=== PATIENT | female | born 1995 | race Caucasian/White ===

== ENCOUNTER 2019-10-18 07:13 | Emergency (ER) | payer MEDICAID, SELFPAY ==
--- NOTE | 2019-10-18 07:15 | ED_ITS ---
Documented by User: LUIS CARLOS eDjesus 10/18/19 10:06 HPI - General: Chief complaint: Vaginal Bleeding Stated complaint: 10 WEEKS AND BLEEDING AND CRAMPING Time Seen by Provider: 10/18/19 07:14 Source: patient Mode of arrival: ambulatory Limitations: no limitations History of Present Illness: HPI Narrative: Patient is a 24-year-old fema le here at approximately 10 weeks for complaints of pelvic cramping and bleeding that began around 2 AM this morning. She states she is passing blood clots. Patient also reports feeling lightheaded and has had 2 presyncopal episodes. Patient states she has been seen Dr. Fall for her OB care. She has not had an ultrasound performed yet due to her Medicaid delay. They have tried to visualize on bedside US as well as using doppler for heart tones but have been unsuccessful at establishing HR. MD Complaint: vaginal bleeding Onset (ago): hour(s) Quality: Cramping Radiation: pelvis Relieving factors: none Exacerbating factors: none Vaginal discharge: none Vaginal bleeding: heavy and clots Patient : Yes Associated symptoms: Deny abdominal pain, dysuria, headache(s), malaise, nausea, syncope, vaginal discharge or vomiting Review of Systems General: Reports: 10 or more systems reviewed and unremarkable except in HPI and below Const: Denies: fever, chills, body aches, fatigue or malaise Eyes: Denies: change in vision, blurry vision or photophobia Card: Reports: lightheadedness and pre-syncope; Denies: chest pain, palpitations, irregular heart rhythm, edema, syncope, shortness of breath on exertion or shortness of breath when lying down Resp: Denies: shortness of breath, productive cough, pain on inspiration, coughing up blood or chest congestion GI: Denies: abdominal pain, nausea, vomiting or diarrhea : Reports: vaginal bleeding and pelvic pain; Denies: flank pain, difficulty urinating, painful urination, urinary frequency, urinary urgency, urinary hesitancy, blood in urine, genital lesion, genital itching, vaginal odor or vaginal discharge Musc: Denies: neck pain or back pain Skin/Breast: Denies: rash Neuro: Denies: headache, numbness in extremities, weakness in extremities, changes in sensation, lack of coordination or difficulty walking PFSH ED PFSH: Social History Smoking and tobacco status: never smoked Physical Exam Const: COMMON NORMALS: no apparent distress, average body habitus, oriented x3, no limitations, healthy appearing, alert and well nourished Resp: COMMON NORMALS: normal respiratory effort and clear to auscultation bilaterally AUSCULTATION: clear to auscultation bilaterally Cardio: COMMON NORMALS: regular rhythm RATE: tachycardic (mild) RHYTHM: regular rhythm GI: COMMON NORMALS: normal to inspection, nondistended, normoactive bowel sounds, soft to palpation, no hepatosplenomegaly and no masses PALPATION: Yes soft, Yes tender (lower abdomen/pelvis; cramping per patient ) and Yes no hepatosplenomegaly : COMMON NORMALS: Yes no CVA tenderness BLADDER/KIDNEY EXAM: Yes no CVA tenderness SPECULUM EXAM - CERVIX: Yes cervical os open, Yes tissue present in the cervical os and Yes cervical bleeding OB/EXTERNAL & SPECULUM: cervical os open Back/Pelvis: COMMON NORMALS: no CVA tenderness Neuro: COMMON NORMALS: oriented x3 SENSORIUM/ORIENTATION: Yes alert Skin: COMMON NORMALS: no rashes or lesions noted GENERAL SKIN EXAM: no rashes or lesions noted Course Vital Signs: Vital signs: Vital Signs Temperature 97.8 F 10/18/19 07:21 Pulse Rate 86 10/18/19 10:08 Respiratory Rate 18 10/18/19 07:21 Blood Pressure 93/46 10/18/19 10:08 Pulse Oximetry 100 10/18/19 10:08 MDM - OB/Uterine Contractions MDM Narrative: Medical decision making narrative: pt on speculum exam had a dilated cervix with clots and products in canal and within cervix; these were removed and pt was monitored here for another hour to assess for bleeding; at this time she states bleeding has slowed significantly; her vitals and H/H are stable; she is stable for DC with follow up with OB; hcg today is roughly 1400-I have no comparisons; unknown whether this was ever a viable given we never had a confirmed heartbeat; strict return to ED precautions given; otherwise she needs to follow up with her OB Dr. Fall. Lab Data: Labs: Lab Results 10/18/19 10/18/19 10/18/19 Range/Units 07:35 07:35 07:35 WBC 12.4 H (4.0-10.0) 10^3/ uL RBC 3.59 L (4.1-5.3) 10^6/u L Hgb 10.7 L (11.5-15.3) g/dL Hct 33.0 L (37.0-47.0) % MCV 91.9 (81-99) fL MCH 29.8 (28.0-34.0) pg MCHC 32.4 (30.0-36.0) g/dL RDW 13.1 (12.1-15.1) % Plt Count 275 (130-400) 10^3/c mm MPV 9.6 (7.4-10.4) fL Neut % (Auto) 76.7 % Lymph % (Auto) 17.2 % [place] % (Auto) 4.7 % Eos % (Auto) 0.8 % Baso % (Auto) 0.3 % Neut # (Auto) 9.5 H (1.8-7.7) 10^3/u L Lymph # (Auto) 2.1 (0.8-4.8) 10^3/u L [place] # (Auto) 0.6 (0.2-0.9) 10^3/u L Eos # (Auto) 0.1 (0.0-0.8) 10^3/u L Baso # (Auto) 0.0 (0.0-0.1) 10^3/u L Nucleated RBC % (a uto) 0 % Nucleated RBCs # 0.0 /100WBC Sodium 137 (136-145) mmol/L Potassium 3.5 (3.5-5.1) mmol/L Chloride 102 (98-107) mmol/L Carbon Dioxide 21 L (22-29) mmol/L Anion Gap 17.5 (5-19) BUN 8 (6-20) mg/dL Creatinine 0.8 (0.5-0.9) mg/dL GFR Calculation 89.7 L (90-130) mL/min Glucose 153 H (65-115) mg/dL Calculated Osmolal ity 283 L (285-295) mOsm/k g Calcium 9.1 (8.5-10.5) mg/dL Total Bilirubin 0.2 (0.15-1.2) mg/dL AST 14 (0-32) U/L ALT 9 (0-33) U/L Alkaline Phosphata se 55 (35-105) IU/L Total Protein 6.3 L (6.6-8.7) g/dL Albumin 4.3 (3.5-5.2) g/dL Globulin 2.0 (1.3-4.6) g/dL Ser , Ricky i-Qnt 1409.00 mIU/mL Blood Type O Positive Rho(D) Type Positive Imaging Data^: US OB : Radiologist's impression: [address] [address] Ultrasound Report Signed Patient: Gaby Coyle Unit #: [id number] : 1995 Age/Sex: 24 / F ADM Date: 10/18/19 Loc: ER Room/Bed: Attending Dr: Ordering Provider/Ordering MD: Minoo Maher Date of Service: 10/18/19 Procedure(s): US OB limited 97368 Accession Number(s): [id number] Report Number: [id number] WS: [id number] Pelvic ultrasound, limited. HISTORY: Bleeding and cramping, approximately 10 weeks . Limited transabdominal imaging of the uterus and adnexa. Uterus is enlarged and anteverted. Thickened heterogeneous appearance of the endometrium. Endometrium measures 4.1 cm. There is a small amount of fluid along the endometrial canal. Normal size LEFT ovary. Small corpus luteum associated with the RIGHT ovary measuring 2.0 x 1.8 cm. No free fluid. US/US OB limited [id number] IMPRESSION: 1. No intrauterine gestation identified. 2. Thickened heterogeneous endometrium. Probably due to incomplete spontaneous . Please correlate with decreasing beta hCG levels to exclude ectopic . Dictated By: Roma Lopez DO Signed By: Roma Lopez DO Signed Date/Time: 10/18/19903 DD/ 0 Discharge Plan Discharge Patient Disposition: Home, Self-Care Clinical Impression: Incomplete Condition: Stable Prescriptions: No Action No Known Home Medications RF: 0 Discharge Orders: Discharge Order (Routine); Ordered 10/18/19 Ordered By: Minoo Maher Referrals: Du Fall MD [Family Provider] - Discharge Diet: Usual diet Discharge Activity: Increase activity as tolerated Patient Instructions: Spontaneous , Spontaneous Miscarriage (ED) Activity Restrictions/Additional Instructions: As discussed go ahead and contact your OB/Dr. Fall so he is aware and can continue to monitor you. You need to return to the emergency department for severe bleeding (soaking more than a pad an hour), lightheadedness/dizziness, severe pelvic pain/cramping, or any other concerns you may have. Discharge Date/Time: 10/18/19 10:08 Coding Level of Care Code ED Obstetrics Gyn for Chg Fwd Exam Detailed Documented by User: Juan Carlos Rooney DO 10/18/19 11:12 HPI - General: Chief complaint: Vaginal Bleeding Stated complaint: 10 WEEKS AND BLEEDING AND CRAMPING Time Seen by Provider: 10/18/19 07:14 [facility] ED PFSH: Social History Smoking and tobacco status: never smoked Course Vital Signs: Vital signs: Vital Signs Temperature 97.8 F 10/18/19 07:21 Pulse Rate 86 10/18/19 10:08 Respiratory Rate 18 10/18/19 07:21 Blood Pressure 93/46 10/18/19 10:08 Pulse Oximetry 100 10/18/19 10:08 MDM - OB/Uterine Contractions MDM Narrative: Medical decision making narrative: Discussed case with Minoo Maher. Agree with assessment and plan Lab Data: Labs: Lab Results 10/18/19 10/18/19 10/18/19 Range/Units 07:35 07:35 07:35 WBC 12.4 H (4.0-10.0) 10^3/ uL RBC 3.59 L (4.1-5.3) 10^6/u L Hgb 10.7 L (11.5-15.3) g/dL Hct 33.0 L (37.0-47.0) % MCV 91.9 (81-99) fL MCH 29.8 (28.0-34.0) pg MCHC 32.4 (30.0-36.0) g/dL RDW 13.1 (12.1-15.1) % Plt Count 275 (130-400) 10^3/c mm MPV 9.6 (7.4-10.4) fL Neut % (Auto) 76.7 % Lymph % (Auto) 17.2 % [place] % (Auto) 4.7 % Eos % (Auto) 0.8 % Baso % (Auto) 0.3 % Neut # (Auto) 9.5 H (1.8-7.7) 10^3/u L Lymph # (Auto) 2.1 (0.8-4.8) 10^3/u L [place] # (Auto) 0.6 (0.2-0.9) 10^3/u L Eos # (Auto) 0.1 (0.0-0.8) 10^3/u L Baso # (Auto) 0.0 (0.0-0.1) 10^3/u L Nucleated RBC % (a uto) 0 % Nucleated RBCs # 0.0 /100WBC Sodium 137 (136-145) mmol/L Potassium 3.5 (3.5-5.1) mmol/L Chloride 102 (98-107) mmol/L Carbon Dioxide 21 L (22-29) mmol/L Anion Gap 17.5 (5-19) BUN 8 (6-20) mg/dL Creatinine 0.8 (0.5-0.9) mg/dL GFR Calculation 89.7 L (90-130) mL/min Glucose 153 H (65-115) mg/dL Calculated Osmolal ity 283 L (285-295) mOsm/k g Calcium 9.1 (8.5-10.5) mg/dL Total Bilirubin 0.2 (0.15-1.2) mg/dL AST 14 (0-32) U/L ALT 9 (0-33) U/L Alkaline Phosphata se 55 (35-105) IU/L Total Protein 6.3 L (6.6-8.7) g/dL Albumin 4.3 (3.5-5.2) g/dL Globulin 2.0 (1.3-4.6) g/dL Ser , Ricky i-Qnt 1409.00 mIU/mL Blood Type O Positive Rho(D) Type Positive Discharge Plan Discharge Patient Disposition: Home, Self-Care Clinical Impression: Incomplete Condition: Stable Prescriptions: No Action No Known Home Medications RF: 0 Discharge Orders: Discharge Order (Routine); Ordered 10/18/19 Ordered By: Minoo Maher Referrals: Du Fall MD [Family Provider] - Discharge Diet: Usual diet Discharge Activity: Increase activity as tolerated Patient Instructions: Spontaneous , Spontaneous Miscarriage (ED) Activity Restrictions/Additional Instructions: As discussed go ahead and contact your OB/Dr. Fall so he is aware and can continue to monitor you. You need to return to the emergency department for severe bleeding (soaking more than a pad an hour), lightheadedness/dizziness, severe pelvic pain/cramping, or any other concerns you may have. Discharge Date/Time: 10/18/19 10:08 Coding Level of Care Code ED Obstetrics Gyn for Chg Fwd Exam Detailed
[2019-10-18 07:21] VITALS: BP 108/69; PULSE 110; RESP 18; TEMP 36.6; O2SAT 100; BMI 21.6
--- NOTE | 2019-10-18 07:22 | US_ITS ---
WS: [id number] Pelvic ultrasound, limited. HISTORY: Bleeding and cramping, approximately 10 weeks . Limited transabdominal imaging of the uterus and adnexa. Uterus is enlarged and anteverted. Thickened heterogeneous appearance of the endometrium. Endometrium measures 4.1 cm. There is a small amount of fluid along the endometrial canal. Normal size LEFT ovary. Small corpus luteum associated with the RIGHT ovary measuring 2.0 x 1.8 cm. N o free fluid. US/US OB limited [id number] IMPRESSION: 1. No intrauterine gestation identified. 2. Thickened heterogeneous endometrium. Probably due to incomplete spontaneous . Please correlate with decreasing beta hCG levels to exclude ectopic .
[2019-10-18] MEDS: sodium chloride 0.9% 1,000 ML 999 ML IV (07:43)
[2019-10-18 07:44] LABS: Basophils % 0.3 %; Eosinophils # 0.1 10^3/uL (0.0-0.8); Eosinophils % 0.8 %; Hemoglobin 10.7 g/dL (11.5-15.3); Lymphocytes # 2.1 10^3/uL (0.8-4.8); Lymphocytes % 17.2 %; Mean Corpuscular HGB Conc 32.4 g/dL (30.0-36.0); Mean Corpuscular Hemoglobin 29.8 pg (28.0-34.0); Mean Corpuscular Volume 91.9 fL (81-99); Mean Platelet Volume 9.6 fL (7.4-10.4); Monocytes # 0.6 10^3/uL (0.2-0.9); Monocytes % 4.7 %; Neutrophils # 9.5 10^3/uL (1.8-7.7); Neutrophils % 76.7 %; Nucleated Red Blood Cells % 0 %; Platelet Count 275 10^3/cmm (130-400); Red Blood Count 3.59 10^6/uL (4.1-5.3); Red Cell Distribution Width 13.1 % (12.1-15.1); White Blood Count 12.4 10^3/uL (4.0-10.0)
--- NOTE | 2019-10-18 07:45 | PC.NURSE ---
ultrasound at bedside
[2019-10-18] MEDS: ondansetron 2 mg/ML SDV 2 mL 4 MG IVP (08:03)
[2019-10-18] MEDS: morphine 4 mg/mL SDV 1 mL IVP (08:03)
[2019-10-18 08:33] LABS: Alanine Aminotransferase 9 U/L (0-33); Albumin Level 4.3 g/dL (3.5-5.2); Alkaline Phosphatase 55 IU/L (35-105); Anion Gap 17.5 (5-19); Aspartate Amino Transferase 14 U/L (0-32); Blood Urea Nitrogen 8 mg/dL (6-20); Calcium 9.1 mg/dL (8.5-10.5); Carbon Dioxide 21 mmol/L (22-29); Chloride 102 mmol/L (98-107); Glomerular Filtration Rate 89.7 mL/min (90-130); Glucose 153 mg/dL (65-115); Osmolality Calculated 283 mOsm/kg (285-295); Potassium 3.5 mmol/L (3.5-5.1); Sodium 137 mmol/L (136-145); Total Bilirubin 0.2 mg/dL (0.15-1.2); Total Protein 6.3 g/dL (6.6-8.7)
[2019-10-18 09:00] VITALS: BP 100/56; PULSE 76; O2SAT 100
[2019-10-18 10:08] VITALS: BP 93/46; PULSE 86; O2SAT 100
== END 2019-10-18 10:08 | disposition home or self-care (01) ==
PROVIDERS: Emergency Provider Physician Assistant; Family Provider Family Medicine; PCP Pediatrics Adolescent Medicine
DX: O03.4 Incomplete spontaneous abortion without complication (principal)
CPT/HCPCS: 12345; 36415; 76815; 80053; 84702; 85025; 86900; 96360; 96361; 96374; 96375; 99283; J2270; J2405; J7030

== ENCOUNTER 2019-10-21 15:28 | Emergency (ER) | payer MEDICAID, SELFPAY ==
[2019-10-21 15:37] VITALS: BP 97/70; PULSE 84; RESP 18; TEMP 36.6; O2SAT 100; BMI 22.8
--- NOTE | 2019-10-21 15:43 | USR_ITS ---
PROCEDURE INFORMATION: Exam: US Pelvis Complete, Transabdominal Exam date and time: 10/21/2019 4:46 PM Age: 24 years old Clinical indication: Pelvic pain; Patient HX: PT arrived in er 10-18-19 having miscarriage. N. P. Stated she had tissue removed from cerix area. Has not had any bleeding or passed any more clots since but is now have increased pain in RT side more than lt. Endo is thick and multitextured; Additional info: Miscarriage possible poc present TECHNIQUE: Imaging protocol: Real-time transabdominal pelvic ultrasound with image documentation. Complete exam. COMPARISON: US OB limited [id number] 10/18/2019 7:50 AM FINDINGS: Uterus/cervix: Uterus is normal. Endometrial stripe is there is a thickened endometrial tissues with focal areas of increased echogenicity scattered within it. Retained products of conception cannot be ruled out. Right adnexa: Ovary benign cyst 1.9 cm x 1.4 cm x 1.7 cm. No mass. Normal blood flow. Right ovary measures 4.2 cm x 3.7 cm x 2.1 cm Left adnexa: Ovary unremarkable No mass. Normal blood flow. Left ovary measures 2.4 cm x 1.2 cm x 2.7 cm Free fluid: None. Bladder: Normal. US/US pelvic with transvaginal IMPRESSION: 1. Thickened endometrial tissues possible retained products of conception. 2. Otherwise negative examination of the uterus and cervix. 3. Simple cyst right ovary. 4. Negative left ovary
--- NOTE | 2019-10-21 15:52 | W.ED.ABDPA2 ---
HPI - Abdominal Pain General: Chief Complaint: Abdominal Pain Stated Complaint: abd pain Time Seen by Provider: 10/21/19 15:37 History of Present Illness: HPI narrative: Patient complains about abdominal pain since this morning. Did have a miscarriage on Friday and was seen here in the ER. Products of conception were obtained patient started with some brownish-reddish discharge since the miscarriage. And that is continuing. Denies any fever chills nausea vomiting. Denies any stress or emotional outburst. MD elicited complaint: abdominal pain Pertinent past history: other (Recent miscarriage) Onset (ago): hour(s) Pain Consistency: constant Location: Suprapubic Severity: mild Quality: aching Radiation: none Exacerbating factors: nothing Relieving factors: nothing Associated Symptoms: Reports no associated symptoms; Denies chills, fever(s), nausea and vomiting Related Data: Date of Last Menstrual Period: 07/20/19 Review of Systems Const: Denies: fever, chills or body aches Eyes: Denies: change in vision or blurry vision ENMT: Denies: throat pain or nasal congestion Card: Denies: chest pain or shortness of breath on exertion Resp: Denies: shortness of breath, productive cough or non-productive cough GI: Reports: abdominal pain; Denies: nausea or vomiting : Reports: vaginal discharge (Brownish-red) Musc: Denies: extremity pain Skin/Breast: Denies: rash Neuro: Denies: headache Psych: Denies: anxiety or depression [place]/Lymph: Denies: easy bruising PFSH ED PFSH: Social History Smoking and tobacco status: never smoked Female Reproductive History: Date of last menstrual period: 07/20/19 Physical Exam Const: COMMON NORMALS: no apparent distress, average body habitus and oriented x3 HENMT: COMMON NORMALS: normocephalic HEAD & SCALP: normal to inspection and normocephalic FACE & SINUS: normal facial exam Eye: COMMON NORMALS: conjunctivae normal GENERAL EYE: normal appearance of both eyes CONJUNCTIVA: Yes conjunctivae normal Neck/C-Spine: COMMON NORMALS: no JVD Chest: COMMONS NORMALS: inspection of chest normal Resp: COMMON NORMALS: normal respiratory effort and clear to auscultation bilaterally AUSCULTATION: clear to auscultation bilaterally Cardio: COMMON NORMALS: no JVD, regular rate and regular rhythm RATE: regular rate RHYTHM: regular rhythm GI: COMMON NORMALS: normal to inspection, nondistended, normoactive bowel sounds and soft to palpation AUSCULTATION: Yes normoactive bowel sounds PALPATION: Yes soft and Yes tender Details: LLQ and RLQ : SPECULUM EXAM - VAGINA: No vaginal bleeding, No tissue present in vagina, No vaginal tenderness and Yes vaginal discharge (mucus looking) OB/EXTERNAL & SPECULUM: no tissue noted in vagina and vaginal bleeding Extremity: COMMON NORMALS: normal to inspection and full ROM Neuro: COMMON NORMALS: oriented x3 Course Vital Signs: Vital signs: Vital Signs Temperature 98 F 10/21/19 15:37 Pulse Rate 84 10/21/19 15:37 Respiratory Rate 18 10/21/19 15:37 Blood Pressure 107/74 10/21/19 16:52 Pulse Oximetry 100 10/21/19 15:37 MDM - Abdominal Pain MDM Narrative: Medical decision making narrative: discussed case with Dr. Hernandez and Dr. Rooney. orthos are documented Lab Data: Labs: Lab Results 10/21/19 10/21/19 10/21/19 Range/Units 15:59 15:59 16:28 WBC 6.7 (4.0-10.0) 10^3/ uL RBC 2.62 L (4.1-5.3) 10^6/u L Hgb 7.8 L (11.5-15.3) g/dL Hct 24.5 L (37.0-47.0) % MCV 93.5 (81-99) fL MCH 29.8 (28.0-34.0) pg MCHC 31.8 (30.0-36.0) g/dL RDW 13.4 (12.1-15.1) % Plt Count 272 (130-400) 10^3/c mm MPV 9.7 (7.4-10.4) fL Neut % (Auto) 50.4 % Lymph % (Auto) 41.4 % [place] % (Auto) 5.6 % Eos % (Auto) 1.9 % Baso % (Auto) 0.4 % Neut # (Auto) 3.4 (1.8-7.7) 10^3/u L Lymph # (Auto) 2.8 (0.8-4.8) 10^3/u L [place] # (Auto) 0.4 (0.2-0.9) 10^3/u L Eos # (Auto) 0.1 (0.0-0.8) 10^3/u L Baso # (Auto) 0.0 (0.0-0.1) 10^3/u L Nucleated RBC % (a uto) 0 % Nucleated RBCs # 0.0 /100WBC Sodium 141 (136-145) mmol/L Potassium 3.5 (3.5-5.1) mmol/L Chloride 108 H (98-107) mmol/L Carbon Dioxide 23 (22-29) mmol/L Anion Gap 13.5 (5-19) BUN 12 (6-20) mg/dL Creatinine 0.6 (0.5-0.9) mg/dL GFR Calculation 125.0 (90-130) mL/min Glucose 91 (65-115) mg/dL Calculated Osmolal ity 288 (285-295) mOsm/k g Calcium 9.1 (8.5-10.5) mg/dL Ser , Ricky i-Qnt 199.90 mIU/mL Urine Color Yellow (Yellow) Urine Appearance Cloudy (CLEAR) Urine pH 7 (5-7) Ur Specific Gravit y 1.020 (1.005-1.030) Urine Protein Neg (Negative) Urine Glucose (UA) Norm (Normal) Urine Ketones Negative (Negative) Urine Blood 3+ H (Negative) Urine Nitrate Negative (Negative) Urine Bilirubin Neg (NEGATIVE) Urine Urobilinogen Norm (Negative) mg/dL Ur Leukocyte Desi ase Negative (Negative) Discharge Plan Discharge Patient Disposition: Home, Self-Care Clinical Impression: Hemoglobin low Abdominal pain Qualifiers: Abdominal location: lower abdomen, unspecified Qualified Code(s): R10.30 - Lower abdominal pain, unspecified Condition: Stable Prescriptions: New FeroSul 325 mg (65 mg iron) tablet 325 mg PO BID 30 Days Qty: 60 RF: 0 No Action ibuprofen 800 mg tablet 800 mg PO PRN RF: 0 Discharge Orders: Discharge Order (Routine); Ordered 10/21/19 Ordered By: Nathan Escobar Referrals: Du Fall MD [Primary Care Provider] - Discharge Diet: As Directed Discharge Activity: Increase activity as tolerated Patient Instructions: Abdominal Pain (ED), Anemia (ED) Activity Restrictions/Additional Instructions: Follow-up with medical provider as directed. Take medications as prescribed. Return to the ER or your medical provider if condition worsens. Please read and understand discharge instructions. If any questions ask please. Follow-up Dr. Fall next 2 days. Rest drink plenty of fluids eat foods rich in iron. 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
[2019-10-21] MEDS: HYDROcodone-acetaminophen 7.5-325 mg Tablet 1 TAB PO (16:01)
[2019-10-21 16:08] LABS: Basophils % 0.4 %; Eosinophils # 0.1 10^3/uL (0.0-0.8); Eosinophils % 1.9 %; Hematocrit 24.5 % (37.0-47.0); Hemoglobin 7.8 g/dL (11.5-15.3); Lymphocytes # 2.8 10^3/uL (0.8-4.8); Lymphocytes % 41.4 %; Mean Corpuscular HGB Conc 31.8 g/dL (30.0-36.0); Mean Corpuscular Hemoglobin 29.8 pg (28.0-34.0); Mean Corpuscular Volume 93.5 fL (81-99); Mean Platelet Volume 9.7 fL (7.4-10.4); Monocytes # 0.4 10^3/uL (0.2-0.9); Monocytes % 5.6 %; Neutrophils # 3.4 10^3/uL (1.8-7.7); Neutrophils % 50.4 %; Nucleated Red Blood Cells % 0 %; Platelet Count 272 10^3/cmm (130-400); Red Blood Count 2.62 10^6/uL (4.1-5.3); Red Cell Distribution Width 13.4 % (12.1-15.1); White Blood Count 6.7 10^3/uL (4.0-10.0)
[2019-10-21 16:33] LABS: Anion Gap 13.5 (5-19); Blood Urea Nitrogen 12 mg/dL (6-20); Calcium 9.1 mg/dL (8.5-10.5); Carbon Dioxide 23 mmol/L (22-29); Chloride 108 mmol/L (98-107); Glucose 91 mg/dL (65-115); Osmolality Calculated 288 mOsm/kg (285-295); Potassium 3.5 mmol/L (3.5-5.1); Sodium 141 mmol/L (136-145)
[2019-10-21 16:52] VITALS: BP 107/74
[2019-10-21 16:52] LABS: Bilirubin Urine Neg (NEGATIVE); Glucose Urine UA Norm (Normal); Ketones Urine Negative (Negative); Leukocyte Esterase Urine Negative (Negative); Nitrate Urine Negative (Negative); Protein Urine Neg (Negative); Urine Appearance Cloudy (CLEAR); Urine Color Yellow (Yellow); Urobilinogen Urine Norm (Negative); pH Urine 7 (5-7)
[2019-10-21 16:53] LABS: Add Urine Microscopic? YES; Blood Urine 3+ (Negative)
--- NOTE | 2019-10-21 16:53 | PC.NURSE ---
lay 107/74 HR 81 SIT 111/73 HR 98 STAND 119/81 100
--- NOTE | 2019-10-21 16:57 | PC.NURSE ---
PELVIC COMPLETED, PATEINT TOLERATED WELL
--- NOTE | 2019-10-21 16:59 | PC.NURSE ---
US COMPLETED, PATIENT TOLERATED WELL
[2019-10-21 17:02] LABS: Add Urine Culture? No; Amorphous Sediment Urine 1+; Bacteria Urine TRACE; Mucus Urine 1+; Squamous Epithelial Cell Urine 0-4 (0-5); WBC Urine 0-4 /hpf (0-5)
[2019-10-21 17:07] VITALS: BP 107/74; PULSE 98; RESP 18; O2SAT 100
== END 2019-10-21 17:12 | disposition home or self-care (01) ==
PROVIDERS: Emergency Provider Nurse Practitioner Family; Family Provider Family Medicine; PCP Family Medicine
DX: D64.9 Anemia, unspecified (principal); R10.30 Lower abdominal pain, unspecified
CPT/HCPCS: 12345; 36415; 76830; 76856; 80048; 81001; 84702; 85025; 99283

== ENCOUNTER 2019-12-22 07:04 | Emergency (ER) | payer MEDICAID, SELFPAY ==
[2019-12-22 07:08] VITALS: BMI 22.3
[2019-12-22 07:11] VITALS: BP 111/75; PULSE 120; RESP 16; TEMP 36.8; O2SAT 97
--- NOTE | 2019-12-22 07:16 | XR_ITS ---
WS: [id number] XR chest 1V portable [id number] REASON FOR EXAM: dyspnea/cough FINDINGS: One view evaluation of the chest shows normal appearance the heart and mediastinal interfac es. [place] the lung weathers are well aerated. No pneumonia, pleural effusion, pulmonary edema, no mass effect. The hilum and apices normal. No osseous abnormalities. XR/XR chest 1V portable [id number] IMPRESSION: Negative chest for acute pathology.
[2019-12-22 08:30] LABS: Protein Urine 3+ (Negative); Specific Gravity, Urine 1.015 (1.005-1.030); Urine Appearance Cloudy (CLEAR); Urine Color Yellow (Yellow)
--- NOTE | 2019-12-22 08:30 | ED_ITS ---
HPI - Fever General: Chief Complaint: Fever Stated Complaint: FEVER, COUGH, SOB Time Seen by Provider: 12/22/19 07:16 History of Present Illness: HPI Narrative: 24-year-old female presents emergency room with fever for the last 3 days intermittent she has a slight nonproductive cough. She is concerned she may have COVID-19. She is not been exposed to anyone that she knows of she has 2 small children at the age of 3 living with her as well as a boyfriend none of them have any symptoms at this point. She has had nausea and vomiting and 1 or 2 episodes of diarrhea. With the vomiting she is had a few episodes of streaked blood in the vomitus but very minimal. MD elicited complaint: fever Associated symptoms: Deny abdominal pain, flank pain, chills, chest pain, di arrhea, dysuria, nasal congestion, nausea or vomiting Review of Systems Const: Denies: fever(s), chills, body aches, change in appetite, fatigue or malaise ENMT: Denies: throat pain, ear or mastoid pain, nasal discharge or nasal congestion Card: Denies: chest pain, edema, dyspnea on exertion or orthopnea Resp: Denies: dyspnea, productive cough or non-productive cough GI: Denies: abdominal pain, nausea, vomiting, hematemesis, coffee ground emesis, diarrhea, constipation, bloating, hematochezia or melena : Denies: flank pain, difficulty voiding, dysuria, urinary frequency or urinary urgency Skin/Breast: Denies: rash or pruritus PFS ED PFSH: Social History Smoking and tobacco status: never smoked Female Reproductive History: Date of last menstrual period: 12/22/19 Physical Exam Const: COMMON NORMALS: no acute distress GENERAL APPEARANCE: cooperative and comfortable ORIENTATION/CONSCIOUSNESS: Yes awake, Yes oriented to person, Yes oriented to place and Yes oriented to time HENMT: COMMON NORMALS: normocephalic, atraumatic, hearing grossly normal bilaterally, external ears normal, EAC's normal, TM's normal bilaterally, Normal nasal mucous membranes and turbinates present, moist oral mucous membranes and oropharynx normal HEAD & SCALP: normocephalic and atraumatic NOSE: Normal nasal mucous membranes and turbinates present EXTERNAL EAR: Yes external ears normal EXTERNAL AUDITORY CANAL: EAC's normal TYMPANIC MEMBRANE: TM's normal bilaterally Eye: COMMON NORMALS: Equal, round and reactive pupils present, EOMs intact bilaterally, conjunctivae normal and no scleral icterus CONJUNCTIVA: Yes conjunctivae normal PUPIL: Yes Equal, round and reactive pupils present Neck/C-Spine: COMMON NORMALS: full ROM, no lymphadenopathy, supple and no JVD Lymph: LYMPHATIC: no lymphadenopathy noted and no lymphedema noted Resp: COMMON NORMALS: normal respiratory effort, No retractions, No use of accessory muscles and clear to auscultation bilaterally AUSCULTATION: clear to auscultation bilaterally Cardio: COMMON NORMALS: no JVD, regular rate, regular rhythm and No murmurs present (Cardio) RATE: regular rate RHYTHM: regular rhythm GI: COMMON NORMALS: Soft to palpation and No hepatosplenomegaly present AUSCULTATION: Yes normoactive bowel sounds PALPATION: Yes Soft to palpation, No Tenderness to palpation present (GI), No Guarding due to palpation present (GI) and Yes No hepatosplenomegaly present : BLADDER/KIDNEY EXAM: Yes CVA tenderness Back/Pelvis: GENERAL BACK: Yes CVA tenderness CVA tenderness: left Extremity: COMMON NORMALS: normal to inspection, capillary refill normal, no clubbing, cyanosis or edema, no calf tenderness and no pedal edema Neuro: SENSORIUM/ORIENTATION: Yes oriented to person, Yes oriented to place and Yes oriented to time Skin: COMMON NORMALS: no rashes or lesions noted GENERAL SKIN EXAM: no rashes or lesions noted Course Vital Signs: Vital signs: Vital Signs Temperature 98.3 F 12/22/19 07:11 Pulse Rate 105 H 12/22/19 11:29 Respiratory Rate 16 12/22/19 11:29 Blood Pressure 106/75 12/22/19 11:29 Pulse Oximetry 100 12/22/19 11:29 MDM - Fever MDM Narrative: Medical decision making narrative: UA shows cystitis, based on her physical exam I think she does have a mild left-sided pyelonephritis. Based on her presenting complaint she was swabbed for COVID. She is given IV fluids Zofran she is feeling much better first dose of Zofran started on Cipro tomorrow return if has worsening problems. Encouraged to push fluids. If she were to have significant worsening would like her to return to the emergency room. Lab Data: Labs: Lab Results 12/22/19 12/22/19 12/22/19 Range/Units 07:40 07:40 08:20 WBC (4.0-10.0) 10^3/ uL RBC (4.1-5.3) 10^6/u L Hgb (11.5-15.3) g/dL Hct (37.0-47.0) % MCV (81-99) fL MCH (28.0-34.0) pg MCHC (30.0-36.0) g/dL RDW (12.1-15.1) % Plt Count (130-400) 10^3/c mm MPV (7.4-10.4) fL Neut % (Auto) % Lymph % (Auto) % [place] % (Auto) % Eos % (Auto) % Baso % (Auto) % Neut # (Auto) (1.8-7.7) 10^3/u L Lymph # (Auto) (0.8-4.8) 10^3/u L [place] # (Auto) (0.2-0.9) 10^3/u L Eos # (Auto) (0.0-0.8) 10^3/u L Baso # (Auto) (0.0-0.1) 10^3/u L Nucleated RBC % (a uto) % Nucleated RBCs # /100WBC Sodium 134 L (136-145) mmol/L Potassium 4.0 (3.5-5.1) mmol/L Chloride 94 L (98-107) mmol/L Carbon Dioxide 25 (22-29) mmol/L Anion Gap 19.0 (5-19) BUN 19 (6-20) mg/dL Creatinine 1.0 H (0.5-0.9) mg/dL GFR Calculation 69.3 L (90-130) mL/min Glucose 120 H (65-115) mg/dL Calculated Osmolal ity 276 L (285-295) mOsm/k g Lactate (0.5-2.2) mmol/L Calcium 9.5 (8.5-10.5) mg/dL Total Bilirubin 0.3 (0.15-1.2) mg/dL AST 17 (0-32) U/L ALT 10 (0-33) U/L Alkaline Phosphata se 62 (35-105) IU/L Total Protein 8.1 (6.6-8.7) g/dL Albumin 4.4 (3.5-5.2) g/dL Globulin 3.7 (1.3-4.6) g/dL HCG, Qual Negative (Negative) Urine Color Yellow (Yellow) Urine Appearance Cloudy (CLEAR) Urine pH 5.0 (5-7) Ur Specific Gravit y 1.015 (1.005-1.030) Urine Protein 3+ H (Negative) Urine Glucose (UA) Norm (Normal) Urine Ketones 1+ H (Negative) Urine Blood 3+ H (Negative) Urine Nitrate Negative (Negative) Urine Bilirubin Neg (NEGATIVE) Urine Urobilinogen Norm (Negative) mg/dL Ur Leukocyte Desi ase Trace H (Negative) Urine RBC 5-10 H (0-2) /hpf Urine WBC 25-40 H (0-5) /hpf Ur Squamous Epith Cells 5-10 H (0-5) Urine Bacteria 2+ H (NONE) Urine Mucus Trace Serum Ketones (Negative) 12/22/19 12/22/19 12/22/19 Range/Units 08:25 08:25 08:25 WBC 9.8 (4.0-10.0) 10^3/ uL RBC 4.28 (4.1-5.3) 10^6/u L Hgb 12.9 (11.5-15.3) g/dL Hct 38.6 (37.0-47.0) % MCV 90.2 (81-99) fL MCH 30.1 (28.0-34.0) pg MCHC 33.4 (30.0-36.0) g/dL RDW 11.9 L (12.1-15.1) % Plt Count 289 (130-400) 10^3/c mm MPV 9.8 (7.4-10.4) fL Neut % (Auto) 82.3 % Lymph % (Auto) 6.6 % [place] % (Auto) 10.6 % Eos % (Auto) 0.0 % Baso % (Auto) 0.2 % Neut # (Auto) 8.0 H (1.8-7.7) 10^3/u L Lymph # (Auto) 0.6 L (0.8-4.8) 10^3/u L [place] # (Auto) 1.0 H (0.2-0.9) 10^3/u L Eos # (Auto) 0.0 (0.0-0.8) 10^3/u L Baso # (Auto) 0.0 (0.0-0.1) 10^3/u L Nucleated RBC % (a uto) 0 % Nucleated RBCs # 0.0 /100WBC Sodium (136-145) mmol/L Potassium (3.5-5.1) mmol/L Chloride (98-107) mmol/L Carbon Dioxide (22-29) mmol/L Anion Gap (5-19) BUN (6-20) mg/dL Creatinine (0.5-0.9) mg/dL GFR Calculation (90-130) mL/min Glucose (65-115) mg/dL Calculated Osmolal ity (285-295) mOsm/k g Lactate 0.7 (0.5-2.2) mmol/L Calcium (8.5-10.5) mg/dL Total Bilirubin (0.15-1.2) mg/dL AST (0-32) U/L ALT (0-33) U/L Alkaline Phosphata se (35-105) IU/L Total Protein (6.6-8.7) g/dL Albumin (3.5-5.2) g/dL Globulin (1.3-4.6) g/dL HCG, Qual (Negative) Urine Color (Yellow) Urine Appearance (CLEAR) Urine pH (5-7) Ur Specific Gravit y (1.005-1.030) Urine Protein (Negative) Urine Glucose (UA) (Normal) Urine Ketones (Negative) Urine Blood (Negative) Urine Nitrate (Negative) Urine Bilirubin (NEGATIVE) Urine Urobilinogen (Negative) mg/dL Ur Leukocyte Desi ase (Negative) Urine RBC (0-2) /hpf Urine WBC (0-5) /hpf Ur Squamous Epith Cells (0-5) Urine Bacteria (NONE) Urine Mucus Serum Ketones Negative (Negative) Discharge Plan Discharge Patient Disposition: Home, Self-Care Clinical Impression: Pyelonephritis Condition: Stable Prescriptions: New ciprofloxacin HCl 500 mg tablet 500 mg PO BID Qty: 14 RF: 0 Zofran 4 mg tablet 4 mg PO Q6H PRN (Reason: nausea and vomiting) Qty: 20 RF: 0 Discharge Orders: Discharge Order (Routine); Ordered 12/22/19 Ordered By: Juan Carlos Rooney Referrals: Du Fall MD [Primary Care Provider] - Discharge Diet: Usual diet Discharge Activity: Increase activity as tolerated Activity Restrictions/Additional Instructions: Push fluids. Return to the emergency room for further problems. We did test you for COVID-19 today. I do recommend that you maintain full quarantine until the results are returned they should be back within the next 48 hours. Return to the emergency room if you have further problems breathing. Discharge Date/Time: 12/22/19 11:31 Coding Level of Care Code ED Events Manager for Becky Ca
[2019-12-22 08:31] LABS: Add Urine Culture? Yes; Add Urine Microscopic? YES; Bacteria Urine 2+; Bilirubin Urine Neg (NEGATIVE); Blood Urine 3+ (Negative); Glucose Urine UA Norm (Normal); HCG Qualitative Urine. Negative (Negative); Ketones Urine 1+ (Negative); Leukocyte Esterase Urine Trace (Negative); Mucus Urine TRACE; Nitrate Urine Negative (Negative); Urobilinogen Urine Norm (Negative); WBC Urine 25-40 /hpf (0-5)
[2019-12-22 08:36] LABS: Basophils % 0.2 %; Hematocrit 38.6 % (37.0-47.0); Hemoglobin 12.9 g/dL (11.5-15.3); Lymphocytes # 0.6 10^3/uL (0.8-4.8); Lymphocytes % 6.6 %; Mean Corpuscular HGB Conc 33.4 g/dL (30.0-36.0); Mean Corpuscular Hemoglobin 30.1 pg (28.0-34.0); Mean Corpuscular Volume 90.2 fL (81-99); Mean Platelet Volume 9.8 fL (7.4-10.4); Monocytes % 10.6 %; Neutrophils % 82.3 %; Nucleated Red Blood Cells % 0 %; Platelet Count 289 10^3/cmm (130-400); Red Blood Count 4.28 10^6/uL (4.1-5.3); Red Cell Distribution Width 11.9 % (12.1-15.1); White Blood Count 9.8 10^3/uL (4.0-10.0)
[2019-12-22 08:44] LABS: Ketone (Acetest) Serum Negative (Negative)
[2019-12-22 08:52] LABS: Alanine Aminotransferase 10 U/L (0-33); Albumin Level 4.4 g/dL (3.5-5.2); Alkaline Phosphatase 62 IU/L (35-105); Aspartate Amino Transferase 17 U/L (0-32); Blood Urea Nitrogen 19 mg/dL (6-20); Calcium 9.5 mg/dL (8.5-10.5); Carbon Dioxide 25 mmol/L (22-29); Chloride 94 mmol/L (98-107); Globulin 3.7 g/dL (1.3-4.6); Glomerular Filtration Rate 69.3 mL/min (90-130); Glucose 120 mg/dL (65-115); Osmolality Calculated 276 mOsm/kg (285-295); Sodium 134 mmol/L (136-145); Total Bilirubin 0.3 mg/dL (0.15-1.2); Total Protein 8.1 g/dL (6.6-8.7)
[2019-12-22 08:52] LABS: Lactate (Lactic Acid level) 0.7 mmol/L (0.5-2.2)
--- NOTE | 2019-12-22 08:54 | PC.NURSE ---
COVID TESTING COVID swab performed at this time. Test taken to lab.
[2019-12-22] MEDS: ondansetron 2 mg/ML SDV 2 mL 4 MG IVP (10:11)
[2019-12-22] MEDS: sodium chloride 0.9% 1,000 ML 999 ML IV (10:11)
[2019-12-22] MEDS: cefTRIAXone 1,000 MG in sodium chloride 0.9% (plus) 50 ML 100 MG IV (10:13)
[2019-12-22 11:29] VITALS: BP 106/75; PULSE 105; RESP 16; O2SAT 100
[2019-12-23 16:02] LABS: Quest SARS-CoV-2 RNA NOT DETECTED (NOT DETECTED)
--- NOTE | 2019-12-24 09:57 | PC.NURSE ---
Called pt to let them know that Covid 19 test was negative. Pt's name and verified before given result of covid.
== END 2019-12-22 11:31 | disposition home or self-care (01) ==
PROVIDERS: Emergency Provider Family Medicine; PCP Family Medicine
DX: N12 Tubulo-interstitial nephritis, not specified as acute or chronic (principal)
CPT/HCPCS: 12345; 36415; 71045; 80053; 81001; 81025; 82009; 83605; 85025; 87040; 87077; 87086; 87186; 87635; 96365; 96375; 99282; 99283; J0696; J2405; J7030

== ENCOUNTER 2019-12-25 15:08 | Emergency (ER) | payer MEDICAID, SELFPAY ==
[2019-12-25 15:50] VITALS: BP 119/71; PULSE 94; RESP 18; TEMP 36.8; O2SAT 98; BMI 23.0
[2019-12-25 17:06] LABS: Basophils % 0.6 %; Eosinophils # 0.1 10^3/uL (0.0-0.8); Eosinophils % 1.6 %; Hematocrit 34.4 % (37.0-47.0); Lymphocytes # 2.3 10^3/uL (0.8-4.8); Lymphocytes % 46.7 %; Mean Corpuscular Hemoglobin 29.3 pg (28.0-34.0); Mean Corpuscular Volume 91.5 fL (81-99); Mean Platelet Volume 9.6 fL (7.4-10.4); Monocytes # 0.4 10^3/uL (0.2-0.9); Monocytes % 8.4 %; Neutrophils # 2.1 10^3/uL (1.8-7.7); Neutrophils % 42.5 %; Nucleated Red Blood Cells % 0 %; Platelet Count 380 10^3/cmm (130-400); Red Blood Count 3.76 10^6/uL (4.1-5.3); Red Cell Distribution Width 12.4 % (12.1-15.1); White Blood Count 4.9 10^3/uL (4.0-10.0)
--- NOTE | 2019-12-25 17:11 | W.ED.DIZZY ---
HPI - Dizziness General: Chief Complaint: Dizziness Stated Complaint: abd pain,dizzy Time Seen by Provider: 12/25/19 17:04 History of Present Illness: HPI Narrative: Patient is a 24-year-old female comes to the ED with abdominal pain and some lightheaded and dizziness. Patient was recently seen here in the ED on December 21 and diagnosed with pyelonephritis. She has been taking ciprofloxacin twice a day since she was discharged. Patient says her abdominal pain has not improved and getting a little worse. She describes the abdominal pain on both right and left lower quadrants. Pain is rated an 8 out of 10. Patient says she has felt a little dizzy and lightheaded when up and working throughout the day. She denies any syncope or loss of consciousness. she has been drinking plenty of fluids for the past couple days. Associated symptoms: Denies chest pain, chills, headache(s), nausea, nasal congestion, palpitations or vomiting Associated neuro symptoms: Deny numbness in extremities Review of Systems Const: Reports: other (lightheaded); Denies: fever(s), chills or fatigue Eyes: Denies: change in vision or eye discomfort ENMT: Denies: throat pain, odynophagia, nasal discharge or nasal congestion Card: Denies: chest pain, palpitations, edema, swelling of feet/ankles, dyspnea on exertion or orthopnea Resp: Denies: dyspnea, productive cough or non-productive cough GI: Reports: abdominal pain (Abdominal pain similar to previous presentations. Pain in the lower quadrants of the abdomen.); Denies: nausea, vomiting, diarrhea, constipation or hematochezia : Denies: flank pain, dysuria or hematuria Musc: Denies: neck pain, back pain or extremity swelling Skin/Breast: Denies: rash or new lesions Neuro: Denies: headache(s), numbness in extremities or weakness in extremities PFS ED PFSH: Social History Smoking and tobacco status: never smoked Female Reproductive History: Date of last menstrual period: 12/25/19 Physical Exam Const: COMMON NORMALS: no acute distress, patient oriented x3, healthy appearing and alert GENERAL APPEARANCE: cooperative and comfortable HENMT: COMMON NORMALS: normocephalic HEAD & SCALP: normocephalic MOUTH: Normal oral and palatal mucosa present THROAT: posterior oropharynx normal and uvula midline Eye: COMMON NORMALS: Equal, round and reactive pupils present PUPIL: Yes Equal, round and reactive pupils present Neck/C-Spine: COMMON NORMALS: supple GENERAL: Yes normal visual inspection Resp: COMMON NORMALS: normal respiratory effort, No retractions, No use of accessory muscles and clear to auscultation bilaterally AUSCULTATION: clear to auscultation bilaterally Cardio: COMMON NORMALS: regular rate, regular rhythm, S1 normal heart sound present, S2 normal heart sound present, No gallops present (Cardio), No clicks present (Cardio), No murmurs present (Cardio) and Peripheral pulses 2+ throughout RATE: regular rate RHYTHM: regular rhythm HEART SOUNDS: S1 normal heart sound present and S2 normal heart sound present PERIPHERAL PULSES: Peripheral pulses 2+ throughout GI: COMMON NORMALS: Normal to inspection, nondistended, normoactive bowel sounds present, Soft to palpation and no masses PALPATION: Yes Soft to palpation and Yes Tenderness to palpation present (GI) Details: LLQ and RLQ : COMMON NORMALS: Yes no CVA tenderness BLADDER/KIDNEY EXAM: Yes no CVA tenderness Back/Pelvis: COMMON NORMALS: no CVA tenderness Extremity: COMMON NORMALS: normal to inspection and no pedal edema Neuro: COMMON NORMALS: patient oriented x3 and moves all extremities SENSORIUM/ORIENTATION: Yes alert Skin: COMMON NORMALS: no rashes or lesions noted GENERAL SKIN EXAM: no rashes or lesions noted and dry skin Course Reevaluation(s): Reevaluation #1: After IV fluids, morphine patient is feeling a lot better. I discussed with patient the discharge plan she agrees and understands plan. Vital Signs: Vital signs: Vital Signs Temperature 98.3 F 12/25/19 15:50 Pulse Rate 51 L 12/25/19 19:31 Respiratory Rate 18 12/25/19 19:31 Blood Pressure 105/70 12/25/19 19:31 Pulse Oximetry 100 12/25/19 19:31 MDM - Dizziness MDM Narrative: Medical decision making narrative: Patient is a 24-year-old female comes to the ED as a subsequent encounter for pyelonephritis. Patient was seen in the ED on December 21 and diagnosed with pyelonephritis. She has been taking Ciprofloxacillin as prescribed and is still having abdominal pain symptoms. Patient CBC CMP and UA were all unremarkable. Her potassium was 3.3 and she was given an oral potassium tablet while here in the ED. Patient was given IV fluids and IV Rocephin. She was also given morphine for pain control. Her labs have all improved compared to her previous visit 3 days ago. Patient was discharged and was given a prescription for cefdinir. She was told to continue taking her ciprofloxacin for another 2 to 3 days and if she does not see an improvement she can stop taking the Cipro and switch over to the cefdinir. Patient told to schedule an appointment with her PCP in the next 7 days for reevaluation. Patient understood and agreed with plan. Lab Data: Attestation: I reviewed the patient's lab results. Labs: Lab Results 12/25/19 12/25/19 12/25/19 Range/Units 16:59 16:59 16:59 WBC 4.9 (4.0-10.0) 10^3/ uL RBC 3.76 L (4.1-5.3) 10^6/u L Hgb 11.0 L (11.5-15.3) g/dL Hct 34.4 L (37.0-47.0) % MCV 91.5 (81-99) fL MCH 29.3 (28.0-34.0) pg MCHC 32.0 (30.0-36.0) g/dL RDW 12.4 (12.1-15.1) % Plt Count 380 (130-400) 10^3/c mm MPV 9.6 (7.4-10.4) fL Neut % (Auto) 42.5 % Lymph % (Auto) 46.7 % [place] % (Auto) 8.4 % Eos % (Auto) 1.6 % Baso % (Auto) 0.6 % Neut # (Auto) 2.1 (1.8-7.7) 10^3/u L Lymph # (Auto) 2.3 (0.8-4.8) 10^3/u L [place] # (Auto) 0.4 (0.2-0.9) 10^3/u L Eos # (Auto) 0.1 (0.0-0.8) 10^3/u L Baso # (Auto) 0.0 (0.0-0.1) 10^3/u L Nucleated RBC % (a uto) 0 % Nucleated RBCs # 0.0 /100WBC Sodium 139 (136-145) mmol/L Potassium 3.3 L (3.5-5.1) mmol/L Chloride 99 (98-107) mmol/L Carbon Dioxide 27 (22-29) mmol/L Anion Gap 16.3 (5-19) BUN 13 (6-20) mg/dL Creatinine 0.7 (0.5-0.9) mg/dL GFR Calculation 104.6 (90-130) mL/min Glucose 89 (65-115) mg/dL Calculated Osmolal ity 284 L (285-295) mOsm/k g Lactic Acid 0.7 (0.5-2.2) mmol/L Calcium 8.9 (8.5-10.5) mg/dL Total Bilirubin 0.3 (0.15-1.2) mg/dL AST 15 (0-32) U/L ALT 11 (0-33) U/L Alkaline Phosphata se 57 (35-105) IU/L Total Protein 7.5 (6.6-8.7) g/dL Albumin 4.3 (3.5-5.2) g/dL Globulin 3.2 (1.3-4.6) g/dL HCG, Qual (Negative) Urine Color (Yellow) Urine Appearance (CLEAR) Urine pH (5-7) Ur Specific Gravit y (1.005-1.030) Urine Protein (Negative) Urine Glucose (UA) (Normal) Urine Ketones (Negative) Urine Blood (Negative) Urine Nitrate (Negative) Urine Bilirubin (NEGATIVE) Urine Urobilinogen (Negative) mg/dL Ur Leukocyte Desi ase (Negative) 12/25/19 12/25/19 Range/Units 16:59 17:24 WBC (4.0-10.0) 10^3/ uL RBC (4.1-5.3) 10^6/u L Hgb (11.5-15.3) g/dL Hct (37.0-47.0) % MCV (81-99) fL MCH (28.0-34.0) pg MCHC (30.0-36.0) g/dL RDW (12.1-15.1) % Plt Count (130-400) 10^3/c mm MPV (7.4-10.4) fL Neut % (Auto) % Lymph % (Auto) % [place] % (Auto) % Eos % (Auto) % Baso % (Auto) % Neut # (Auto) (1.8-7.7) 10^3/u L Lymph # (Auto) (0.8-4.8) 10^3/u L [place] # (Auto) (0.2-0.9) 10^3/u L Eos # (Auto) (0.0-0.8) 10^3/u L Baso # (Auto) (0.0-0.1) 10^3/u L Nucleated RBC % (a uto) % Nucleated RBCs # /100WBC Sodium (136-145) mmol/L Potassium (3.5-5.1) mmol/L Chloride (98-107) mmol/L Carbon Dioxide (22-29) mmol/L Anion Gap (5-19) BUN (6-20) mg/dL Creatinine (0.5-0.9) mg/dL GFR Calculation (90-130) mL/min Glucose (65-115) mg/dL Calculated Osmolal ity (285-295) mOsm/k g Lactic Acid (0.5-2.2) mmol/L Calcium (8.5-10.5) mg/dL Total Bilirubin (0.15-1.2) mg/dL AST (0-32) U/L ALT (0-33) U/L Alkaline Phosphata se (35-105) IU/L Total Protein (6.6-8.7) g/dL Albumin (3.5-5.2) g/dL Globulin (1.3-4.6) g/dL HCG, Qual Negative (Negative) Urine Color Yellow (Yellow) Urine Appearance Clear (CLEAR) Urine pH 5 (5-7) Ur Specific Gravit y 1.020 (1.005-1.030) Urine Protein Neg (Negative) Urine Glucose (UA) Norm (Normal) Urine Ketones Negative (Negative) Urine Blood Neg (Negative) Urine Nitrate Negative (Negative) Urine Bilirubin Neg (NEGATIVE) Urine Urobilinogen Norm (Negative) mg/dL Ur Leukocyte Desi ase Negative (Negative) Discharge Plan Discharge Patient Disposition: Home, Self-Care Clinical Impression: Pyelonephritis, Light-headedness Condition: Stable Prescriptions: New cefdinir 300 mg capsule 300 mg PO BID 10 Days Qty: 20 RF: 0 No Action ciprofloxacin HCl 500 mg tablet 500 mg PO BID Qty: 14 RF: 0 ondansetron HCl [Zofran] 4 mg tablet 4 mg PO Q6H PRN (Reason: nausea and vomiting) Qty: 20 RF: 0 Discharge Orders: Discharge Order (Routine); Ordered 12/25/19 Ordered By: Mark Birmingham Referrals: Du Fall MD [Primary Care Provider] - Discharge Diet: Regular Discharge Activity: Resume usual activity Patient Instructions: Pyelonephritis Activity Restrictions/Additional Instructions: Call your PCP and set up an appointment for reevaluation in about 7 days. Continue taking your Ciprofloxacin prescription for 2-3 more days and if symptoms do not improve switch over and fill the cefdinir prescription and start taking that. Drink plenty of fluids and stay hydrated. Take Tylenol or ibuprofen for pain or fevers. Coding Level of Care Code ED Cash Processor for Becky Fwd Exam Comprehensive
[2019-12-25 17:23] LABS: Alanine Aminotransferase 11 U/L (0-33); Albumin Level 4.3 g/dL (3.5-5.2); Alkaline Phosphatase 57 IU/L (35-105); Anion Gap 16.3 (5-19); Aspartate Amino Transferase 15 U/L (0-32); Blood Urea Nitrogen 13 mg/dL (6-20); Calcium 8.9 mg/dL (8.5-10.5); Carbon Dioxide 27 mmol/L (22-29); Chloride 99 mmol/L (98-107); Globulin 3.2 g/dL (1.3-4.6); Glomerular Filtration Rate 104.6 mL/min (90-130); Glucose 89 mg/dL (65-115); Lactic Sepsis W/Reflex 0.7 mmol/L (0.5-2.2); Osmolality Calculated 284 mOsm/kg (285-295); Potassium 3.3 mmol/L (3.5-5.1); Sodium 139 mmol/L (136-145); Total Bilirubin 0.3 mg/dL (0.15-1.2); Total Protein 7.5 g/dL (6.6-8.7)
[2019-12-25 17:26] LABS: HCG, Serum Qual Negative (Negative)
[2019-12-25] MEDS: sodium chloride 0.9% 1,000 ML 999 ML IV (17:26)
[2019-12-25 17:44] LABS: Add Urine Microscopic? NO
[2019-12-25 17:47] VITALS: BP 105/69; BP 118/85; BP 99/75; PULSE 54; PULSE 69; PULSE 87
[2019-12-25 17:48] LABS: Urine Appearance Clear (CLEAR); Urine Color Yellow (Yellow); pH Urine 5 (5-7)
[2019-12-25 17:49] LABS: Bilirubin Urine Neg (NEGATIVE); Blood Urine Neg (Negative); Glucose Urine UA Norm (Normal); Ketones Urine Negative (Negative); Leukocyte Esterase Urine Negative (Negative); Nitrate Urine Negative (Negative); Protein Urine Neg (Negative); Urobilinogen Urine Norm (Negative)
[2019-12-25 18:05] LABS: Slide Review Slide Review Perform
[2019-12-25 19:16] VITALS: RESP 12
[2019-12-25] MEDS: morphine 4 mg/mL SDV 1 mL IVP (19:16)
[2019-12-25] MEDS: ondansetron 2 mg/ML SDV 2 mL 4 MG IVP (19:17)
[2019-12-25 19:31] VITALS: BP 105/70; PULSE 51; RESP 18; O2SAT 100
[2019-12-25] MEDS: cefTRIAXone 1,000 MG in sodium chloride 0.9% (plus) 50 ML 100 MG IV (19:43)
[2019-12-25] MEDS: sodium chloride 0.9% 500 ML 999 ML IV (19:47)
--- NOTE | 2019-12-25 20:36 | PC.NURSE ---
IV D/C'd intact. Pressure dressing in place.
[2019-12-25 20:39] VITALS: BP 106/45; PULSE 67; RESP 16; O2SAT 100
== END 2019-12-25 20:42 | disposition home or self-care (01) ==
PROVIDERS: Nurse Practitioner Family; Emergency Provider Physician Assistant; PCP Family Medicine
DX: R42 Dizziness and giddiness (principal); N12 Tubulo-interstitial nephritis, not specified as acute or chronic
CPT/HCPCS: 12345; 36415; 80053; 81003; 83605; 84703; 85025; 87040; 96365; 96375; 99283; J0696; J2270; J2405; J7030; J7040

== ENCOUNTER 2020-03-24 23:04 | Emergency (ER) | payer MEDICAID, SELFPAY ==
[2020-03-24 23:10] VITALS: PULSE 103; RESP 18; O2SAT 100
--- NOTE | 2020-03-24 23:23 | W.ED.ABDPA2 ---
HPI - Abdominal Pain General: Chief Complaint: Abdominal Pain Stated Complaint: abd pain Time Seen by Provider: 03/24/20 23:22 Source: patient Mode of arrival: ambulatory Limitations: no limitations History of Present Illness: HPI narrative: Patient comes in today for complaints of right upper quadrant abdominal pain. Patient seen her provider today for complaints of pain. Patient reports pain for the last 2 days. Patient at first thought the pain was due to a bladder infection. Patient has had 2 bladder infections over the last 6 months. Patient also noticed that she had a positive test at home. Patient appears well. Patient appears no acute distress. Patient reports eating made her pain better but movement makes it worse. MD elicited complaint: abdominal pain Related Data: Date of Last Menstrual Period: 02/13/20 Review of Systems General: Reports: 10 or more systems reviewed and unremarkable except in HPI and below GI: Reports: abdominal pain PFSH ED PFSH: Social History Smoking and tobacco status: never smoked Female Reproductive History: Date of last menstrual period: 02/13/20 Physical Exam Const: COMMON NORMALS: no acute distress and patient oriented x3 GENERAL APPEARANCE: cooperative HENMT: COMMON NORMALS: normocephalic and Normal external nose present HEAD & SCALP: normal to inspection and normocephalic NOSE: Normal external nose present MOUTH: Normal oral and palatal mucosa present THROAT: posterior oropharynx normal Eye: GENERAL EYE: appearance normal, both eyes and all related structures Neck/C-Spine: COMMON NORMALS: full ROM Lymph: LYMPHATIC: no lymphadenopathy noted Chest: COMMONS NORMALS: normal inspection of the chest Resp: COMMON NORMALS: normal respiratory effort EFFORT & INSPECTION: Yes able to speak in complete sentences Cardio: COMMON NORMALS: regular rate and regular rhythm RATE: regular rate RHYTHM: regular rhythm GI: COMMON NORMALS: Soft to palpation AUSCULTATION: Yes normoactive bowel sounds PALPATION: Yes Soft to palpation and Yes Tenderness to palpation present (GI) (generalized) : COMMON NORMALS: Yes no CVA tenderness BLADDER/KIDNEY EXAM: Yes no CVA tenderness Back/Pelvis: COMMON NORMALS: no CVA tenderness and thoracic and lumbar spine normal to inspection Extremity: COMMON NORMALS: normal to inspection Neuro: COMMON NORMALS: patient oriented x3 and moves all extremities Psych: COMMON NORMALS: mental status grossly normal and cooperative Skin: COMMON NORMALS: no rashes or lesions noted GENERAL SKIN EXAM: no rashes or lesions noted Course Vital Signs: Vital signs: Vital Signs Pulse Rate 103 H 03/24/20 23:10 Respiratory Rate 18 03/24/20 23:10 Pulse Oximetry 100 03/24/20 23:10 MDM - Abdominal Pain MDM Narrative: Medical decision making narrative: 24-year-old female comes in today with right upper quadrant abdominal pain. Patient appears well. Patient appears in mild pain. Exam notes abdominal tenderness on palpation. Respirations are even lungs are clear to auscultation. Skin is warm and dry color is pink. Differential diagnosis includes but not limited to cholecystitis, gastritis, urinary tract infection, ectopic . CBC noted a white count of 10,000 but otherwise normal. CMP noted no elevation in liver enzymes or lipase. Urinalysis showed a contaminated specimen. Ultrasound the gallbladder was normal. Reviewed exam with patient discussed the hCG being at 1300 and was not at a high enough level to rule out ectopic . Patient was recommended to drink plenty of fluids and recheck in 2 days for repeat labs and repeat ultrasound as deemed. Discussed red flags such as high fever, blood in vomit or stool, or uncontrolled pain. Patient reported understanding of care plan and need for follow-up or return to the ER. Lab Data: Labs: Lab Results 03/25/20 03/25/20 03/25/20 Range/Units 00:08 00:08 00:10 WBC 10.7 H (4.0-10.0) 10^3/ uL RBC 4.57 (4.1-5.3) 10^6/u L Hgb 13.5 (11.5-15.3) g/dL Hct 40.5 (37.0-47.0) % MCV 88.6 (81-99) fL MCH 29.5 (28.0-34.0) pg MCHC 33.3 (30.0-36.0) g/dL RDW 12.3 (12.1-15.1) % Plt Count 377 (130-400) 10^3/c mm MPV 9.9 (7.4-10.4) fL Neut % (Auto) 64.2 % Lymph % (Auto) 29.1 % [place] % (Auto) 4.8 % Eos % (Auto) 1.3 % Baso % (Auto) 0.3 % Neut # (Auto) 6.88 (1.8-7.7) 10^3/u L Lymph # (Auto) 3.1 (0.8-4.8) 10^3/u L [place] # (Auto) 0.5 (0.2-0.9) 10^3/u L Eos # (Auto) 0.1 (0.0-0.8) 10^3/u L Baso # (Auto) 0.0 (0.0-0.1) 10^3/u L Nucleated RBC % (a uto) 0 % Nucleated RBCs # 0.0 /100WBC Sodium 137 (136-145) mmol/L Potassium 3.8 (3.5-5.1) mmol/L Chloride 102 (98-107) mmol/L Carbon Dioxide 23 (22-29) mmol/L Anion Gap 15.8 (5-19) BUN 9 (6-20) mg/dL Creatinine 0.8 (0.5-0.9) mg/dL GFR Calculation 89.7 L (90-130) mL/min Glucose 88 (65-115) mg/dL Calculated Osmolal ity 279 L (285-295) mOsm/k g Calcium 9.4 (8.5-10.5) mg/dL Total Bilirubin 0.2 (0.15-1.2) mg/dL AST 14 (0-32) U/L ALT 10 (0-33) U/L Alkaline Phosphata se 73 (35-105) IU/L Total Protein 8.1 (6.6-8.7) g/dL Albumin 5.0 (3.5-5.2) g/dL Globulin 3.1 (1.3-4.6) g/dL Lipase 19 (13-60) U/L Ser , Ricky i-Qnt 1343.00 mIU/mL Urine Color Yellow (Yellow) Urine Appearance Sl cloudy A (CLEAR) Urine pH 6.5 (5-7) Ur Specific Gravit y 1.015 (1.005-1.030) Urine Protein Neg (Negative) Urine Glucose (UA) Norm (Normal) Urine Ketones Negative (Negative) Urine Blood Neg (Negative) Urine Nitrate Negative (Negative) Urine Bilirubin Neg (NEGATIVE) Urine Urobilinogen Norm (Negative) mg/dL Ur Leukocyte Desi ase 1+ H (Negative) Urine RBC 0-4 H (0-2) /hpf Urine WBC 5-10 H (0-5) /hpf Ur Squamous Epith Cells 55-80 H (0-5) Amorphous Sediment Not Reportable Urine Bacteria 1+ H (NONE) Discharge Plan Discharge Patient Disposition: Home Clinical Impression: Abdominal pain Qualifiers: Abdominal location: generalized Qualified Code(s): R10.84 - Generalized abdominal pain Qualifiers: Weeks of gestation: less than 8 weeks Qualified Code(s): Z3A.01 - Less than 8 weeks gestation of Condition: Stable Prescriptions: No Action ciprofloxacin HCl 500 mg tablet 500 mg PO BID Qty: 14 RF: 0 ondansetron HCl [Zofran] 4 mg tablet 4 mg PO Q6H PRN (Reason: nausea and vomiting) Qty: 20 RF: 0 Discharge Orders: Discharge Order (Routine); Ordered 03/25/20 Ordered By: Americo Barton Referrals: Du Fall MD [Primary Care Provider] - Discharge Diet: Usual diet Discharge Activity: Increase activity as tolerated Patient Instructions: Abdominal Pain (ED) Activity Restrictions/Additional Instructions: Healthy diet and activity. Drink plenty of fluids. Use acetaminophen for pain. Follow-up with primary care in 2 to 3 days for recheck on blood work and repeat ultrasound as recommended. If you cannot follow-up with primary care return to the emergency department for reevaluation. At this time we cannot rule out an ectopic due to how early the is. This is not a risk for you at this time but needs to be followed and reevaluated. Other reasons to return to the emergency department would be increased abdominal pain, vomit or bowel movements with blood in them, or high fevers. Return to the emergency department as needed or for new concerns. Coding Level of Care Code ED Obstetrics Scrub Nurse for Becky Ca Exam Comprehensive
[2020-03-25] MEDS: sodium chloride 0.9% 1,000 ML 999 ML IV (00:08)
[2020-03-25] MEDS: famotidine 20 mg/2 mL INJ 40 MG IVP (00:10)
[2020-03-25 00:21] LABS: Basophils % 0.3 %; Eosinophils # 0.1 10^3/uL (0.0-0.8); Eosinophils % 1.3 %; Hematocrit 40.5 % (37.0-47.0); Hemoglobin 13.5 g/dL (11.5-15.3); Lymphocytes # 3.1 10^3/uL (0.8-4.8); Lymphocytes % 29.1 %; Mean Corpuscular HGB Conc 33.3 g/dL (30.0-36.0); Mean Corpuscular Hemoglobin 29.5 pg (28.0-34.0); Mean Corpuscular Volume 88.6 fL (81-99); Mean Platelet Volume 9.9 fL (7.4-10.4); Monocytes # 0.5 10^3/uL (0.2-0.9); Monocytes % 4.8 %; Neutrophils # 6.88 10^3/uL (1.8-7.7); Neutrophils % 64.2 %; Nucleated Red Blood Cells % 0 %; Platelet Count 377 10^3/cmm (130-400); Red Blood Count 4.57 10^6/uL (4.1-5.3); Red Cell Distribution Width 12.3 % (12.1-15.1); White Blood Count 10.7 10^3/uL (4.0-10.0)
[2020-03-25 00:29] LABS: Specific Gravity, Urine 1.015 (1.005-1.030); Urine Color Yellow (Yellow); pH Urine 6.5 (5-7)
[2020-03-25 00:30] LABS: Add Urine Microscopic? YES; Bilirubin Urine Neg (NEGATIVE); Blood Urine Neg (Negative); Glucose Urine UA Norm (Normal); Ketones Urine Negative (Negative); Leukocyte Esterase Urine 1+ (Negative); Nitrate Urine Negative (Negative); Protein Urine Neg (Negative); Urobilinogen Urine Norm (Negative)
[2020-03-25 00:32] LABS: Add Urine Culture? No; Bacteria Urine 1+; RBC Urine 0-4 /hpf (0-2); Squamous Epithelial Cell Urine 55-80 (0-5)
[2020-03-25 00:44] LABS: Alanine Aminotransferase 10 U/L (0-33); Alkaline Phosphatase 73 IU/L (35-105); Anion Gap 15.8 (5-19); Aspartate Amino Transferase 14 U/L (0-32); Blood Urea Nitrogen 9 mg/dL (6-20); Calcium 9.4 mg/dL (8.5-10.5); Carbon Dioxide 23 mmol/L (22-29); Chloride 102 mmol/L (98-107); Globulin 3.1 g/dL (1.3-4.6); Glomerular Filtration Rate 89.7 mL/min (90-130); Glucose 88 mg/dL (65-115); Lipase 19 U/L (13-60); Osmolality Calculated 279 mOsm/kg (285-295); Potassium 3.8 mmol/L (3.5-5.1); Sodium 137 mmol/L (136-145); Total Bilirubin 0.2 mg/dL (0.15-1.2); Total Protein 8.1 g/dL (6.6-8.7)
[2020-03-25 01:15] VITALS: RESP 18; O2SAT 98
[2020-03-25] MEDS: fentaNYL 50 mcg/mL INJ 2mL 25 MCG IVP (01:15)
[2020-03-25] MEDS: ondansetron 2 mg/ML SDV 2 mL 4 MG IVP (01:30)
[2020-03-25 01:35] VITALS: RESP 18; O2SAT 98
[2020-03-25] MEDS: morphine 4 mg/mL SDV 1 mL 2 MG IVP (01:35)
--- NOTE | 2020-03-25 01:43 | PC.NURSE ---
during pt rounding, pt states pain meds is not aleviating her pain. still rating 8/10. [employer] notified
[2020-03-25 01:44] VITALS: BP 108/67; PULSE 100; RESP 18; O2SAT 100
--- NOTE | 2020-03-25 02:21 | PC.NURSE ---
I agree with this assessment
--- NOTE | 2020-03-25 23:39 | USR_ITS ---
PROCEDURE INFORMATION: Exam: US Abdomen, Limited; Right Upper Quadrant Exam date and time: 03/25/2020 12:18 AM Age: 24 years old Clinical indication: Abdominal pain; ; Additional info: Ruq abd pain TECHNIQUE: Imaging protocol: US abdomen. Real time ultrasound with image documentation. Limited exam focused on the right upper quadrant. COMPARISON: No relevant prior studies available. FINDINGS: Liver: Unremarkable liver, no focal abnormality. Gallbladder: No cholelithiasis. No gallbladder wall thickening or pericholecystic fluid. The gallbladder does not appear abnormally distended at this time. Common bile duct: No biliary dilation, common duct measures 2.6 mm. Pancreas: Visible pancreas unremarkable. Right kidney: Images of the right kidney show no hydronephrosis. US/US abdomen limited [id number] IMPRESSION: 1. No cholelithiasis or biliary tree dilation. 2. Other findings discussed above.
== END 2020-03-25 02:22 | disposition home or self-care (01) ==
PROVIDERS: Emergency Provider Nurse Practitioner Family; PCP Family Medicine
DX: O26.891 Other specified pregnancy related conditions, first trimester (principal); R10.84 Generalized abdominal pain; Z3A.01 Less than 8 weeks gestation of pregnancy
CPT/HCPCS: 12345; 76705; 80053; 81001; 83690; 84702; 85025; 96361; 96374; 96375; 99282; 99283; J2270; J2405; J3010; J3490; J7030

== ENCOUNTER 2020-03-26 18:22 | Emergency (ER) | payer MEDICAID, SELFPAY ==
[2020-03-26 18:26] VITALS: BP 106/62; PULSE 101; RESP 18; TEMP 36.5; O2SAT 99; BMI 23.0
--- NOTE | 2020-03-26 18:39 | W.ED.ABDPA2 ---
HPI - Abdominal Pain General: Chief Complaint: Abdominal Pain Stated Complaint: abd pain/ 4 weeks preg Time Seen by Provider: 03/26/20 18:28 History of Present Illness: HPI narrative: Patient complains about ongoing upper abdominal pain. Was seen here in the ER couple days ago test performed everything found negative but which was found to be probably about 4 weeks . She denies any vaginal discharge vaginal bleeding or other problems. She said she had similar pain with her past urinary tract infections because he always hurt in her upper abdomen she was told was possibly her kidneys were infected and that is why. Patient denies any urinary frequency. MD elicited complaint: abdominal pain Pertinent past history: past UTI and other Onset (ago): day(s) Pain Consistency: intermittent Location: Epigastric, LUQ and RUQ Severity: mild Quality: aching Radiation: none Migration to: no migration Exacerbating factors: movement Relieving factors: rest Associated Symptoms: Reports no associated symptoms; Denies chills, fever(s), nausea and vomiting Related Data: Date of Last Menstrual Period: 02/13/20 Review of Systems Const: Denies: fever(s), chills or body aches Eyes: Denies: change in vision or blurry vision ENMT: Denies: throat pain or nasal congestion Card: Denies: chest pain or dyspnea on exertion Resp: Denies: dyspnea, productive cough or non-productive cough GI: Reports: abdominal pain; Denies: nausea or vomiting Musc: Denies: extremity pain Skin/Breast: Denies: rash Neuro: Denies: headache(s) Psych: Denies: anxiety or depression Keon/Lymph: Denies: easy bruising PFSH ED PFSH: Social History Smoking and tobacco status: never smoked Female Reproductive History: Date of last menstrual period: 02/13/20 Physical Exam Const: COMMON NORMALS: no acute distress, average body habitus and patient oriented x3 HENMT: COMMON NORMALS: normocephalic HEAD & SCALP: normal to inspection and normocephalic FACE & SINUS: normal facial exam Eye: COMMON NORMALS: conjunctivae normal GENERAL EYE: appearance normal, both eyes and all related structures CONJUNCTIVA: Yes conjunctivae normal Neck/C-Spine: COMMON NORMALS: no JVD Chest: COMMONS NORMALS: normal inspection of the chest Resp: COMMON NORMALS: normal respiratory effort and clear to auscultation bilaterally AUSCULTATION: clear to auscultation bilaterally Cardio: COMMON NORMALS: no JVD, regular rate and regular rhythm RATE: regular rate RHYTHM: regular rhythm GI: COMMON NORMALS: Normal to inspection, nondistended, normoactive bowel sounds present PALPATION: Yes Tenderness to palpation present (GI) Details: LUQ Extremity: COMMON NORMALS: normal to inspection and full ROM Neuro: COMMON NORMALS: patient oriented x3 Course Vital Signs: Vital signs: Vital Signs Temperature 97.7 F 03/26/20 18:26 Pulse Rate 101 H 03/26/20 18:26 Respiratory Rate 18 03/26/20 18:26 Blood Pressure 106/62 03/26/20 18:26 Pulse Oximetry 99 03/26/20 18:26 Discharge Plan Discharge Prescriptions: No Action ciprofloxacin HCl 500 mg tablet 500 mg PO BID Qty: 14 RF: 0 ondansetron HCl [Zofran] 4 mg tablet 4 mg PO Q6H PRN (Reason: nausea and vomiting) Qty: 20 RF: 0 Coding Level of Care Code ED T[employer]or [employer] for Chg Roby
[2020-03-26 18:51] VITALS: BP 106/62; PULSE 100; RESP 18; O2SAT 100
[2020-03-26 19:01] LABS: Basophils % 0.4 %; Eosinophils # 0.2 10^3/uL (0.0-0.8); Eosinophils % 2.9 %; Hematocrit 38.5 % (37.0-47.0); Hemoglobin 12.8 g/dL (11.5-15.3); Lymphocytes # 2.4 10^3/uL (0.8-4.8); Lymphocytes % 30.3 %; Mean Corpuscular HGB Conc 33.2 g/dL (30.0-36.0); Mean Corpuscular Hemoglobin 30.2 pg (28.0-34.0); Mean Corpuscular Volume 90.8 fL (81-99); Mean Platelet Volume 9.6 fL (7.4-10.4); Monocytes # 0.4 10^3/uL (0.2-0.9); Monocytes % 5.3 %; Neutrophils % 60.9 %; Nucleated Red Blood Cells % 0 %; Platelet Count 369 10^3/cmm (130-400); Red Blood Count 4.24 10^6/uL (4.1-5.3); White Blood Count 8.1 10^3/uL (4.0-10.0)
[2020-03-26 19:15] LABS: Add Urine Microscopic? YES; Bilirubin Urine Neg (NEGATIVE); Blood Urine Neg (Negative); Glucose Urine UA Norm (Normal); Ketones Urine 1+ (Negative); Leukocyte Esterase Urine Negative (Negative); Nitrate Urine Negative (Negative); Protein Urine Neg (Negative); Urine Appearance SL Hazy (CLEAR); Urine Color Yellow (Yellow); Urobilinogen Urine 1 mg/dL (Negative); pH Urine 5 (5-7)
[2020-03-26 19:18] LABS: Bacteria Urine 2+; Mucus Urine 2+; Squamous Epithelial Cell Urine 15-25 (0-5); WBC Urine RARE /hpf (0-5)
[2020-03-26 19:19] LABS: Add Urine Culture? No
[2020-03-26 19:30] LABS: Alanine Aminotransferase 8 U/L (0-33); Albumin Level 4.6 g/dL (3.5-5.2); Alkaline Phosphatase 68 IU/L (35-105); Anion Gap 16.4 (5-19); Aspartate Amino Transferase 15 U/L (0-32); Blood Urea Nitrogen 11 mg/dL (6-20); Calcium 9.5 mg/dL (8.5-10.5); Carbon Dioxide 23 mmol/L (22-29); Chloride 103 mmol/L (98-107); Globulin 3.4 g/dL (1.3-4.6); Glomerular Filtration Rate 89.7 mL/min (90-130); Glucose 99 mg/dL (65-115); Osmolality Calculated 284 mOsm/kg (285-295); Potassium 3.4 mmol/L (3.5-5.1); Sodium 139 mmol/L (136-145); Total Bilirubin 0.2 mg/dL (0.15-1.2)
[2020-03-26] MEDS: nitrofurantoin SR (BID) 100 mg Capsule PO (19:31)
== END 2020-03-26 19:45 | disposition home or self-care (01) ==
PROVIDERS: Emergency Provider Nurse Practitioner Family; PCP Family Medicine
DX: R10.9 Unspecified abdominal pain (principal)
CPT/HCPCS: 12345; 80053; 81001; 84702; 85025; 99283

== ENCOUNTER 2020-04-01 14:40 | Emergency (ER) | payer MEDICAID, SELFPAY ==
[2020-04-01 14:46] VITALS: BP 122/88; PULSE 102; RESP 18; TEMP 36.7; O2SAT 98; BMI 22.1
--- NOTE | 2020-04-01 15:01 | W.ED.ABDPA2 ---
HPI - Abdominal Pain General: Chief Complaint: Abdominal Pain Stated Complaint: ABDOMEN PAIN Time Seen by Provider: 04/01/20 14:46 History of Present Illness: HPI narrative: 24-year-old G for P2 SAB 1 presents the emergency room at approximately 5 weeks gestation. She had some right flank and abdominal pain that started about 6 days ago she was started on some antibiotics the pain seemed to improve initially then over the last 2 days she has had right flank right side pain not in the area of the kidney however. She denies any vaginal discharge or bleeding. No nausea vomiting diarrhea or fever denies any dysuria urgency or frequency pain is worse with movement and reproducible with light palpation on the abdomen. She is mostly comfortable when she is laying flat but any kind of activity flexion or rotation worsens the pain MD elicited complaint: abdominal pain Pertinent past history: none Onset (ago): hour(s) Pain Consistency: constant Location: RUQ Severity: mild Quality: aching Radiation: none Migration to: no migration Exacerbating factors: movement Relieving factors: rest Associated Symptoms: Denies belching, bloating, change in bowel habits, change in stool character, chills, coffee ground emesis, constipation, GI cramping, diarrhea, dyspepsia, dysuria, excessive flatus, fever(s), heartburn, hematochezia, hematuria, hematemesis, fecal incontinence, loose stools, melena, nausea, poor appetite, syncope and vomiting Related Data: Date of Last Menstrual Period: 02/13/20 Review of Systems Const: Denies: fever(s) or chills ENMT: Denies: throat pain, ear or mastoid pain, nasal discharge or nasal congestion Card: Denies: syncope Resp: Denies: dyspnea, productive cough or non-productive cough GI: Denies: nausea, vomiting, hematemesis, coffee ground emesis, heartburn, diarrhea, constipation, bloating, GI cramping, belching, excessive flatus, fecal incontinence, change in bowel habits, change in stool character, hematochezia or melena : Denies: dysuria or hematuria Skin/Breast: Denies: rash or pruritus [facility] ED PFSH: Medical History (Updated 04/03/20 @ 17:32 by Irene Hernandez MD) Social History Smoking and tobacco status: never smoked Female Reproductive History: Date of last menstrual period: 02/13/20 Physical Exam Const: COMMON NORMALS: no acute distress GENERAL APPEARANCE: cooperative and comfortable ORIENTATION/CONSCIOUSNESS: Yes awake, Yes oriented to person, Yes oriented to place and Yes oriented to time HENMT: COMMON NORMALS: normocephalic, atraumatic and hearing grossly normal bilaterally HEAD & SCALP: normocephalic and atraumatic Eye: COMMON NORMALS: Equal, round and reactive pupils present, EOMs intact bilaterally, conjunctivae normal and no scleral icterus CONJUNCTIVA: Yes conjunctivae normal PUPIL: Yes Equal, round and reactive pupils present Neck/C-Spine: COMMON NORMALS: full ROM, no lymphadenopathy, supple and no JVD Lymph: LYMPHATIC: no lymphadenopathy noted and no lymphedema noted Resp: COMMON NORMALS: normal respiratory effort, No retractions, No use of accessory muscles and clear to auscultation bilaterally AUSCULTATION: clear to auscultation bilaterally Cardio: COMMON NORMALS: no JVD, regular rate, regular rhythm and No murmurs present (Cardio) RATE: regular rate RHYTHM: regular rhythm GI: COMMON NORMALS: Soft to palpation and No hepatosplenomegaly present AUSCULTATION: Yes normoactive bowel sounds PALPATION: Yes Soft to palpation, No Tenderness to palpation present (GI), No Guarding due to palpation present (GI) and Yes No hepatosplenomegaly present Extremity: COMMON NORMALS: normal to inspection, capillary refill normal, no clubbing, cyanosis or edema, no calf tenderness and no pedal edema Neuro: SENSORIUM/ORIENTATION: Yes oriented to person, Yes oriented to place and Yes oriented to time Skin: COMMON NORMALS: no rashes or lesions noted GENERAL SKIN EXAM: no rashes or lesions noted Course Vital Signs: Vital signs: Vital Signs Temperature 98.1 F 04/01/20 16:42 Pulse Rate 78 04/01/20 18:04 Respiratory Rate 18 04/01/20 16:42 Blood Pressure 118/80 04/01/20 18:04 Pulse Oximetry 97 04/01/20 18:04 MDM - Abdominal Pain MDM Narrative: Medical decision making narrative: Discomfort is reproducible with palpation across the right mid abdomen light palpation induces pain there is negative Jose's punch. Confirmed intrauterine small subchorionic hemorrhage. She does have exquisitely tender abdominal wall pain with mild palpation not enough to transmit any force into the abdominal cavity patient has pain. For now will observe the patient discussed with her white count is normal she has any worsening or change symptoms return to the emergency room we did discuss possibility of appendicitis given the normal white count and the exam findings if she does have appendicitis it is extremely early I do not think that is likely at this point but if her pain were to get worse she should return. Lab Data: Labs: Lab Results 04/01/20 04/01/20 04/01/20 Range/Units 15:39 15:53 15:53 WBC 7.8 (4.0-10.0) 10^3/ uL RBC 4.27 (4.1-5.3) 10^6/u L Hgb 12.5 (11.5-15.3) g/dL Hct 38.9 (37.0-47.0) % MCV 91.1 (81-99) fL MCH 29.3 (28.0-34.0) pg MCHC 32.1 (30.0-36.0) g/dL RDW 11.9 L (12.1-15.1) % Plt Count 432 H (130-400) 10^3/c mm MPV 9.2 (7.4-10.4) fL Neut % (Auto) 55.5 % Lymph % (Auto) 34.6 % [place] % (Auto) 7.4 % Eos % (Auto) 1.7 % Baso % (Auto) 0.5 % Neut # (Auto) 4.31 (1.8-7.7) 10^3/u L Lymph # (Auto) 2.7 (0.8-4.8) 10^3/u L [place] # (Auto) 0.6 (0.2-0.9) 10^3/u L Eos # (Auto) 0.1 (0.0-0.8) 10^3/u L Baso # (Auto) 0.0 (0.0-0.1) 10^3/u L Nucleated RBC % (a uto) 0 % Nucleated RBCs # 0.0 /100WBC Sodium 135 L (136-145) mmol/L Potassium 3.9 (3.5-5.1) mmol/L Chloride 100 (98-107) mmol/L Carbon Dioxide 22 (22-29) mmol/L Anion Gap 16.9 (5-19) BUN 13 (6-20) mg/dL Creatinine 0.8 (0.5-0.9) mg/dL GFR Calculation 89.7 L (90-130) mL/min Glucose 91 (65-115) mg/dL Calculated Osmolal ity 276 L (285-295) mOsm/k g Calcium 9.5 (8.5-10.5) mg/dL Total Bilirubin 0.2 (0.15-1.2) mg/dL AST 15 (0-32) U/L ALT 8 (0-33) U/L Alkaline Phosphata se 60 (35-105) IU/L Total Protein 8.0 (6.6-8.7) g/dL Albumin 4.9 (3.5-5.2) g/dL Globulin 3.1 (1.3-4.6) g/dL Lipase 11 L (13-60) U/L HCG, Qual (Negative) Ser , Ricky i-Qnt mIU/mL Urine Color Yellow (Yellow) Urine Appearance Clear (CLEAR) Urine pH 6 (5-7) Ur Specific Gravit y 1.020 (1.005-1.030) Urine Protein Neg (Negative) Urine Glucose (UA) Norm (Normal) Urine Ketones 1+ H (Negative) Urine Blood Neg (Negative) Urine Nitrate Negative (Negative) Urine Bilirubin Neg (Negative) Urine Urobilinogen Norm (Negative) mg/dL Ur Leukocyte Desi ase Negative (Negative) 04/01/20 04/01/20 Range/Units 15:53 15:53 WBC (4.0-10.0) 10^3/ uL RBC (4.1-5.3) 10^6/u L Hgb (11.5-15.3) g/dL Hct (37.0-47.0) % MCV (81-99) fL MCH (28.0-34.0) pg MCHC (30.0-36.0) g/dL RDW (12.1-15.1) % Plt Count (130-400) 10^3/c mm MPV (7.4-10.4) fL Neut % (Auto) % Lymph % (Auto) % [place] % (Auto) % Eos % (Auto) % Baso % (Auto) % Neut # (Auto) (1.8-7.7) 10^3/u L Lymph # (Auto) (0.8-4.8) 10^3/u L [place] # (Auto) (0.2-0.9) 10^3/u L Eos # (Auto) (0.0-0.8) 10^3/u L Baso # (Auto) (0.0-0.1) 10^3/u L Nucleated RBC % (a uto) % Nucleated RBCs # /100WBC Sodium (136-145) mmol/L Potassium (3.5-5.1) mmol/L Chloride (98-107) mmol/L Carbon Dioxide (22-29) mmol/L Anion Gap (5-19) BUN (6-20) mg/dL Creatinine (0.5-0.9) mg/dL GFR Calculation (90-130) mL/min Glucose (65-115) mg/dL Calculated Osmolal ity (285-295) mOsm/k g Calcium (8.5-10.5) mg/dL Total Bilirubin (0.15-1.2) mg/dL AST (0-32) U/L ALT (0-33) U/L Alkaline Phosphata se (35-105) IU/L Total Protein (6.6-8.7) g/dL Albumin (3.5-5.2) g/dL Globulin (1.3-4.6) g/dL Lipase (13-60) U/L HCG, Qual Positive H (Negative) Ser , Ricky i-Qnt 89132.00 mIU/mL Urine Color (Yellow) Urine Appearance (CLEAR) Urine pH (5-7) Ur Specific Gravit y (1.005-1.030) Urine Protein (Negative) Urine Glucose (UA) (Normal) Urine Ketones (Negative) Urine Blood (Negative) Urine Nitrate (Negative) Urine Bilirubin (Negative) Urine Urobilinogen (Negative) mg/dL Ur Leukocyte Desi ase (Negative) Discharge Plan Discharge Patient Disposition: Home Clinical Impression: Abdominal wall pain Condition: Stable Prescriptions: No Action 28-800 mg-mcg Tablet 1 tab PO DAILY RF: 0 Tylenol Extra Strength 500 mg Tablet 500 mg PO PRN RF: 0 nitrofurantoin monohyd/m-cryst 100 mg capsule 100 mg PO BID RF: 0 Discharge Orders: Discharge Order (Routine); Ordered 04/01/20 Ordered By: Juan Carlos Rooney Referrals: Du Fall MD [Primary Care Provider] - Discharge Diet: Usual diet Discharge Activity: Resume usual activity Discharge Date/Time: 04/01/20 18:04 Coding Level of Care Code ED Oyster Sorter for Chg Fwd Exam Comprehensive
[2020-04-01 15:53] LABS: Add Urine Microscopic? NO
[2020-04-01 15:55] LABS: Bilirubin Urine Neg (Negative); Blood Urine Neg (Negative); Glucose Urine UA Norm (Normal); Ketones Urine 1+ (Negative); Leukocyte Esterase Urine Negative (Negative); Nitrate Urine Negative (Negative); Protein Urine Neg (Negative); Urine Appearance Clear (CLEAR); Urine Color Yellow (Yellow); Urobilinogen Urine Norm (Negative); pH Urine 6 (5-7)
[2020-04-01 16:02] LABS: Basophils % 0.5 %; Eosinophils # 0.1 10^3/uL (0.0-0.8); Eosinophils % 1.7 %; Hematocrit 38.9 % (37.0-47.0); Hemoglobin 12.5 g/dL (11.5-15.3); Lymphocytes # 2.7 10^3/uL (0.8-4.8); Lymphocytes % 34.6 %; Mean Corpuscular HGB Conc 32.1 g/dL (30.0-36.0); Mean Corpuscular Hemoglobin 29.3 pg (28.0-34.0); Mean Corpuscular Volume 91.1 fL (81-99); Mean Platelet Volume 9.2 fL (7.4-10.4); Monocytes # 0.6 10^3/uL (0.2-0.9); Monocytes % 7.4 %; Neutrophils # 4.31 10^3/uL (1.8-7.7); Neutrophils % 55.5 %; Nucleated Red Blood Cells % 0 %; Platelet Count 432 10^3/cmm (130-400); Red Blood Count 4.27 10^6/uL (4.1-5.3); Red Cell Distribution Width 11.9 % (12.1-15.1); White Blood Count 7.8 10^3/uL (4.0-10.0)
[2020-04-01 16:17] LABS: Alanine Aminotransferase 8 U/L (0-33); Albumin Level 4.9 g/dL (3.5-5.2); Alkaline Phosphatase 60 IU/L (35-105); Anion Gap 16.9 (5-19); Aspartate Amino Transferase 15 U/L (0-32); Blood Urea Nitrogen 13 mg/dL (6-20); Calcium 9.5 mg/dL (8.5-10.5); Carbon Dioxide 22 mmol/L (22-29); Chloride 100 mmol/L (98-107); Creatinine Clr Calc Pharmacy 94.2395; Globulin 3.1 g/dL (1.3-4.6); Glomerular Filtration Rate 89.7 mL/min (90-130); Glucose 91 mg/dL (65-115); Lipase 11 U/L (13-60); Osmolality Calculated 276 mOsm/kg (285-295); Potassium 3.9 mmol/L (3.5-5.1); Sodium 135 mmol/L (136-145); Total Bilirubin 0.2 mg/dL (0.15-1.2)
[2020-04-01 16:24] LABS: HCG, Serum Qual Positive (Negative)
[2020-04-01 16:42] VITALS: BP 122/88; PULSE 100; RESP 18; TEMP 36.7; O2SAT 98
--- NOTE | 2020-04-01 16:45 | USR_ITS ---
PROCEDURE INFORMATION: Exam: US First Trimester, Transabdominal Exam date and time: 04/01/2020 5:59 PM Age: 24 years old Clinical indication: Other: Pelvic pain; Gestational age or lmp: 6 wks 6 days; ; Additional info: Confirm intrauterine preg TECHNIQUE: Imaging protocol: Real-time transabdominal obstetrical ultrasound of the maternal pelvis and a first trimester , less than 14 weeks 0 days, with image documentation. COMPARISON: US OB limited [id number] 10/18/2019 7:50 AM FINDINGS: Gestation: Single intrauterine gestation. Small yolk sac. Embryonic/ heart rate: 118 bpm. Placenta: Small anechoic subchorionic hemorrhage measuring 0.4 x 1.8 x 0.5 cm. Amniotic fluid: Amniotic fluid is normal for gestational age. BIOMETRY: [place]-Rump length: 3.0 mm. MATERNAL: Uterus: Unremarkable. Cervix: Unremarkable. Right adnexa: The right ovary measures 2.1 x 2.5 x 2.7 cm with normal blood flow. Left adnexa: The left ovary measures 3.1 x 2.8 x 2.7 cm with a 2.0 cm corpus luteal cyst and normal blood flow. Intraperitoneal space: Small amount of free peritoneal fluid in the cul-de-sac. US/US OB <=14 wk fetus w transvag IMPRESSION: 1. Single living intrauterine gestation estimated at 5 weeks 6 days. Estimated due date 11/26/2020. 2. Small anechoic subchorionic hemorrhage.
[2020-04-01 17:29] VITALS: BP 98/63; PULSE 83; O2SAT 96
--- NOTE | 2020-04-01 17:30 | PC.NURSE ---
portable ultrasound at bedside
[2020-04-01 18:04] VITALS: BP 118/80; PULSE 78; O2SAT 97
== END 2020-04-01 18:04 | disposition home or self-care (01) ==
PROVIDERS: Physician Assistant; Emergency Provider Family Medicine; PCP Family Medicine
DX: O26.891 Other specified pregnancy related conditions, first trimester (principal); R10.9 Unspecified abdominal pain; Z3A.01 Less than 8 weeks gestation of pregnancy
CPT/HCPCS: 12345; 36415; 76801; 76815; 76817; 80053; 81003; 83690; 84702; 84703; 85025; 99282; 99283

== ENCOUNTER 2020-04-03 14:19 | Emergency (ER) | payer MEDICAID, SELFPAY ==
[2020-04-03 14:43] VITALS: BP 113/75; PULSE 102; RESP 14; TEMP 36.8; O2SAT 98; BMI 22.3
--- NOTE | 2020-04-03 15:53 | MR_ITS ---
WS: [id number] EXAM: MR abdomen wo con [id number] DATE OF EXAMINATION: 04/03/2020, 1649 hours COMPARISON: None. HISTORY: 24 years old with right lower quadrant pain for the last day. 6 weeks . Assess for appendicit is. TECHNIQUE: Multiplanar multisequence imaging obtained through the lower abdomen and pelvis. FINDINGS: The bowel appears normal in caliber. Liver, spleen, kidneys, pancreas and adrenals are unremarkable. Small intrauterine gestational sac is identified. There is a small amount of free fluid in the right side of the cul-de-sac. Corpus luteum cyst left ovary. Portions of a normal appendix are seen in the right false/deep pelvis juncture. MR/MR abdomen wo con [id number] IMPRESSION: Portions of a normal appendix are identified. Intrauterine gestational sac identified. Corpus luteum cyst left ovary. Small a mount of free fluid in the right side of the cul-de-sac.
--- NOTE | 2020-04-03 16:09 | ED_ITS ---
HPI - Abdominal Pain General: Chief Complaint: Abdominal Pain Stated Complaint: 6 WEEKS PREG/ABD PAIN Time Seen by Provider: 04/03/20 15:48 Source: patient Mode of arrival: ambulatory Limitations: no limitations History of Present Illness: HPI narrative: 24-year-old female who is currently 7 weeks . Patient states she had right lower quadrant abdominal pain over the last 5 to 6 days. She had a transvaginal ultrasound last week that showed a 6-week IUP with no signs of ectopic. Patient states her pain is worse and is much worse with movement. [facility] appear concerned with appendicitis. She denies any fever. Denies any vomiting or diarrhea. MD elicited complaint: abdominal pain Onset (ago): day(s) Pain Consistency: constant Location: RLQ Severity: moderate Quality: stabbing Radiation: none Migration to: no migration Exacerbating factors: movement Relieving factors: rest Associated Symptoms: Denies chills, dysuria and fever(s) Related Data: Date of Last Menstrual Period: 02/13/20 Review of Systems Const: Denies: fever(s), chills, body aches or change in appetite Eyes: Denies: blurry vision or eye discomfort ENMT: Denies: throat pain or dental pain Card: Denies: chest pain Resp: Denies: dyspnea GI: Reports: abdominal pain : Denies: dysuria Musc: Denies: neck pain or back pain Skin/Breast: Denies: rash Neuro: Denies: headache(s) Psych: Denies: depression [place]/Lymph: Denies: easy bruising All/Imm: Denies: urticaria PFSH ED PFSH: Medical History (Updated 04/03/20 @ 17:32 by Irene Hernandez MD) Social History Smoking and tobacco status: never smoked Female Reproductive History: Date of last menstrual period: 02/13/20 Physical Exam Const: COMMON NORMALS: no acute distress, patient oriented x3 and healthy appearing HENMT: COMMON NORMALS: normocephalic and atraumatic HEAD & SCALP: normocephalic and atraumatic Eye: COMMON NORMALS: Equal, round and reactive pupils present and EOMs intact bilaterally PUPIL: Yes Equal, round and reactive pupils present Neck/C-Spine: COMMON NORMALS: full ROM and supple Chest: COMMONS NORMALS: normal inspection of the chest and normal palpation of entire chest wall Resp: COMMON NORMALS: normal respiratory effort, No retractions, No use of accessory muscles and clear to auscultation bilaterally AUSCULTATION: clear to auscultation bilaterally Cardio: COMMON NORMALS: regular rate, regular rhythm and No murmurs present (Cardio) RATE: regular rate RHYTHM: regular rhythm GI: COMMON NORMALS: Normal to inspection, nondistended, normoactive bowel sounds present, Soft to palpation and no masses PALPATION: Yes Soft to palpation and Yes Tenderness to palpation present (GI) Details: RLQ Extremity: COMMON NORMALS: normal to inspection and full ROM Neuro: COMMON NORMALS: patient oriented x3, moves all extremities and no focal motor deficits Psych: COMMON NORMALS: mental status grossly normal, Normal thought process present and cooperative THOUGHT PROCESS: Normal thought process present Skin: COMMON NORMALS: no rashes or lesions noted and no wounds GENERAL SKIN EXAM: no rashes or lesions noted Course Vital Signs: Vital signs: Vital Signs Temperature 98.2 F 04/03/20 14:43 Pulse Rate 102 H 04/03/20 14:43 Respiratory Rate 14 04/03/20 14:43 Blood Pressure 113/75 04/03/20 14:43 Pulse Oximetry 98 04/03/20 14:43 MDM - Abdominal Pain MDM Narrative: Medical decision making narrative: Patient presents here with abdominal pain. Patient's MRI here is negative for appendicitis. Could be p regnancy pains. Patient is stable for discharge and is to follow-up with her PCP in 1 to 2 days. She is return if worsening. Lab Data: Labs: Lab Results 04/03/20 04/03/20 Range/Units 16:13 16:13 WBC 8.4 (4.0-10.0) 10^3/ uL RBC 4.75 (4.1-5.3) 10^6/u L Hgb 14.1 (11.5-15.3) g/dL Hct 42.2 (37.0-47.0) % MCV 88.8 (81-99) fL MCH 29.7 (28.0-34.0) pg MCHC 33.4 (30.0-36.0) g/dL RDW 11.6 L (12.1-15.1) % Plt Count 437 H (130-400) 10^3/c mm MPV 9.2 (7.4-10.4) fL Neut % (Auto) 64.5 % Lymph % (Auto) 28.0 % [place] % (Auto) 6.0 % Eos % (Auto) 0.8 % Baso % (Auto) 0.5 % Neut # (Auto) 5.41 (1.8-7.7) 10^3/u L Lymph # (Auto) 2.4 (0.8-4.8) 10^3/u L [place] # (Auto) 0.5 (0.2-0.9) 10^3/u L Eos # (Auto) 0.1 (0.0-0.8) 10^3/u L Baso # (Auto) 0.0 (0.0-0.1) 10^3/u L Nucleated RBC % (a uto) 0 % Nucleated RBCs # 0.0 /100WBC Sodium 135 L (136-145) mmol/L Potassium 4.0 (3.5-5.1) mmol/L Chloride 98 (98-107) mmol/L Carbon Dioxide 22 (22-29) mmol/L Anion Gap 19.0 (5-19) BUN 10 (6-20) mg/dL Creatinine 0.6 (0.5-0.9) mg/dL GFR Calculation 125.0 (90-130) mL/min Glucose 84 (65-115) mg/dL Calculated Osmolal ity 275 L (285-295) mOsm/k g Calcium 10.3 (8.5-10.5) mg/dL Total Bilirubin 0.5 (0.15-1.2) mg/dL AST 16 (0-32) U/L ALT 9 (0-33) U/L Alkaline Phosphata se 68 (35-105) IU/L Total Protein 9.1 H (6.6-8.7) g/dL Albumin 5.5 H (3.5-5.2) g/dL Globulin 3.6 (1.3-4.6) g/dL Discharge Plan Discharge Patient Disposition: Home Clinical Impression: Abdominal pain Qualifiers: Abdominal location: right lower quadrant Qualified Code(s): R10.31 - Right lower quadrant pain Condition: Stable Prescriptions: No Action 28-800 mg-mcg Tablet 1 tab PO DAILY RF: 0 Tylenol Extra Strength 500 mg Tablet 500 mg PO PRN RF: 0 nitrofurantoin monohyd/m-cryst 100 mg capsule 100 mg PO BID RF: 0 Discharge Orders: Discharge Order (Routine); Ordered 04/03/20 Ordered By: Irene Hernandez Referrals: Du Fall MD [Primary Care Provider] - 1-3 days Discharge Diet: Advance as tolerated Discharge Activity: Resume usual activity Patient Instructions: Abdominal Pain (ED) Coding Level of Care Code ED Hob Grinder for Chg Fwd Exam Comprehensive
[2020-04-03] MEDS: ondansetron 2 mg/ML SDV 2 mL 4 MG IVP (16:22)
[2020-04-03 16:23] LABS: Basophils % 0.5 %; Eosinophils # 0.1 10^3/uL (0.0-0.8); Eosinophils % 0.8 %; Hematocrit 42.2 % (37.0-47.0); Hemoglobin 14.1 g/dL (11.5-15.3); Lymphocytes # 2.4 10^3/uL (0.8-4.8); Mean Corpuscular HGB Conc 33.4 g/dL (30.0-36.0); Mean Corpuscular Hemoglobin 29.7 pg (28.0-34.0); Mean Corpuscular Volume 88.8 fL (81-99); Mean Platelet Volume 9.2 fL (7.4-10.4); Monocytes # 0.5 10^3/uL (0.2-0.9); Neutrophils # 5.41 10^3/uL (1.8-7.7); Neutrophils % 64.5 %; Nucleated Red Blood Cells % 0 %; Platelet Count 437 10^3/cmm (130-400); Red Blood Count 4.75 10^6/uL (4.1-5.3); Red Cell Distribution Width 11.6 % (12.1-15.1); White Blood Count 8.4 10^3/uL (4.0-10.0)
[2020-04-03 17:10] LABS: Alanine Aminotransferase 9 U/L (0-33); Albumin Level 5.5 g/dL (3.5-5.2); Alkaline Phosphatase 68 IU/L (35-105); Aspartate Amino Transferase 16 U/L (0-32); Blood Urea Nitrogen 10 mg/dL (6-20); Calcium 10.3 mg/dL (8.5-10.5); Carbon Dioxide 22 mmol/L (22-29); Chloride 98 mmol/L (98-107); Globulin 3.6 g/dL (1.3-4.6); Glucose 84 mg/dL (65-115); Osmolality Calculated 275 mOsm/kg (285-295); Sodium 135 mmol/L (136-145); Total Bilirubin 0.5 mg/dL (0.15-1.2); Total Protein 9.1 g/dL (6.6-8.7)
[2020-04-03 17:48] VITALS: BP 103/62; PULSE 98; RESP 16; O2SAT 100
[2020-04-03 18:09] LABS: Add Urine Microscopic? YES; Bilirubin Urine Neg (Negative); Blood Urine Neg (Negative); Glucose Urine UA Norm (Normal); Ketones Urine 2+ (Negative); Leukocyte Esterase Urine Negative (Negative); Nitrate Urine Negative (Negative); Protein Urine Neg (Negative); Urine Appearance Hazy (CLEAR); Urine Color Yellow (Yellow); Urobilinogen Urine Norm (Negative); pH Urine 6 (5-7)
[2020-04-03 18:22] LABS: Add Urine Culture? No; Bacteria Urine 2+ /hpf; Mucus Urine 3+ /hpf
== END 2020-04-03 17:49 | disposition home or self-care (01) ==
PROVIDERS: Emergency Provider Emergency Medicine; PCP Family Medicine
DX: O26.891 Other specified pregnancy related conditions, first trimester (principal); R10.31 Right lower quadrant pain; Z3A.01 Less than 8 weeks gestation of pregnancy
CPT/HCPCS: 12345; 74181; 80053; 81001; 85025; 96374; 96375; 99282; 99283; J2405

== ENCOUNTER 2020-11-29 05:50 | Inpatient (IN) | payer BC, MEDICAID, SELFPAY ==
[2020-11-29] VITALS (104 sets, daily range): BP systolic 81–128; BP diastolic 46–85; PULSE 55–179; RESP 18; O2SAT 95–100; BMI 30.5
[2020-11-29 06:14] LABS: Basophils % 0.2 %; Eosinophils # 0.1 10^3/uL (0.0-0.8); Eosinophils % 0.5 %; Hematocrit 37.7 % (37.0-47.0); Hemoglobin 12.8 g/dL (11.5-15.3); Lymphocytes # 2.4 10^3/uL (0.8-4.8); Lymphocytes % 21.7 %; Mean Corpuscular Hemoglobin 31.2 pg (28.0-34.0); Mean Platelet Volume 10.3 fL (7.4-10.4); Monocytes # 0.8 10^3/uL (0.2-0.9); Monocytes % 7.4 %; Neutrophils # 7.63 10^3/uL (1.8-7.7); Neutrophils % 69.7 %; Nucleated Red Blood Cells % 0 %; Platelet Count 262 10^3/cmm (130-400); Red Cell Distribution Width 12.2 % (12.1-15.1); White Blood Count 10.9 10^3/uL (4.0-10.0)
[2020-11-29] MEDS: dextrose 5%-lactated ringers 1,000 ML 125 ML IV ×3 (07:48→16:09)
--- NOTE | 2020-11-29 08:10 | ANES.PREANE2 ---
Pre-Anesthetic Assessment Pre-Anesthetic Assessment: Height/Weight: Height 1.57 m Weight 75.75 kg Pulse Resp BP Pulse Ox 100 18 113/65 100 11/29/20 08:07 11/29/20 06:01 11/29/20 08:05 11/29/20 08:07 Preop Diagnosis: IUP Proposed Procedure: Epidural Familial anesthetic complications: None Was Beta Brannon taken within 24 hours: N/A Was Clonidine taken within 24 hours: N/A Social: Social History: No alcohol and No tobacco Exam: Pre-Anes Outpt Exam: alert, oriented x 3, clear to auscultation bilaterally and regular rate & rhythm Airway: Cervical ROM: WNL MP: 2 Dentition: Full Anesthetic Plan: ASA status: 2 Anesthesia: Regional (specify below) (epidural) Risk of > 500 ml blood loss (7ml/kg in children): Yes, adequate IV access and fluids planned Meds/Allergies Current Medications: Current Medications Generic Name Dose Route Start Last Admin Trade Name Freq PRN Reason Stop Dose Admin Dextrose/Lactated Ringer's 1,000 mls @ 125 m ls/hr 11/29/20 06:15 11/29/20 07:48 Dextrose 5%-Lact ated Ringers IV 125 mls/hr .Q8H IVANA Administration Ropivacaine 200 mg in 100 mls @ 13 mls/hr 11/29/20 06:15 11/29/20 08:10 Naropin Premix EPIDURAL 13 mls/hr .Q7H42M IVANA Administration PFSH Anesthesia PFSH: Medical History (Updated 04/11/20 @ 00:00 by ) Social History Smoking and tobacco status: never smoked Female Reproductive History: Date of last menstrual period: 02/13/20 : 3 Data Anesthesia CBC & Chem 7: 11/29/20 05:55 Other Labs: Laboratory Results - last 48 hr 11/29/20 05:55 WBC 10.9 H RBC 4.10 Hgb 12.8 Hct 37.7 MCV 92.0 MCH 31.2 MCHC 34.0 RDW 12.2 Plt Count 262 MPV 10.3 Neut % (Auto) 69.7 Lymph % (Auto) 21.7 [place] % (Auto) 7.4 Eos % (Auto) 0.5 Baso % (Auto) 0.2 Neut # (Auto) 7.63 Lymph # (Auto) 2.4 [place] # (Auto) 0.8 Eos # (Auto) 0.1 Baso # (Auto) 0.0 Nucleated RBC % (auto) 0 Nucleated RBCs # 0.0 Cardiac Studies: No Data to Display
--- NOTE | 2020-11-29 08:11 | ANES.PROC ---
Anesthesia Procedures Procedure/Date: 11/29/20 Epidural: Time Out Performed: Yes Consents Signed: Procedure Consent, NPO Consent and No Consent Needed Consent: requested by attending/covering physician, from patient, risks and benefits reviewed and patient agrees to proceed Lumbar Level: L3-L4 Epidural position: laying on side Epidural procedure: sterile prep of area, 1% lidocaine to numb the area, 18 g needle, negative for paresthesia passed, neg for paresthesia, test dose given, 1.5% xylocaine 1:200k epi (5 ml (divided dose)), 0.2% Ropivacaine bolus ml (5), placed PCEA, no systemic response, sterile dressing applied, L.U.D. no apparent complications and 0.2% Ropiavacaine @ mls/hr (13) Additional Comments: Corby at 4.5 cm, threaded to 11 cm.
[2020-11-29] MEDS: lactated ringers 1,000 ML 999 ML IV (08:44)
[2020-11-29 08:55] LABS: Amphetamines Screen Urine Negative (Negative); Barbiturates Screen Urine Negative (Negative); Benzodiazepines Screen Urine Negative (Negative); Cocaine Screen Urine Negative (Negative); Opiate Screen Urine Negative (Negative); PCP Screen Urine Negative (Negative); THC Screen Urine Negative (Negative)
--- NOTE | 2020-11-29 16:39 | PM.DELIVERY ---
Delivery Note: Date of delivery: November 29, 2020 this 25-year-old 3 now para 3 female at 40 weeks and 3 days gestation had spontaneous onset of labor early the morning of admission. She arrived at [facility] OB department and around 530 the morning of delivery. At that time she was approximately 4 cm dilated. She was allowed to progress in labor without intervention initially. She was having increased pain therefore she received epidural anesthesia. She dilated to approximately 8 cm dilatation but was not making much change and therefore artificial rupture membranes was accomplished. She then went back to 6 cm dilated. She then progressed over the next few hours to complete cervical dilatation and delivered by spontaneous vaginal delivery healthy, viable female infant at 1622. Upon delivery of the head it right occiput anterior position the mouth and nose were suctioned at the perineum. There was lots of fluid and baby continued to spit up fluid. Remainder the infant was delivered without difficulty beginning with the right shoulder anteriorly in the left shoulder posteriorly. The was then laid on mother's abdomen where more suctioning was performed with a bulb syringe. After approximately 1 minute, the umbilical cord was cut by the 's father. The cord had 3 blood vessels. There was no nuchal cord. The infant was then handed off to the warmer where DeLee suction was obtained with approximately 10 mL of clear fluid gathered. Apgars were 8 and 9 at 1 and 5 minutes respectively. The infant weighed 8 pounds 4 ounces and estimated blood loss approximate 124 mL. There was no episiotomy and a very small right periurethral laceration was present which did not require surgical closure. Fundal massage and sweep of the vaginal vault found just a very few clots and a firm fundus. There were no complications of the labor and delivery process. Pre-Delivery Course: This patient was followed by this physician throughout her . There were no major problems or concerns. Maternal blood type was O+ with antibody screen negative. Hepatitis B, hepatitis C, RPR and HIV were negative. Rubella was immune and group B strep was negative. Covid testing was also negative. This patient went into active labor on the day of delivery. Delivery: Spontaneous vaginal delivery. Post-Delivery Status: Patient appears to be doing well at this time and will be followed for routine postdelivery care. A&P Assessment and plan (1) Normal spontaneous vaginal delivery: Patient is doing well at this time and will be followed for routine postdelivery care. Status: Acute Coding Level of Care Code Acute Import Export Coordinator for Chg Fwd Diagnoses Normal spontaneous vaginal delivery O80
[2020-11-29] MEDS: acetaminophen 325 mg Tablet 650 MG PO (16:59)
[2020-11-29] MEDS: ibuprofen 800 mg tablet PO (20:57)
[2020-11-29] MEDS: lanolin oint 7 gm 1 APPLIC TOPICAL (20:57)
[2020-11-29] MEDS: docusate sodium 100 mg Capsule PO (20:57)
[2020-11-30] VITALS (9 sets, daily range): BP systolic 88–115; BP diastolic 47–66; PULSE 73–89; RESP 16; TEMP 36.4–36.7; O2SAT 100
[2020-11-30 04:48] LABS: Hematocrit 32.1 % (37.0-47.0); Mean Corpuscular HGB Conc 34.3 g/dL (30.0-36.0); Mean Corpuscular Hemoglobin 31.6 pg (28.0-34.0); Mean Corpuscular Volume 92.2 fL (81-99); Mean Platelet Volume 10.3 fL (7.4-10.4); Platelet Count 217 10^3/cmm (130-400); Red Blood Count 3.48 10^6/uL (4.1-5.3); Red Cell Distribution Width 12.1 % (12.1-15.1)
[2020-11-30] MEDS: HYDROcodone-acetaminophen 5-325 mg Tablet PO (07:04)
--- NOTE | 2020-11-30 09:22 | PM.OBGYDC ---
Discharge Providers INSURANCE SPECIALIST Date of Admission: 11/29/20 05:50 Date of Discharge: 11/30/20 Attending Provider at Admission: Du Fall MD Attending Provider at Discharge: Du Fall MD Primary Care Provider: Du Fall MD Diagnoses at Discharge Discharge Diagnosis (1) Normal spontaneous vaginal delivery: Status: Acute Reason for Visit Reason for Visit: CONTRACTIONS Hospital Course Hospital Course Patient delivered by spontaneous vaginal delivery yesterday evening after spontaneous onset of labor early in the morning yesterday. There was no problems with the labor and delivery process. Mom has done very well with just mild lochia. The infant is breast-feeding well with no concerns or problems. She is felt to be stable for discharge home this evening. Information Peripartum Data: Infant Delivery Method: Vaginal Physical Exam Const: COMMON NORMALS: no acute distress, no limitations, healthy appearing, alert and well nourished GENERAL APPEARANCE: cooperative and comfortable HENMT: COMMON NORMALS: moist oral mucous membranes Resp: COMMON NORMALS: normal respiratory effort, No retractions, No use of accessory muscles and clear to auscultation bilaterally AUSCULTATION: clear to auscultation bilaterally Cardio: COMMON NORMALS: regular rate, regular rhythm and No murmurs present (Cardio) RATE: regular rate RHYTHM: regular rhythm GI: COMMON NORMALS: Normal to inspection, nondistended, normoactive bowel sounds present, Soft to palpation and non-tender (Fundus is firm and well below the umbilicus.) PALPATION: Yes Soft to palpation Extremity: COMMON NORMALS: normal to inspection, full ROM, no calf tenderness and no pedal edema Neuro: COMMON NORMALS: no focal motor deficits and no sensory deficits noted SENSORIUM/ORIENTATION: Yes alert Psych: COMMON NORMALS: mental status grossly normal, Normal thought process present, normal affect and activity/motor behavior normal THOUGHT PROCESS: Normal thought process present Urinary Catheter Management^: Pete: Cath Placed During This Visit: yes, but has since been removed by the nurse Reason for Continuing Indwelling Catheter: Decision to DC Catheter Urinary Catheter Date of Insertion: 11/29/20 Urinary Catheter Time of Insertion: 08:10 Date Urinary Catheter Removed: 11/29/20 Time Urinary Catheter Discontinued: 15:48 Discharge Data Data Completed and Pending: Labs from last 24 hours 11/30/20 04:40 WBC 11.0 H RBC 3.48 L Hgb 11.0 L Hct 32.1 L MCV 92.2 MCH 31.6 MCHC 34.3 RDW 12.1 Plt Count 217 MPV 10.3 Vitals: Last Vital Signs Pulse 89 11/30/20 04:38 Resp 18 11/29/20 06:01 BP 114/61 11/30/20 04:38 Pulse Ox 100 11/29/20 08:32 Discharge Plan Discharge Patient Disposition: Home Condition: Stable Prescriptions: New docusate sodium [DOK] 100 mg Capsule 100 mg PO BID Qty: 60 RF: 2 ibuprofen 800 mg Tablet 800 mg PO TID Qty: 90 RF: 2 Continued 28-800 mg-mcg Tablet 1 tab PO DAILY RF: 0 No Action acetaminophen [Tylenol Extra Strength] 500 mg Tablet 500 mg PO PRN RF: 0 Discharge Orders: Discharge Order (Routine); Ordered 11/30/20 Ordered By: Du Fall Referrals: Du Fall MD [Primary Care Provider] - 6 Weeks Discharge Diet: Usual diet Discharge Activity: Resume usual activity Patient Instructions: Opioid Safety Discharge Attestations INSURANCE SPECIALIST Time Spent in Discharge Care*: less than 30 min Specific Discharge Activities: Specific discharge activities: educating patient, documenting/other paperwork and evaluating patient/reviewing data Status at Discharge: Cognitive status at discharge: cognitively intact, Functional status at discharge: independent ambulation Overall status at discharge: patient is back to baseline Coding Level of Care Code Acute Administration Physician for Chg Fwd Diagnoses Normal spontaneous vaginal delivery O80
[2020-11-30] MEDS: docusate sodium 100 mg Capsule PO (09:52)
[2020-11-30] MEDS: prenatal vitamin Capsule 1 CAP PO (09:52)
[2020-11-30] MEDS: ibuprofen 800 mg tablet PO (09:52)
--- NOTE | 2020-11-30 19:56 | PC.NURSE ---
Patient was offered MMR vaccine by RAS Monson and patient refused. RAS Monson had patient sign refusal for patient record.
== END 2020-11-30 20:25 | disposition home or self-care (01) | DRG 807 ==
LOC: OPOB 05:51 → OBGYN 05:51
PROVIDERS: Admitting Provider Family Medicine; PCP Family Medicine; Visit Provider Family Medicine
DX: O80 Encounter for full-term uncomplicated delivery (principal); Z37.0 Single live birth; Z3A.40 40 weeks gestation of pregnancy
CPT/HCPCS: 36415; 51702; 59025; 59409; 80306; 85025; 85027; 99211; J2795

== ENCOUNTER 2021-01-02 17:48 | Emergency (ER) | payer BC, MEDICAID, SELFPAY ==
--- NOTE | 2021-01-02 17:49 | XRR_ITS ---
PROCEDURE INFORMATION: Exam: XR Left Shoulder Exam date and time: 01/02/2021 5:49 PM Age: 25 years old Clinical indication: Pain; Shoulder; Left TECHNIQUE: Imaging protocol: XR Left shoulder. Views: 2 or more views. COMPARISON: No relevant prior studies available. FINDINGS: Bones/joints: The glenohumeral joint is intact. The acromioclavicular joint is intact. No fracture or other acute osseous abnormality. Soft tissues: The soft tissues appear unremarkable. XR/XR shoulder LT min 2V* [id number] IMPRESSION: Unremarkable left shoulder radiographic series.
[2021-01-02 18:58] VITALS: BP 116/78; PULSE 69; RESP 18; TEMP 36.3; O2SAT 96; BMI 24.7
[2021-01-02 19:04] VITALS: PULSE 74
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
[2021-01-02 19:45] VITALS: RESP 16
== END 2021-01-02 19:46 | disposition home or self-care (01) ==
PROVIDERS: Emergency Provider Physician Assistant; PCP Family Medicine
DX: M25.512 Pain in left shoulder (principal)
CPT/HCPCS: 73030; 99282

== ENCOUNTER → 2021-03-07 10:19 | Outpatient (BNVA) | payer BC, MEDICAID, SELFPAY | PROVIDERS: PCP Family Medicine; Visit Provider Obstetrics & Gynecology | DX: Z12.4 Encounter for screening for malignant neoplasm of cervix (principal) | CPT/HCPCS: 88175 ==

== ENCOUNTER → 2021-03-16 15:09 | Outpatient (BNVA) | payer BC, MEDICAID, SELFPAY | PROVIDERS: PCP Family Medicine; Visit Provider Obstetrics & Gynecology | DX: Z30.2 Encounter for sterilization (principal); Z20.822 Contact with and (suspected) exposure to COVID-19 | CPT/HCPCS: 87635 ==

== ENCOUNTER 2021-03-22 06:49 | Day surgery (SDC) | payer BC, MEDICAID, SELFPAY ==
[2021-03-21 13:38] VITALS: BMI 28.3
[2021-03-22] VITALS (13 sets, daily range): BP systolic 104–137; BP diastolic 47–79; PULSE 54–84; RESP 13–22; TEMP 36.1–36.9; O2SAT 99–100
[2021-03-22 07:27] LABS: OR HCG Qualitative Urine Negative (Negative)
[2021-03-22 07:36] LABS: Basophils % 0.6 %; Eosinophils # 0.1 10^3/uL (0.0-0.8); Hematocrit 40.5 % (37.0-47.0); Hemoglobin 13.5 g/dL (11.5-15.3); Lymphocytes # 2.7 10^3/uL (0.8-4.8); Lymphocytes % 39.5 %; Mean Corpuscular HGB Conc 33.3 g/dL (30.0-36.0); Mean Corpuscular Hemoglobin 30.1 pg (28.0-34.0); Mean Corpuscular Volume 90.4 fl (81-99); Mean Platelet Volume 9.7 fL (7.4-10.4); Monocytes # 0.5 10^3/uL (0.2-0.9); Monocytes % 7.3 %; Neutrophils # 3.46 10^3/uL (1.8-7.7); Neutrophils % 50.5 %; Nucleated Red Blood Cells % 0 %; Platelet Count 435 10^3/cmm (130-400); Red Blood Count 4.48 10^6/uL (4.1-5.3); Red Cell Distribution Width 11.8 % (12.1-15.1); White Blood Count 6.9 10^3/uL (4.0-10.0)
[2021-03-22] MEDS: sodium chloride 0.9% 1,000 ML 30 ML IV (07:46)
--- NOTE | 2021-03-22 08:08 | P.ANESASSM_ITS ---
Pre-Anesthetic Assessment Pre-Anesthetic Assessment: Height/Weight: Height 1.6 m Weight 72.575 kg Temp Pulse Resp BP Pulse Ox 98.4 F 84 18 137/79 99 03/22/21 07:07 03/22/21 07:07 03/22/21 07:07 03/22/21 07:07 03/22/21 07:07 Preop Diagnosis: Undesired fertility Proposed Procedure: Operation Date: 03/22/21 08:15 Proposed Procedures p Laparscopic total bilateral salpingectomy 80948 Z30.2(Bilateral) - Sharon Maxwell MD Familial anesthetic complications: None Was Beta Brannon taken within 24 ho urs: N/A Was Clonidine taken within 24 hours: N/A Last intake: Intake Last Liquid Date 03/21/21 Last Liquid Time 23:00 Last Solid Date 03/21/21 Last Solid Time 23:00 Social: Social History: No alcohol and No tobacco Exam: Pre-Anes Outpt Exam: alert, oriented x 3, clear to auscultation bilater ally and regular rate & rhythm Airway: Cervical ROM: WNL MP: 1 Dentition: Full Anesthetic Plan: ASA status: 1 Anesthesia: General Risk of > 500 ml blood loss (7ml/kg in children): No Meds/Allergies Current Medications: Current Medications Generic Name Dose Route Start Last Admin Trade Name Freq PRN Reason Stop Dose Admin Sodium Chloride 1,000 mls @ 30 ml s/hr 03/22/21 07:45 03/22/21 07:46 Sodium Chloride 0.9% IV 03/23/21 07:44 30 mls/hr .Q24H IVANA Administration PFSH Anesthesia PFSH: Medical History No pertinent past medical history Denies diabetes, asthma, hypertension, seizures, DVT/PE PCP: Dr. Fall Surgical History S/P wisdom tooth extraction Family History Denies family history of Colon cancer Ovarian cancer Diabetes Heart disease Hyperlipidemia Breast cancer Hypertension Uterine cancer Thyroid condition Stroke Social History Smoking and tobacco status: never smoked Female Reproductive History: Date of last menstrual period: 03/21/21 Data Anesthesia CBC & Chem 7: 03/22/21 07:23 Other Labs: Laboratory Results - last 48 hr 03/22/21 03/22/21 03/22/21 07:10 07:23 07:25 WBC 6.9 RBC 4.48 Hgb 13.5 Hct 40.5 MCV 90.4 MCH 30.1 MCHC 33.3 RDW 11.8 L Plt Count 435 H MPV 9.7 Neut % (Auto) 50.5 Lymph % (Auto) 39.5 [place] % (Auto) 7.3 Eos % (Auto) 2.0 Baso % (Auto) 0.6 Neut # (Auto) 3.46 Lymph # (Auto) 2.7 [place] # (Auto) 0.5 Eos # (Auto) 0.1 Baso # (Auto) 0.0 Nucleated RBC % (auto) 0 Nucleated RBCs # 0.0 Urine HCG, Qual Negative Blood Type O Positive Rho(D) Type Positive Cardiac Studies: No Data to Display
--- NOTE | 2021-03-22 08:50 | W.PM.OPSUD ---
Surgery/Procedure H&P Update DATE OF PROCEDURE: March 22, 2021 DATE H&P PERFORMED: 03/07/21 H&P UPDATE INFORMATION: I have reviewed H&P completed within last 30 days, I have examined patient prior to procedure, No changes to prior documentation and H&P is in [facility] [place] on date indicated PREOP DIAGNOSIS: Undesired fertility PLANNED PROCEDURE: Operation Date: 03/22/21 08:15 Proposed Procedures p Laparscopic total bilateral salpingectomy 08576 Z30.2(Bilateral) - Sharon Maxwell MD
[2021-03-22] MEDS: fentaNYL 50 mcg/mL INJ 2mL IVP (10:48)
--- NOTE | 2021-03-22 10:48 | PM.OP ---
Operative Report Date of procedure: March 22, 2021 OPERATIVE REPORT Date of surgery: 03/22/2021 Date of dictation: 03/22/2021 Preoperative diagnosis: Multiparity desiring permanent sterilization Postoperative diagnosis/findings: 8-week size anteverted uterus, no adnexal masses, on laparoscopy no injury at site of entry, no adhesions noted intra-abdominally, normal tubes and ovaries bilaterally. Appendix appeared inflamed and was likely adherent to the anterior surface of the uterus and this was taken down easily. Decision was made to intraoperative appendectomy and consult was called to Dr. Garzon coconut boiler. Procedure done: Laparoscopic bilateral total salpingectomy--laparoscopic appendectomy by Dr. Garzon-see his operative report for details Specimens removed/disposition of specimens: Bilateral tubes and appendix sent to pathology Surgeon: Dr. Sharon Lane assistant professor of anthropology: Corinne Cruz Anesthesia: General endotracheal tube anesthesia Estimated blood loss: 25 ml Intravenous fluids: 700 Urine output: 200ml of clear urine at the end of procedure Medications: As per anesthesia records and Zosyn because appendectomy was done. Complications: None, patient was extubated and taken to the recovery room in a stable condition. PROCEDURE: After consents were signed patient was taken to the operating room where she was placed under general anesthesia without any difficulty. She was placed supine on the table in the lithotomy position. Exam under anesthesia revealed findings noted above. She was then prepped and draped in usual sterile fashion. Weighted speculum and anterior wall retractors were placed in the vagina, cervix visualized and grasped with a tenaculum. ZUMI uterine manipulator was placed into the uterus without any difficulty. Catheter was placed, instruments were removed from the vagina and the legs were lowered. Attention was turned towards the abdomen where local anesthetic was injected in to her umbilicus. A 10 mm skin incision was made and a 10 mm port was placed through the umbilicus using an open technique--- fascia was identified and tented up with [place] clamps and directly incised using curved Mayos. Peritoneum was then bluntly entered digitally and palpation revealed no adhesions around site of entry. Turk trocar was then attached to the fascia and inflated. Once intra-abdominal entry was confirmed gas was turned on and intra-abdominal opening pressure was 2. The abdomen is insufflated to the pressure was 14. Survey of the abdomen revealed findings noted above. Two 5 mm trocar was placed into the left and right lower quadrant under direct visualization after injecting local anesthetic. The Voyant device was used to clamp, cauterize and then cut the mesosalpinx under the fallopian tube starting at the fimbriated end and moving towards the uterus. This was done in a sequential fashion in such a way that the entire fallopian tube was from the sidewall and the uterus. The small cornual stump was cauterized as well. This was done first on the right side and then the left side without any difficulty. The right and left fallopian tubes were taken out of the umbilical port without any difficulty. No bleeding was noted at sites of surgery. During this procedure laparoscopic appendectomy was performed by Dr. Garzon---see procedure note for details. Trochars were removed under direct visualization. All instruments removed from the abdomen and the abdomen was desufflated. The fascia on the umbilical port was closed with 0 Vicryl in a continuous fashion and good reapproximation was obtained-care was taken to tent up the fascia throughout the closure. The skin incisions was closed with 4-0 Monocryl in a subcuticular fashion good reapproximation and hemostasis was noted. The incisions were dressed with Steri-Strips Telfa and Tegaderm. The ZUMI and Pete catheter were removed and good hemostasis was noted. The patient was extubated without any difficulty and taken to the recovery room in a stable condition. FOLLOW UP: Follow-up in 2 weeks and 6 weeks with surgeon MEDICATION ON DISCHARGE: Colace 100 mg by mouth every 12 hours when necessary constipation, 30 tablets, no refills Ibuprofen 800 mg by mouth every 8 hours when necessary pain, 60 tablets, no refills. [place] 5/325 mg 1 tablet by mouth every 6 hours when necessary pain,25 tablets, no refills Continue other home medication DISPOSITION: Home in a stable condition This documentation was created by [employer] white goods appliance tech software (known for inherent white goods appliance tech error). Every effort was made to assure accuracy of white goods appliance tech. Any obvious errors or omissions should be clarified with the author of the document. Pre-op Diagnosis: Undesired fertility
[2021-03-22] MEDS: acetaminophen 1,000 MG/100 ML PIGGYBACK 400 MG IV (11:04)
[2021-03-22] MEDS: piperacillin-tazobactam 3.375 GM in sodium chloride 0.9% (plus) 50 ML IV (11:10)
[2021-03-22] MEDS: HYDROcodone-acetaminophen 5-325 mg Tablet 1 TAB PO (11:50)
--- NOTE | 2021-03-22 14:12 | PM.OP ---
Operative Report Date of procedure: March 22, 2021 Pre-op Diagnosis: Chronic appendicitis, Intra-Op consult Post-op diagnosis: same Procedure Done: Laparoscopic appendectomy Laparoscopic bilateral total salpingectomy - refer to Dr. Lane's note Specimens removed/disposition: Appendix Surgeon: Jonny Garzon Anesthesia: General Condition: stable Disposition: PACU Brief History: This is a 25-year-old female who was undergoing laparoscopic bilateral salpingectomy for sterilization by and was noted to have an inflamed appendix. I was therefore consulted intraoperatively for evaluation and appendectomy Procedure: The patient had 10 mm umbilical port and a 5 mm port in the right lower quadrant and left lower quadrant, which has been placed by . The appendix was noted in the right lower quadrant and appeared chronically inflamed. Using Voyent energy device the mesoappendix was divided up to the base of the appendix. An [place] MOISES stapler 45mm long 3.5mm blue load x 2 was introduced to divide the appendix at it's base. There was no bleeding noted and the staple line appeared intact. EndoCatch bag was introduced to remove the appendix. At this point Dr. Lane continued with her part of the case. Please refer to Dr. Lane's note for rest of the details.
--- NOTE | 2021-03-22 19:04 | ANE.PACU2 ---
Inpatient post-anesthesia follow up: Airway intact: Yes Vital signs: Temperature 97.3 F Pulse Rate 61 Respiratory Rate 18 Blood Pressure 106/47 Pulse Oximetry 100 Oxygen Delivery Me thod Room Air Oxygen Flow Rate 8 Fraction of Inspir ed Oxygen Hydration adequate: Yes Nausea and vomiting: No Pain level: 2 Mental status: Baseline
== END 2021-03-22 12:05 | disposition home or self-care (01) ==
PROVIDERS: Surgery; PCP Family Medicine; Visit Provider Obstetrics & Gynecology
PROC: (CPT 58700; principal; 2021-03-22 08:15)
PROC: 0DTJ4ZZ Resection of Appendix, Percutaneous Endoscopic Approach (ICD-10-PCS; CPT 44970; 2021-03-22 08:15)
DX: Z30.2 Encounter for sterilization (principal); K36 Other appendicitis
CPT/HCPCS: 44970; 58661; 84703; 85025; 86850; 86900; 88302; 88304; 96365; J2543; J3010; J3490; J7030

== ENCOUNTER 2021-08-31 14:00 | Emergency (ER) | payer BC, MEDICAID, SELFPAY ==
[2021-08-31 14:22] VITALS: BP 117/84; PULSE 76; RESP 18; TEMP 36.6; O2SAT 98; BMI 25.6
--- NOTE | 2021-08-31 15:36 | XR_ITS ---
WS: [id number] PORTABLE CHEST HISTORY: covid COMPARISON: 12/22/2019 Lungs are clear and well expanded. No pleural effusion or pneumothorax. Cardiac size: Normal. Mediastinum/Aorta: Normal mediastinum. No osseous abnormality seen. XR/XR chest 1V portable [id number] IMPRESSION: Unremarkable portable chest.
[2021-08-31 16:25] VITALS: PULSE 85; RESP 16; O2SAT 95
== END 2021-08-31 17:03 ==
LOC: ER 14:05
PROVIDERS: Emergency Provider Family Medicine; PCP Family Medicine
DX: Z53.21 Procedure and treatment not carried out due to patient leaving prior to being seen by health care provider (principal)
CPT/HCPCS: 71045

== ENCOUNTER → 2022-04-24 10:24 | Outpatient (BNVA) | payer BC, MEDICAID, SELFPAY | PROVIDERS: PCP Family Medicine; Visit Provider Orthopaedic Surgery | DX: M25.512 Pain in left shoulder (principal) | CPT/HCPCS: 73030 ==

== ENCOUNTER 2022-06-13 11:21 | Emergency (ER) | payer BC, MEDICAID, SELFPAY ==
[2022-06-13 11:39] VITALS: BP 112/72; PULSE 117; RESP 16; TEMP 37.7; O2SAT 97
--- NOTE | 2022-06-13 12:19 | W.ED.NAVMDI ---
HPI - Nausea/Vomiting/Diarrhea General: Chief complaint: Nausea/Vomiting/Diarrhea Stated complaint: N/V Fever Time Seen by Provider: 06/13/22 11:43 Source: patient Mode of arrival: ambulatory History of Present Illness: 26-year-old female presents emergency room fever nausea vomiting with a temp up to 103 began yesterday nonproductive cough generalized aches and headaches. No diarrhea. No hematemesis or coffee-ground emesis low-grade temp on arrival here at 99 8. No dysuria urgency or frequency. MD elicited complaint: nausea and vomiting Onset (ago): day(s) (1) Description of vomiting: food contents and watery Associated nausea: Yes Associated abdominal pain: No Exacerbating factors: none Relieving factors: none Context: sick contacts Associated symtoms: Reports cough, fatigue, fevers/chills, headache(s), anorexia, malaise, myalgias, nausea, short of breath and weakness; Denies anxiety, bloating, change in vision, chest pain, diaphoresis, decreased urine output, dizziness, dysuria, epistaxis, fecal incontinence, numbness, palpitations, rash, syncope, tenesmus or tinnitus Review of Systems Const: Reports: fever(s), chills, fatigue and malaise; Denies: diaphoresis Eyes: Denies: change in vision ENMT: Denies: tinnitus or epistaxis Card: Denies: chest pain, palpitations or syncope Resp: Denies: dyspnea, productive cough or non-productive cough GI: Reports: nausea; Denies: bloating or fecal incontinence : Denies: difficulty voiding, dysuria, urinary frequency or urinary urgency Musc: Denies: neck pain or back pain Skin/Breast: Denies: rash or pruritus Neuro: Reports: headache(s); Denies: dizziness Psych: Denies: anxiety PFSH ED PFSH: Medical History No pertinent past medical history Denies diabetes, asthma, hypertension, seizures, DVT/PE PCP: Dr. Fall Psych[facility] care Surgical History S/P appendectomy 03/22/2021--laparoscopic appendectomy performed by Dr. Garzon at time of sterilization as appendix was chronically inflamed and thickened. Pathology showed acute severe appendicitis with serositis. No malignancy S/P wisdom tooth extraction Status post tubal ligation 03/22/2021---laparoscopic bilateral total salpingectomy for sterilization performed by Dr. Lane at [facility] [place], [place]. Pathology showed bilateral normal fallopian tubes without malignancy Family History Denies family history of Colon cancer Ovarian cancer Diabetes Heart disease Hyperlipidemia Breast cancer Hypertension Uterine cancer Thyroid condition Stroke Social History Smoking and tobacco status: never smoked Female Reproductive History: Date of last menstrual period: 06/13/22 Physical Exam Const: GENERAL APPEARANCE: cooperative and comfortable ORIENTATION/CONSCIOUSNESS: Yes awake, Yes oriented to person, Yes oriented to place and Yes oriented to time HENMT: COMMON NORMALS: normocephalic, atraumatic and hearing grossly normal bilaterally HEAD & SCALP: normocephalic and atraumatic Resp: COMMON NORMALS: normal respiratory effort, No retractions, No use of accessory muscles and clear to auscultation bilaterally AUSCULTATION: clear to auscultation bilaterally Cardio: COMMON NORMALS: regular rhythm and No murmurs present (Cardio) RATE: tachycardic RHYTHM: regular rhythm GI: COMMON NORMALS: Soft to palpation and No hepatosplenomegaly present AUSCULTATION: Yes normoactive bowel sounds PALPATION: Yes Soft to palpation, No Tenderness to palpation present (GI), No Guarding due to palpation present (GI) and Yes No hepatosplenomegaly present Extremity: COMMON NORMALS: normal to inspection, capillary refill normal, no clubbing, cyanosis or edema, no calf tenderness and no pedal edema Neuro: SENSORIUM/ORIENTATION: Yes oriented to person, Yes oriented to place and Yes oriented to time Skin: COMMON NORMALS: no rashes or lesions noted GENERAL SKIN EXAM: no rashes or lesions noted Course Vital Signs: Vital signs: Vital Signs Temperature 99.8 F H 06/13/22 11:39 Pulse Rate 95 06/13/22 14:49 Respiratory Rate 16 06/13/22 14:49 Blood Pressure 112/68 06/13/22 14:49 Pulse Oximetry 97 06/13/22 14:49 Oxygen Delivery Me thod 06/13/22 11:39 MDM - Nausea/Vomiting/Diarrhea Medical Decision Making Patient within the window for antivirals discussed risk-benefit she wishes to proceed. Discharged home on Tamiflu Tylenol and ibuprofen supportive cares given promethazine for nausea and vomiting push oral fluids. Medical Records I reviewed the patient's medical records. Lab Data I reviewed the patient's lab results. 06/13/22 12:25 06/13/22 12:25 Laboratory Results WBC 7.5 10^3/uL (4.0-10.0) 06/13/22 12:25 RBC 4.48 10^6/uL (4.1-5.3) 06/13/22 12:25 Hgb 14.0 g/dL (11.5-15.3) 06/13/22 12:25 Hct 41.2 % (37.0-47.0) 06/13/22 12: MCV 92.0 fl (81-99) 06/13/22 12:25 MCH 31.3 pg (28.0-34.0) 06/13/22 12:25 MCHC 34.0 g/dL (30.0-36.0) 06/13/22 12:25 RDW 11.6 % (12.1-15.1) L 06/13/22 12:25 Plt Count 324 10^3/cmm (130-400) 06/13/22 12:25 MPV 10.0 fL (7.4-10.4) 06/13/22 12:25 Neut % (Auto) 69.7 % 06/13/22 12:25 Lymph % (Auto) 19.8 % 06/13/22 12:25 [place] % (Auto) 9.9 % 06/13/22 12:25 Eos % (Auto) 0.0 % 06/13/22 12:25 Baso % (Auto) 0.3 % 06/13/22 12:25 Neut # (Auto) 5.23 10^3/uL (1.8-7.7) 06/13/22 12:25 Lymph # (Auto) 1.5 10^3/uL (0.8-4.8) 06/13/22 12:25 [place] # (Auto) 0.7 10^3/uL (0.2-0.9) 06/13/22 12:25 Eos # (Auto) 0.0 10^3/uL (0.0-0.8) 06/13/22 12:25 Baso # (Auto) 0.0 10^3/uL (0.0-0.1) 06/13/22 12:25 Nucleated RBC % (auto) 0 % 06/13/22 12:25 Nucleated RBCs # 0.0 /100WBC 06/13/22 12:25 Sodium 134 mmol/L (136-145) L 06/13/22 12:25 Potassium 3.7 mmol/L (3.5-5.1) 06/13/22 12:25 Chloride 98 mmol/L (98-107) 06/13/22 12:25 Carbon Dioxide 23 mmol/L (22-29) 06/13/22 12:25 Anion Gap 16.7 (5-19) 06/13/22 12:25 BUN 7 mg/dL (6-20) 06/13/22 12:25 Creatinine 0.7 mg/dL (0.5-0.9) 06/13/22 12:25 GFR Calculation 102.8 mL/min (90-130) 06/13/22 12:25 Glucose 92 mg/dL (65-115) 06/13/22 12:25 Calculated Osmolality 276 mOsm/kg (285-295) L 06/13/22 12:25 Calcium 9.5 mg/dL (8.5-10.5) 06/13/22 12:25 Total Bilirubin 0.4 mg/dL (0.15-1.2) 06/13/22 12:25 AST 16 U/L (0-32) 06/13/22 12:25 ALT 7 U/L (0-33) 06/13/22 12:25 Alkaline Phosphatase 82 U/L (35-105) 06/13/22 12:25 Total Protein 7.7 g/dL (6.6-8.7) 06/13/22 12:25 Albumin 4.6 g/dL (3.5-5.2) 06/13/22 12:25 Globulin 3.1 g/dL (1.3-4.6) 06/13/22 12:25 HCG, Qual Negative (Negative) 06/13/22 12:25 Urine Color Yellow (Yellow) 06/13/22 Unknown Urine Appearance Hazy (CLEAR) A 06/13/22 Unknown Urine pH 7 (5-7) 06/13/22 Unknown Ur Specific [place] 1.005 (1.005-1.030) 06/13/22 Unknown Urine Protein Neg (Negative) 06/13/22 Unknown Urine Glucose (UA) Norm (Normal) 06/13/22 Unknown Urine Ketones 1+ (Negative) H 06/13/22 Unknown Urine Blood 2+ (Negative) H 06/13/22 Unknown Urine Nitrate Negative (Negative) 06/13/22 Unknown Urine Bilirubin Neg (Negative) 06/13/22 Unknown Urine Urobilinogen Neg mg/dL (Negative) 06/13/22 Unknown Ur Leukocyte Esterase Negative (Negative) 06/13/22 Unknown Urine RBC 0-4 /hpf (0-2) H 06/13/22 Unknown Urine WBC None /hpf (0-5) 06/13/22 Unknown Ur Squamous Epith Cells 0-4 /hpf (0-5) H 06/13/22 Unknown Amorphous Sediment Not Reportable 06/13/22 Unknown Urine Bacteria None /hpf (NONE) 06/13/22 Unknown Influenza Type A Ag positive (Negative) 06/13/22 12:26 Influenza Type B Ag negative (Negative) 06/13/22 12:26 Discharge Plan Discharge Patient Disposition: Home Clinical Impression: Influenza A Condition: Stable Prescriptions: New Tamiflu 75 mg capsule 75 mg PO BID 5 Days Qty: 10 0RF promethazine 25 mg tablet 25 mg PO Q6H PRN (Reason: nausea and vomiting) Qty: 20 0RF Discharge Orders: Discharge ED (Routine); Ordered 06/13/22 Ordered By: Juan Carlos Rooney Referrals: Du Fall MD [Primary Care Provider] - Discharge Diet: Usual diet Discharge Activity: Increase activity as tolerated Patient Instructions: Opioid Safety, Pain Management Coding Level of Care Code 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
[2022-06-13 12:30] VITALS: PULSE 101; RESP 20; O2SAT 97
[2022-06-13] MEDS: acetaminophen 325 mg Tablet 650 MG PO (12:51)
[2022-06-13] MEDS: sodium chloride 0.9% 1,000 ML 999 ML IV (12:51)
[2022-06-13 12:55] LABS: Basophils % 0.3 %; Hematocrit 41.2 % (37.0-47.0); Lymphocytes # 1.5 10^3/uL (0.8-4.8); Lymphocytes % 19.8 %; Mean Corpuscular Hemoglobin 31.3 pg (28.0-34.0); Monocytes # 0.7 10^3/uL (0.2-0.9); Monocytes % 9.9 %; Neutrophils # 5.23 10^3/uL (1.8-7.7); Neutrophils % 69.7 %; Nucleated Red Blood Cells % 0 %; Platelet Count 324 10^3/cmm (130-400); Red Blood Count 4.48 10^6/uL (4.1-5.3); Red Cell Distribution Width 11.6 % (12.1-15.1); White Blood Count 7.5 10^3/uL (4.0-10.0)
[2022-06-13 13:02] LABS: HCG, Serum Qual Negative (Negative)
[2022-06-13 13:06] LABS: Add Urine Microscopic? YES; Bilirubin Urine Neg (Negative); Blood Urine 2+ (Negative); Glucose Urine UA Norm (Normal); Ketones Urine 1+ (Negative); Leukocyte Esterase Urine Negative (Negative); Nitrate Urine Negative (Negative); Protein Urine Neg (Negative); Specific Gravity, Urine 1.005 (1.005-1.030); Urine Appearance Hazy (CLEAR); Urine Color Yellow (Yellow); Urobilinogen Urine Neg (Negative); pH Urine 7 (5-7)
[2022-06-13 13:08] LABS: Influenza A by IFA positive (Negative); Influenza B by IFA negative (Negative)
[2022-06-13 13:10] LABS: Alanine Aminotransferase 7 U/L (0-33); Albumin Level 4.6 g/dL (3.5-5.2); Alkaline Phosphatase 82 U/L (35-105); Anion Gap 16.7 (5-19); Aspartate Amino Transferase 16 U/L (0-32); Blood Urea Nitrogen 7 mg/dL (6-20); Calcium 9.5 mg/dL (8.5-10.5); Carbon Dioxide 23 mmol/L (22-29); Chloride 98 mmol/L (98-107); Globulin 3.1 g/dL (1.3-4.6); Glomerular Filtration Rate 102.8 mL/min (90-130); Glucose 92 mg/dL (65-115); Osmolality Calculated 276 mOsm/kg (285-295); Potassium 3.7 mmol/L (3.5-5.1); Sodium 134 mmol/L (136-145); Total Bilirubin 0.4 mg/dL (0.15-1.2); Total Protein 7.7 g/dL (6.6-8.7)
[2022-06-13 13:43] VITALS: PULSE 92; RESP 23; O2SAT 95
[2022-06-13 13:52] LABS: RBC Urine 0-4 /hpf (0-2); Squamous Epithelial Cell Urine 0-4 /hpf (0-5)
[2022-06-13 13:53] LABS: Add Urine Culture? No
[2022-06-13 14:30] VITALS: BP 110/62; PULSE 96; RESP 23; O2SAT 97
[2022-06-13 14:49] VITALS: BP 112/68; PULSE 95; RESP 16; O2SAT 97
== END 2022-06-13 14:50 | disposition home or self-care (01) ==
PROVIDERS: Emergency Provider Family Medicine; PCP Family Medicine
DX: J10.1 Influenza due to other identified influenza virus with other respiratory manifestations (principal)
CPT/HCPCS: 80053; 81001; 84703; 85025; 87804; 96360; 99284; J7030

== ENCOUNTER 2024-04-10 09:25 | Emergency (ER) | payer BC, MEDICAID, SELFPAY ==
[2024-04-10 10:36] VITALS: BP 111/71; PULSE 74; RESP 16; TEMP 37.1; O2SAT 98; BMI 27.4
[2024-04-10 11:11] VITALS: BP 128/104; PULSE 71; O2SAT 100
[2024-04-10 11:37] LABS: HCG Qualitative Urine. Negative (Negative)
[2024-04-10 11:39] LABS: Bilirubin Urine Negative (Negative); Blood Urine Negative (Negative); Glucose Urine UA Negative (Normal); Ketones Urine Negative (Negative); Leukocyte Esterase Urine 2+ (Negative); Nitrate Urine Negative (Negative); Protein Urine Negative (Negative); Specific Gravity, Urine 1.018 (1.005-1.030); Urine Appearance Clear (CLEAR); Urine Color Yellow (Yellow); Urobilinogen Urine 0.2 mg/dL (Negative)
[2024-04-10 11:41] LABS: Add Urine Microscopic? YES; Bacteria Urine Trace /hpf; RBC Urine 0-2 /hpf (0-2)
--- NOTE | 2024-04-10 11:50 | USR_ITS ---
PROCEDURE INFORMATION: Exam: US Pelvis, Transvaginal, Non-Obstetric Exam date and time: 04/10/2024 12:36 PM Age: 28 years old Clinical indication: Pelvic pain; Prior surgery; Surgery date: 6+ months; Surgery type: Unsure of dates. Tubal ligation; Additional info: Pelvic pain neg hcg TECHNIQUE: Imaging protocol: Real-time transvaginal pelvic (non-obstetric) ultrasound with image documentation. Transvaginal imaging was used for better evaluation of the endometrium, adnexa, and/or cervix. COMPARISON: US pelv w/transvag [id number] 10/21/2019 4:10 PM FINDINGS: Uterus: The uterus is normal in echotexture without focal lesion/fibroid identified. Uterus measures approximately 5 x 3.9 x 7.7 cm. Endometrial stripe thickness is 1.1 cm. Right ovary/adnexa: The right ovary measures 2.3 x 1.8 x 2.2 cm, corresponding with a volume of approximately 4.9 cc. No solid or cystic right ovarian mass is seen. Normal right ovarian Doppler flow. No evidence of right ovarian torsion. Left ovary/adnexa: The left ovary measures 3 x 2 x 2.6 cm, corresponding with a volume of approximately 8.3 cc. Within the left ovary there is a thick-walled complex cyst or cystic mass measuring 2.4 cm in size with peripheral hypervascularity and suggestion of internal solid vascular components. Normal left ovarian Doppler flow. No evidence of left ovarian torsion. Urinary bladder: Urinary bladder is not evaluated. Intraperitoneal space: Minimal free fluid in the pelvis. US/US transvaginal [id number] IMPRESSION: 1. Thick-walled complex cystic vascular mass associated with the left ovary measuring approximately 2.4 cm in size. Although this could represent a thick corpus luteal cyst, findings are concerning for possible ovarian mass. Recommend COMBINATION MAN consultation and pelvic MRI with contrast to help differentiate. 2. Normal Doppler bilaterally. No evidence of torsion.
--- NOTE | 2024-04-10 11:52 | W.ED.ABDPA2 ---
HPI - Abdominal Pain General: Chief Complaint: Abdominal Pain Stated Complaint: Lower AB pain Time Seen by Provider: 04/10/24 11:15 Source: patient Mode of arrival: ambulatory Limitations: no limitations History of Present Illness: This patient made aware to the emergency department because of persistent pelvic pain. He states the pain began approximately Friday or thereab and for the first few days was just a dull discomfort but over the last 2 days her pain is increased becoming more of an annoyance. She states that when she puts pressure in the abdomen such as sitting upright or moving around the symptoms worsen. She denies any fevers or chills she has had no vomiting but has had some mild nausea. She states the symptoms do not seem to change with bowel movements and/or urinating. She denies any urinary frequency or hematuria. 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 She has had a previous bilateral tubal ligation as well as an appendectomy. No history of pelvic infections. She denies any different unusual or odorous vaginal discharge. Related Data Previous Rx's Medication Instructions Recorded promethazine 25 mg tablet 25 mg PO Q6H PRN nausea and 06/13/22 vomiting #20 tabs cock up wrist splint #1 ea 12/03/22 doxycycline hyclate 100 mg tablet 100 mg PO BID 14 days #28 tabs 04/10/24 hydrocodone 5 mg-acetaminophen 325 1 tab PO BID PRN pain #10 tabs 04/10/24 mg tablet Allergies Allergy/AdvReac Type Severity Reaction Status Date / Time No Known Allergies Allergy Verified 04/10/24 10:41 [facility] ED PFSH: Medical History No pertinent past medical history Denies diabetes, asthma, hypertension, seizures, DVT/PE PCP: Dr. Fall Surgical History S/P appendectomy 03/22/2021--laparoscopic appendectomy performed by Dr. Garzon at time of sterilization as appendix was chronically inflamed and thickened. Pathology showed acute severe appendicitis with serositis. No malignancy S/P wisdom tooth extraction Status post tubal ligation 03/22/2021---laparoscopic bilateral total salpingectomy for sterilization performed by Dr. Lane at [facility] [place]. Pathology showed bilateral normal fallopian tubes without malignancy Family History Denies family history of Colon cancer Ovarian cancer Diabetes Heart disease Hyperlipidemia Breast cancer Hypertension Uterine cancer Thyroid condition Stroke Social History Smoking and tobacco/nicotine status: never used tobacco/nicotine Physical Exam Narrative: EXAM NARRATIVE: Patient lying comfortably on the examining cart without any signs of distress. She answers questions appropriately. Const: COMMON NORMALS: no acute distress and average body habitus GENERAL APPEARANCE: cooperative and comfortable HENMT: COMMON NORMALS: Normal nasal mucous membranes and turbinates present and moist oral mucous membranes NOSE: Normal nasal mucous membranes and turbinates present Eye: COMMON NORMALS: Equal, round and reactive pupils present, EOMs intact bilaterally and conjunctivae normal CONJUNCTIVA: Yes conjunctivae normal PUPIL: Yes Equal, round and reactive pupils present Neck/C-Spine: COMMON NORMALS: full ROM and no lymphadenopathy Resp: COMMON NORMALS: normal respiratory effort, No use of accessory muscles and clear to auscultation bilaterally AUSCULTATION: clear to auscultation bilaterally Cardio: COMMON NORMALS: regular rate, regular rhythm, No murmurs present (Cardio) and Peripheral pulses 2+ throughout RATE: regular rate RHYTHM: regular rhythm PERIPHERAL PULSES: Peripheral pulses 2+ throughout GI: OTHER: Abdominal examination reveals no tenderness in the upper quadrants. She does have tenderness bilaterally in the left and right lower quadrants into the pelvic brim. No peritoneal signs but her symptoms are exacerbated by hip flexion twisting turning of trunk etc. : COMMON NORMALS: Yes no CVA tenderness BLADDER/KIDNEY EXAM: Yes no CVA tenderness SPECULUM EXAM - CERVIX: Yes Cervical os closed and Yes Abnormal cervical discharge present yellow BIMANUAL EXAM - VAGINA & UTERUS: Yes cervical motion tenderness BIMANUAL EXAM - ADNEXA, OTHER: Yes tender bilaterally Back/Pelvis: COMMON NORMALS: no CVA tenderness, thoracic and lumbar spine normal to inspection, no thoracic nor lumbar tenderness and thoraco-lumbar ROM normal Extremity: COMMON NORMALS: normal to inspection, full ROM and no pedal edema Neuro: COMMON NORMALS: moves all extremities, no focal motor deficits and no sensory deficits noted Psych: COMMON NORMALS: mental status grossly normal Skin: COMMON NORMALS: no rashes or lesions noted, turgor normal and no jaundice GENERAL SKIN EXAM: no rashes or lesions noted and turgor normal Course Reevaluation(s): Reevaluation #1: Prolonged ER stay due to delayed ultrasound reading by outside radiology group Time: 15:15 Consultations: Consultation #1: Discussed with Dr. Alejandro who will provide follow-up Time: 16:00 Vital Signs: Vital signs: Vital Signs Temperature 98.7 F 04/10/24 10:36 Pulse Rate 94 04/10/24 16:51 Respiratory Rate 16 04/10/24 10:36 Blood Pressure 112/86 04/10/24 16:51 Pulse Oximetry 90 04/10/24 16:51 Oxygen Delivery Me thod Room Air 04/10/24 10:36 MDM - Abdominal Pain Medical Decision Making This patient presented as noted in the history of present illness with progressive pelvic and lower abdominal pain. Prior appendectomy as well as tubal ligation. Differential included possible urinary tract infection, ovarian cyst, ectopic , pelvic inflammatory disease etc. Laboratories urinalysis were obtained as well as ultrasound of the pelvis. Ultrasound of the pelvis eventually was interpreted by radiology and noted to have a left ovarian cyst of 2.5 cm in size but good blood flow to both ovaries with minimal or physiologic amount of free fluid. hCG was negative laboratories were were unremarkable other than she did have some abnormality in urinary sediment but not significant. Pelvic examination was then completed which revealed a small amount of yellowish cervical discharge. Bimanual examination also revealed adnexal tenderness to palpation with some cervical motion tenderness. Certainly no peritoneal signs or other worrisome findings today. Given the her current clinical picture certainly empiric treatment for PID is appropriate at this time. Will go ahead and initiate that with ceftriaxone followed by doxycycline and DIRECTOR LOSS PREVENTION will follow her up this coming week. This was reviewed and discussed with the patient who voiced understanding. Lab Data I reviewed the patient's lab results. 04/10/24 11:58 04/10/24 11:58 Labs/Radiology: Radiology Impressions Transvaginal US 04/10/24 11:50 IMPRESSION: 1. Thick-walled complex cystic vascular mass associated with the left ovary measuring approximately 2.4 cm in size. Although this could represent a thick corpus luteal cyst, findings are concerning for possible ovarian mass. Recommend CARDBOARD CUTTER consultation and pelvic MRI with contrast to help differentiate. 2. Normal Doppler bilaterally. No evidence of torsion. Laboratory Results WBC 6.32 10^3/uL (3.29-11.43) 04/10/24 11:58 RBC 4.24 10^6/uL (3.85-5.65) 04/10/24 11:58 Hgb 13.40 g/dL (11.27-16.99) 04/10/24 11:58 Hct 39.7 % (36-47) 04/10/24 11:58 MCV 93.6 fl (85-98) 04/10/24 11:58 MCH 31.6 pg (27-33) 04/10/24 11:58 MCHC 33.8 g/dL (30-55) 04/10/24 11:58 RDW 11.6 % (12.1-15.1) L 04/10/24 11:58 Plt Count 310 10^3/cmm (157-399) 04/10/24 11:58 MPV 9.3 fL (7.4-10.4) 04/10/24 11:58 Neut % (Auto) 69.0 % 04/10/24 11:58 Lymph % (Auto) 21.5 % 04/10/24 11:58 [place] % (Auto) 7.3 % 04/10/24 11:58 Eos % (Auto) 1.3 % 04/10/24 11:58 Baso % (Auto) 0.6 % 04/10/24 11:58 Neut # (Auto) 4.36 10^3/uL (1.8-7.7) 04/10/24 11:58 Lymph # (Auto) 1.4 10^3/uL (0.8-4.8) 04/10/24 11:58 [place] # (Auto) 0.5 10^3/uL (0.2-0.9) 04/10/24 11:58 Eos # (Auto) 0.1 10^3/uL (0.0-0.8) 04/10/24 11:58 Baso # (Auto) 0.0 10^3/uL (0.0-0.1) 04/10/24 11:58 Nucleated RBC % (auto) 0 % 04/10/24 11:58 Nucleated RBCs # 0.0 /100WBC 04/10/24 11:58 Sodium 139 mmol/L (136-145) 04/10/24 11:58 Potassium 4.1 mmol/L (3.5-5.1) 04/10/24 11:58 Chloride 103 mmol/L (98-107) 04/10/24 11:58 Carbon Dioxide 25 mmol/L (22-29) 04/10/24 11:58 Anion Gap 15.1 (5-19) 04/10/24 11:58 BUN 15 mg/dL (6-20) 04/10/24 11:58 Creatinine 0.7 mg/dL (0.5-0.9) 04/10/24 11:58 GFR Calculation 101.1 mL/min (90-130) 04/10/24 11:58 Glucose 85 mg/dL (65-115) 04/10/24 11:58 Calculated Osmolality 288 mOsm/kg (285-295) 04/10/24 11:58 Calcium 9.3 mg/dL (8.5-10.5) 04/10/24 11:58 Total Bilirubin 0.4 mg/dL (0.15-1.2) 04/10/24 11:58 AST 15 U/L (0-32) 04/10/24 11:58 ALT 9 U/L (0-33) 04/10/24 11:58 Alkaline Phosphatase 63 U/L (35-105) 04/10/24 11:58 Total Protein 7.4 g/dL (6.6-8.7) 04/10/24 11:58 Albumin 4.5 g/dL (3.5-5.2) 04/10/24 11:58 Globulin 2.9 g/dL (1.3-4.6) 04/10/24 11:58 HCG, Qual Negative (Negative) 04/10/24 11:26 Urine Color Yellow (Yellow) 04/10/24 11:26 Urine Appearance Clear (CLEAR) 04/10/24 11:26 Urine pH 7.0 (5-7) 04/10/24 11:26 Ur Specific [place] 1.018 (1.005-1.030) 04/10/24 11:26 Urine Protein Negative (Negative) 04/10/24 11:26 Urine Glucose (UA) Negative (Normal) 04/10/24 11:26 Urine Ketones Negative (Negative) 04/10/24 11:26 Urine Blood Negative (Negative) 04/10/24 11:26 Urine Nitrate Negative (Negative) 04/10/24 11:26 Urine Bilirubin Negative (Negative) 04/10/24 11:26 Urine Urobilinogen 0.2 mg/dL (Negative) 04/10/24 11:26 Ur Leukocyte Esterase 2+ (Negative) A 04/10/24 11:26 Urine RBC 0-2 /hpf (0-2) 04/10/24 11:26 Urine WBC 6-10 /hpf (0-5) 04/10/24 11:26 Ur Squamous Epith Cells 6-10 /hpf (0-5) 04/10/24 11:26 Amorphous Sediment Not Reportable 04/10/24 11:26 Urine Bacteria Trace /hpf (NONE) 04/10/24 11:26 Hyaline Casts 0.40 /lpf 04/10/24 11:26 All radiology interpretation(s) finalized by discharge Discharge Plan Discharge Patient Disposition: Home Clinical Impression: Acute pelvic inflammatory disease (PID) Ovarian cyst Qualifiers: Laterality: left Qualified Code(s): N83.202 - Unspecified ovarian cyst, left side Condition: Stable Prescriptions: New doxycycline hyclate 100 mg tablet 100 mg PO BID 14 Days Qty: 28 0RF hydrocodone-acetaminophen 5-325 mg tablet 1 tab PO BID PRN (Reason: pain) Qty: 10 0RF No Action (DME) cock up wrist splint See Rx Instructions .Route .MEDSUPPLY Qty: 1 0RF Rx Instructions: As directed promethazine 25 mg tablet 25 mg PO Q6H PRN (Reason: nausea and vomiting) Qty: 20 0RF Discharge Orders: Discharge ED (Routine); Ordered 04/10/24 Ordered By: Flavio Donald Referrals: Riki Alejandro MD [Physician] - 4-7 days (ED follow up) Du Fall MD [Primary Care Provider] - Discharge Diet: Usual diet Discharge Activity: Increase activity as tolerated Patient Instructions: Pelvic Inflammatory Disease (DC), Opioid Safety, Pain Management Activity Restrictions/Additional Instructions: As we discussed we think you likely have a inflammation and infection of your pelvis that is causing your pain. You have been given antibiotics in the emergency department as well as a prescription that you should begin and take for the next 14 days. We have also made arrangements for you to see Dr. Alejandro in follow-up in the next few days early this coming week. He will be contacted with an appointment time for this evaluation. He also have an ovarian cyst which will be followed up by Dr. Alejandro as well. If you develop fevers increasing pain or any other concerns or discomfort you are welcome to return to the emergency department for reevaluation. Coding Level of Care Code ED Auto Air Conditioning Apprentice for Becky Ca
[2024-04-10 12:04] LABS: Basophils % 0.6 %; Eosinophils # 0.1 10^3/uL (0.0-0.8); Eosinophils % 1.3 %; Hematocrit 39.7 % (36-47); Lymphocytes # 1.4 10^3/uL (0.8-4.8); Lymphocytes % 21.5 %; Mean Corpuscular HGB Conc 33.8 g/dL (30-55); Mean Corpuscular Hemoglobin 31.6 pg (27-33); Mean Corpuscular Volume 93.6 fl (85-98); Mean Platelet Volume 9.3 fL (7.4-10.4); Monocytes # 0.5 10^3/uL (0.2-0.9); Monocytes % 7.3 %; Neutrophils # 4.36 10^3/uL (1.8-7.7); Nucleated Red Blood Cells % 0 %; Platelet Count 310 10^3/cmm (157-399); Red Blood Count 4.24 10^6/uL (3.85-5.65); Red Cell Distribution Width 11.6 % (12.1-15.1); White Blood Count 6.32 10^3/uL (3.29-11.43)
[2024-04-10 12:25] LABS: Alanine Aminotransferase 9 U/L (0-33); Albumin Level 4.5 g/dL (3.5-5.2); Alkaline Phosphatase 63 U/L (35-105); Anion Gap 15.1 (5-19); Aspartate Amino Transferase 15 U/L (0-32); Blood Urea Nitrogen 15 mg/dL (6-20); Calcium 9.3 mg/dL (8.5-10.5); Carbon Dioxide 25 mmol/L (22-29); Chloride 103 mmol/L (98-107); Creatinine Clr Calc Pharmacy 110.1192; Globulin 2.9 g/dL (1.3-4.6); Glomerular Filtration Rate 101.1 mL/min (90-130); Glucose 85 mg/dL (65-115); Osmolality Calculated 288 mOsm/kg (285-295); Potassium 4.1 mmol/L (3.5-5.1); Sodium 139 mmol/L (136-145); Total Bilirubin 0.4 mg/dL (0.15-1.2); Total Protein 7.4 g/dL (6.6-8.7)
[2024-04-10 13:11] VITALS: PULSE 81; O2SAT 98
[2024-04-10 14:29] VITALS: BP 108/64; PULSE 83; O2SAT 94
[2024-04-10] MEDS: cefTRIAXone 500 MG in water for injection-sterile 1 ML 999 MG IM (16:31)
[2024-04-10 16:51] VITALS: BP 112/86; PULSE 94; O2SAT 90
[2024-04-12 18:26] LABS: Chlamydia Trachomatis RNA TMA NOT DETECTED (NOT DETECTED); Neisseria Gonorrhoeae RNA, TMA NOT DETECTED (NOT DETECTED)
== END 2024-04-10 16:53 | disposition home or self-care (01) ==
PROVIDERS: Emergency Provider Emergency Medicine; PCP Family Medicine
DX: N83.202 Unspecified ovarian cyst, left side (principal)
CPT/HCPCS: 36415; 76830; 80053; 81001; 81025; 85025; 87491; 87591; 96372; 99284; J0696

== ENCOUNTER → 2024-05-11 13:47 | Outpatient (BNVA) | payer BC, MEDICAID, SELFPAY | PROVIDERS: PCP Family Medicine; Visit Provider Obstetrics & Gynecology | DX: Z01.419 Encounter for gynecological examination (general) (routine) without abnormal findings (principal); R10.2 Pelvic and perineal pain | CPT/HCPCS: 84315; 87086; 87624 ==

== ENCOUNTER → 2024-05-31 12:25 | Outpatient (BNVA) | payer MEDICAID, SELFPAY | PROVIDERS: PCP Family Medicine; Visit Provider Obstetrics & Gynecology | DX: N83.202 Unspecified ovarian cyst, left side (principal); R10.2 Pelvic and perineal pain | CPT/HCPCS: 76830 ==

== ENCOUNTER 2024-06-19 00:27 | Emergency (ER) | payer SELFPAY ==
[2024-06-19 00:35] VITALS: BP 106/74; PULSE 88; RESP 17; TEMP 36.5; O2SAT 99; BMI 25.6
--- NOTE | 2024-06-19 00:52 | ED_ITS ---
HPI - Anxiety General: Chief Complaint: Anxiety Stated Complaint: anxiety attack Time Seen by Provider: 06/19/24 00:28 Source: patient Mode of arrival: ambulatory Limitations: no limitations History of Present Illness: Patient is a 28-year-old female presents to ED today via EMS following a panic attack. Patient states she has had several previous panic attacks in the past. She states this evening she was in deep conversation with a friend as well as her ex- who is now her boyfriend as they are trying to work things out . She states her friend said something that made her feel very anxious and this threw her into a panic attack. She states she was hyperventilating and almost passed out thus prompting her ex-boyfriend/ and friend to call EMS. EMS administered 1 mg ativan in route and upon arrival to the emergency department feels vastly improved. She has no physical complaints at this time apart from feeling slightly drowsy due to the Ativan. Vital signs are stable. MD complaint: anxiety Onset (ago): minute(s) Symptoms: dyspnea Severity: moderate Quality: improving (now resolved) Place: home History of similar episodes: Yes Provoking factors: emotional stress Associated symptoms: Reports no associated symptoms; Deny chest pain, confusion, fever(s), headache(s), palpitations, syncope or vomiting Related Data Previous Rx's Medication Instructions Recorded promethazine 25 mg tablet 25 mg PO Q6H PRN nausea and 06/13/22 vomiting #20 tabs cock up wrist splint #1 ea 12/03/22 Allergies Allergy/AdvReac Type Severity Reaction Status Date / Time No Known Allergies Allergy Verified 06/19/24 00:35 Review of Systems Const: Denies: fever(s) Eyes: Denies: change in vision Card: Denies: chest pain, palpitations, irregular heart rhythm or syncope Resp: Reports: dyspnea (resolved now); Denies: productive cough, non-productive cough or wheezing GI: Denies: abdominal pain or vomiting Musc: Denies: neck pain Neuro: Denies: headache(s), numbness in extremities, weakness in extremities, sensory changes, dizziness, confusion, behavioral changes, Slurred speech present or seizure-like activity [facility] ED PFSH: Medical History No pertinent past medical history Denies diabetes, asthma, hypertension, seizures, DVT/PE PCP: Dr. Fall Surgical History S/P appendectomy 03/22/2021--laparoscopic appendectomy performed by Dr. Garzon at time of sterilization as appendix was chronically inflamed and thickened. Pathology showed acute severe appendicitis with serositis. No malignancy Status post tubal ligation 03/22/2021---laparoscopic bilateral total salpingectomy for sterilization performed by Dr. Lane at [facility] [place]. Pathology showed bilateral normal fallopian tubes without malignancy S/P wisdom tooth extraction Family History Denies family history of Colon cancer Ovarian cancer Diabetes Heart disease Hyperlipidemia Breast cancer Hypertension Uterine cancer Thyroid disease Stroke Social History Smoking and tobacco/nicotine status: never used tobacco/nicotine Physical Exam Const: COMMON NORMALS: no acute distress, average body habitus, patient oriented x3, no limitations, healthy appearing, alert and well nourished GENERAL APPEARANCE: cooperative ORIENTATION/CONSCIOUSNESS: Yes awake, Yes oriented to person, Yes oriented to place and Yes oriented to time Eye: COMMON NORMALS: Equal, round and reactive pupils present and EOMs intact bilaterally GENERAL EYE: appearance normal, both eyes and all related structures and normal light reflex PUPIL: Yes Equal, round and reactive pupils present DIRECT OPHTHALMOSCOPY: Yes normal light reflex Neck/C-Spine: COMMON NORMALS: full ROM, no lymphadenopathy and no meningeal signs Resp: COMMON NORMALS: normal respiratory effort and clear to auscultation bilaterally AUSCULTATION: clear to auscultation bilaterally Cardio: COMMON NORMALS: regular rate and regular rhythm RATE: regular rate RHYTHM: regular rhythm Extremity: GENERAL: Yes normal exam except as noted Neuro: BOBO COMA SCALE: document GCS findings [place] coma scale eye opening: Spontaneous [place] coma scale verbal response: Orientated [place] coma scale motor response: Obey commands [place] coma scale total score: 15 COMMON NORMALS: patient oriented x3, CN's II-XII intact bilaterally, moves all extremities, no focal motor deficits and no sensory deficits noted SENSORIUM/ORIENTATION: Yes alert, Yes oriented to person, Yes oriented to place and Yes oriented to time MENINGEAL SIGNS: Yes no meningeal signs Course Vital Signs: Vital signs: Vital Signs Temperature 97.7 F 06/19/24 00:35 Pulse Rate 88 06/19/24 00:35 Respiratory Rate 17 06/19/24 00:35 Blood Pressure 106/74 06/19/24 00:35 Pulse Oximetry 99 06/19/24 00:35 Oxygen Delivery Me thod Room Air 06/19/24 00:35 MDM - Anxiety Medical Decision Making I do not see any indication for emergent workup based on her history and physical examination. She is feeling vastly improved after ativan given by EMS. She has had identical symptoms previously and history/ symptoms are consistent with panic attacks. Patient will be allowed discharge. She states she feels comfortable going home. Return to ED precautions given. Differential Diagnosis Likely hyperventilation, panic disorder and acute anxiety Medical Records I reviewed the patient's medical records. No radiology studies performed this visit Discharge Plan Discharge Patient Disposition: Home Clinical Impression: Panic attack Condition: Stable Prescriptions: No Action (DME) cock up wrist splint See Rx Instructions .Route .MEDSUPPLY Qty: 1 0RF Rx Instructions: As directed promethazine 25 mg tablet 25 mg PO Q6H PRN (Reason: nausea and vomiting) Qty: 20 0RF Discharge Orders: Discharge ED (Routine); Ordered 06/19/24 Ordered By: Minoo Maher Referrals: Du Fall MD [Primary Care Provider] - Patient Instructions: Anxiety (ED) Coding Level of Care Code ED Speech Correction Assistant for Becky Ca
[2024-06-19 01:05] VITALS: BP 137/79; PULSE 68; O2SAT 99
== END 2024-06-19 01:06 | disposition home or self-care (01) ==
PROVIDERS: Emergency Provider Physician Assistant; PCP Family Medicine
DX: F41.0 Panic disorder [episodic paroxysmal anxiety] (principal)
CPT/HCPCS: 99281

== ENCOUNTER 2024-07-12 17:09 | Emergency (ER) | payer SELFPAY ==
[2024-07-12 17:20] VITALS: BP 112/77; PULSE 79; RESP 16; TEMP 36.7; O2SAT 100
--- NOTE | 2024-07-12 19:35 | ED_ITS ---
HPI - Abdominal Pain 2 General: Chief Complaint: Abdominal Pain Stated Complaint: abd pain Time Seen by Provider: 07/12/24 19:14 Source: patient Mode of arrival: ambulatory Limitations: no limitations History of Present Illness: Patient is a 28-year-old female who presents to the emergency department complaining of abdominal pain for the past 5 months. Reports that she has seen OB for this pain and has had an ultrasound done on 04/10 as well as on 05/31 over this year. On the ultrasound in March, there was evidence of a left ovarian mass that though likely cystic could not rule out malignancy. However repeat ultrasound on May 31 showed that there was no longer likely swelling a ruptured ovarian cyst at that time. Patient states pain has been consistent for 5 months and that has been specifically worse over the past 24 hours. She has not seen her primary care for this or general surgery, has not had any CT imaging done. She is not reporting any urinary symptoms or diarrhea/constipation. Also is not having any vaginal bleeding or discharge, no fevers, no nausea or vomiting. Vitals are stable at this time. States initially she was taking ibuprofen early on, but that this did not seem to help at all so she has not been taking anything for her pain. She does not report any specific alleviating or exacerbating factors, stating the pain has been constant. Pain is primarily to the bilateral lower quadrants and is cramping, does not radiate anywhere else. Patient has history of tubal ligation as well as appendectomy. MD elicited complaint: abdominal pain Pertinent past history: other (Ovarian cysts) Onset (ago): month(s) (5) Pain Consistency: constant Location: RLQ and LLQ Quality: cramping Radiation: none Exacerbating factors: nothing Relieving factors: nothing Context: history of similar episodes Associated Symptoms: Denies bloating, change in stool character, chills, constipation, diarrhea, dysuria, fever(s), hematochezia, nausea and vomiting Treatments prior to arrival: NSAIDs Related Data Date of Last Menstrual Period: 06/14/24 Home Medications Medication Instructions Recorded Confirmed acetaminophen 325 mg capsule 325 mg PO QID PRN 07/05/24 07/05/24 Previous Rx's Medication Instructions Recorded cock up wrist splint #1 ea 12/03/22 Allergies Allergy/AdvReac Type Severity Reaction Status Date / Time No Known Allergies Allergy Verified 07/12/24 17:24 Review of Systems 2 General: Reports: 10 or more systems reviewed and unremarkable except in HPI and below Const: Denies: fever(s), chills, change in appetite, change in weight or diaphoresis ENMT: Denies: throat pain or hoarseness Card: Denies: chest pain, palpitations or lightheadedness Resp: Denies: dyspnea, productive cough or wheezing GI: Reports: abdominal pain; Denies: nausea, vomiting, diarrhea, constipation, bloating, change in stool character or hematochezia : Denies: flank pain, difficulty voiding, dysuria, urinary frequency or urinary urgency Musc: Denies: neck pain or back pain Skin/Breast: Denies: rash or new lesions Neuro: Denies: headache(s) or dizziness PFSH ED 2 PFSH: Medical History No pertinent past medical history Denies diabetes, asthma, hypertension, seizures, DVT/PE PCP: Dr. Fall Surgical History S/P appendectomy 03/22/2021--laparoscopic appendectomy performed by Dr. Garzon at time of sterilization as appendix was chronically inflamed and thickened. Pathology showed acute severe appendicitis with serositis. No malignancy Status post tubal ligation 03/22/2021---laparoscopic bilateral total salpingectomy for sterilization performed by Dr. Lane at [facility] [place] Pathology showed bilateral normal fallopian tubes without malignancy S/P wisdom tooth extraction Family History Denies family history of Colon cancer Ovarian cancer Diabetes Heart disease Hyperlipidemia Breast cancer Hypertension Uterine cancer Thyroid disease Stroke Social History Smoking and tobacco/nicotine status: never used tobacco/nicotine Female Reproductive History: Date of last menstrual period: 06/14/24 Physical Exam 2 Const: COMMON NORMALS: no acute distress, average body habitus, patient oriented x3, no limitations, healthy appearing, alert and well nourished G ENERAL APPEARANCE: cooperative and comfortable ORIENTATION/CONSCIOUSNESS: Yes awake HENMT: COMMON NORMALS: normocephalic, atraumatic, hearing grossly normal bilaterally and moist oral mucous membranes HEAD & SCALP: normocephalic and atraumatic Eye: COMMON NORMALS: Equal, round and reactive pupils present, EOMs intact bilaterally, conjunctivae normal and normal visual weathers by confrontation C ONJUNCTIVA: Yes conjunctivae normal PUPIL: Yes Equal, round and reactive pupils present Neck/C-Spine: COMMON NORMALS: full ROM, supple, no meningeal signs and no JVD Resp: COMMON NORMALS: normal respiratory effort, No retractions, No use of accessory muscles and clear to auscultation bilaterally AUSCULTATION: clear to auscultation bilaterally, no crackles, no rales, no rhonchi and no wheezes Cardio: COMMON NORMALS: no JVD, regular rate, regular rhythm, S1 normal heart sound present, S2 normal heart sound present, No gallops present (Cardio), No clicks present (Cardio), No murmurs present (Cardio), No rub (Cardio) and Peripheral pulses 2+ throughout RATE: regular rate RHYTHM: regular rhythm HEART SOUNDS: S1 normal heart sound present and S2 normal heart sound present PERIPHERAL PULSES: Peripheral pulses 2+ throughout GI: COMMON NORMALS: Normal to inspection, nondistended, normoactive bowel sounds present, Soft to palpation, No hepatosplenomegaly present and no masses AUSCULTATION: Yes normoactive bowel sounds PALPATION: Yes Soft to palpation, Yes Tenderness to palpation present (GI) (Mild diffuse abdominal tenderness to palpation ), No Guarding due to palpation present (GI), No Rigid due to palpation and Yes No hepatosplenomegaly present RECTAL EXAM: deferred : COMMON NORMALS: Yes no CVA tenderness BLADDER/KIDNEY EXAM: Yes no CVA tenderness Back/Pelvis: COMMON NORMALS: no CVA tenderness Extremity: COMMON NORMALS: normal to inspection and full ROM Neuro: COMMON NORMALS: patient oriented x3, moves all extremities, no focal motor deficits and no sensory deficits noted SENSORIUM/ORIENTATION: Yes alert MENINGEAL SIGNS: Yes no meningeal signs Psych: COMMON NORMALS: mental status grossly normal, cooperative and speech normal SPEECH: Yes normal speech Skin: COMMON NORMALS: no rashes or lesions noted GENERAL SKIN EXAM: no rashes or lesions noted Course 2 Vital Signs: Vital signs: Vital Signs Temperature 98.0 F 07/12/24 17:20 Pulse Rate 79 07/12/24 17:20 Respiratory Rate 72 H 07/12/24 19:54 Blood Pressure 126/75 07/12/24 19:54 Pulse Oximetry 100 07/12/24 19:54 Oxygen Delivery Me thod Room Air 07/12/24 19:54 MDM - Abdominal Pain Medical Decision Making Patient reporting 5 months of lower abdominal pain, her lab work and imaging today was all completely normal. Recently had ultrasound done showing improvement of the previously seen left ovarian cyst. This could potentially be musculoskeletal, so we will have the patient alternate ibuprofen and Tylenol. Will also have her follow-up with primary care for any further evaluation and return with any new or worsening. Vitals have been stable throughout ED course. Lab Data 07/12/24 20:02 07/12/24 20:02 Labs/Radiology: Radiology Impressions Abdomen/Pelvis CT 07/12/24 19:43 IMPRESSION: No definite acute intra-abdominal or intrapelvic process. Laboratory Results WBC 5.19 10^3/uL (3.29-11.43) 07/12/24 20:02 RBC 3.75 10^6/uL (3.85-5.65) L 07/12/24 20:02 Hgb 11.90 g/dL (11.27-16.99) 07/12/24 20:02 Hct 35.4 % (36-47) L 07/12/24 20:02 MCV 94.4 fl (85-98) 07/12/24 20:02 MCH 31.7 pg (27-33) 07/12/24 20:02 MCHC 33.6 g/dL (30-55) 07/12/24 20:02 RDW 12.9 % (12.1-15.1) 07/12/24 20:02 Plt Count 278 10^3/cmm (157-399) 07/12/24 20:02 MPV 9.4 fL (7.4-10.4) 07/12/24 20:02 Neut % (Auto) 54.7 % 07/12/24 20:02 Lymph % (Auto) 32.4 % 07/12/24 20:02 Gillespie % (Auto) 9.8 % 07/12/24 20:02 Eos % (Auto) 2.3 % 07/12/24 20:02 Baso % (Auto) 0.4 % 07/12/24 20:02 Neut # (Auto) 2.84 10^3/uL (1.8-7.7) 07/12/24 20:02 Lymph # (Auto) 1.7 10^3/uL (0.8-4.8) 07/12/24 20:02 Gillespie # (Auto) 0.5 10^3/uL (0.2-0.9) 07/12/24 20:02 Eos # (Auto) 0.1 10^3/uL (0.0-0.8) 07/12/24 20:02 Baso # (Auto) 0.0 10^3/uL (0.0-0.1) 07/12/24 20:02 Nucleated RBC % (auto) 0 % 07/12/24 20:02 Nucleated RBCs # 0.0 /100WBC 07/12/24 20:02 Sodium 137 mmol/L (136-145) 07/12/24 20:02 Potassium 3.8 mmol/L (3.5-5.1) 07/12/24 20:02 Chloride 101 mmol/L (98-107) 07/12/24 20:02 Carbon Dioxide 26 mmol/L (22-29) 07/12/24 20:02 Anion Gap 13.8 (5-19) 07/12/24 20:02 BUN 16 mg/dL (6-20) 07/12/24 20:02 Creatinine 0.8 mg/dL (0.5-0.9) 07/12/24 20:02 GFR Calculation 86.7 mL/min (90-130) L 07/12/24 20:02 Glucose 88 mg/dL (65-115) 07/12/24 20:02 Calculated Osmolality 285 mOsm/kg (285-295) 07/12/24 20:02 Calcium 8.9 mg/dL (8.5-10.5) 07/12/24 20:02 Total Bilirubin 0.3 mg/dL (0.15-1.2) 07/12/24 20:02 AST 17 U/L (0-32) 07/12/24 20:02 ALT 10 U/L (0-33) 07/12/24 20:02 Alkaline Phosphatase 77 U/L (35-105) 07/12/24 20:02 Total Protein 7.0 g/dL (6.6-8.7) 07/12/24 20:02 Albumin 4.3 g/dL (3.5-5.2) 07/12/24 20:02 Globulin 2.7 g/dL (1.3-4.6) 07/12/24 20:02 Lipase 10 U/L (13-60) L 07/12/24 20:02 HCG, Qual Negative (Negative) 07/12/24 20:02 Urine Color Yellow (Yellow) 07/12/24 19:49 Urine Appearance Clear (CLEAR) 07/12/24 19:49 Urine pH 6.5 (5-7) 07/12/24 19:49 Ur Specific Pilger 1.024 (1.005-1.030) 07/12/24 19:49 Urine Protein Negative (Negative) 07/12/24 19:49 Urine Glucose (UA) Negative (Normal) 07/12/24 19:49 Urine Ketones Negative (Negative) 07/12/24 19:49 Urine Blood Negative (Negative) 07/12/24 19:49 Urine Nitrate Negative (Negative) 07/12/24 19:49 Urine Bilirubin Negative (Negative) 07/12/24 19:49 Urine Urobilinogen 1.0 mg/dL (Negative) 07/12/24 19:49 Ur Leukocyte Esterase Trace (Negative) A 07/12/24 19:49 Urine RBC 0-2 /hpf (0-2) 07/12/24 19:49 Urine WBC 6-10 /hpf (0-5) 07/12/24 19:49 Ur Squamous Epith Cells 6-10 /hpf (0-5) 07/12/24 19:49 Amorphous Sediment Not Reportable 07/12/24 19:49 Urine Bacteria Trace /hpf (NONE) 07/12/24 19:49 Hyaline Casts 0-4 /lpf H 07/12/24 19:49 All radiology interpretation(s) finalized by discharge Discharge Plan Discharge Patient Disposition: Home Clinical Impression: Abdominal pain Qualifiers: Abdominal location: lower abdomen, unspecified Qualified Code(s): R10.30 - Lower abdominal pain, unspecified Condition: Stable Prescriptions: No Action acetaminophen 325 mg capsule 325 mg PO QID PRN (DME) cock up wrist splint See Rx Instructions .Route .MEDSUPPLY Qty: 1 0RF Rx Instructions: As directed Discharge Orders: Discharge ED (Routine); Ordered 07/12/24 Ordered By: Vitor Patterson Referrals: Du Fall MD [Primary Care Provider] - Patient Instructions: Abdominal Pain (ED), Pain Management Activity Restrictions/Additional Instructions: Follow-up with your primary care provider. Ibuprofen or Tylenol at home for pain. Drink plenty of fluids. Return with any new or worsening. Coding Level of Care Code ED [employer] for Becky Ca
--- NOTE | 2024-07-12 19:43 | CTR_ITS ---
PROCEDURE INFORMATION: Exam: CT Abdomen And Pelvis With Contrast Exam date and time: 07/12/2024 9:17 PM Age: 28 years old Clinical indication: Abdominal pain; Generalized; Prior surgery; Surgery date: 6+ months; Surgery type: Appy, tubes tied x3 yrs ago; Additional info: Lower abd pain for 5 months, getting worse, HX of appy and ovarian cysts TECHNIQUE: Imaging protocol: Computed tomography of the abdomen and pelvis with contrast. Radiation optimization: All CT scans at this facility use at least one of these dose optimization techniques: automated exposure control; mA and/or kV adjustment per patient size (includes targeted exams where dose is matched to clinical indication); or iterative reconstruction. Contrast material: OMNIPAQUE 350; Contrast volume: 100 ml; Contrast route: INTRAVENOUS (IV); COMPARISON: MR abdomen wo con [id number] 04/03/2020 4:44 PM RADIATION DOSE METRICS: Total DLP (mGy-cm): 452.62 FINDINGS: Lungs: Bilateral pulmonary nodules at the lung bases with the largest measuring 5 mm in the left lung base. Liver: Normal. No mass. Gallbladder and biliary ducts: Normal. No calcified stones. No ductal dilation. Pancreas: Normal. No ductal dilation. Spleen: Normal. No splenomegaly. Adrenal glands: Normal. No mass. Kidneys and ureters: Normal. No hydronephrosis. Stomach and bowel: Unremarkable. No obstruction. No mucosal thickening. Appendix: Status post appendectomy. Intraperitoneal space: Unremarkable. No free air. No significant fluid collection. Vasculature: Unremarkable. No abdominal aortic aneurysm. Lymph nodes: Unremarkable. No enlarged lymph nodes. Urinary bladder: Unremarkable as visualized. Reproductive: Bilateral ovarian follicles with a dominant follicle in the right. Bones/joints: Unremarkable. No acute fracture. Soft tissues: Unremarkable. CT/CT abdomen pelvis w con* [id number] IMPRESSION: No definite acute intra-abdominal or intrapelvic process.
[2024-07-12 19:54] VITALS: BP 126/75; RESP 72; O2SAT 100
[2024-07-12 20:05] LABS: Bacteria Urine Trace /hpf; Hyaline Casts Urine 0-4 /lpf; RBC Urine 0-2 /hpf (0-2)
[2024-07-12 20:17] LABS: Add Urine Microscopic? YES; Bilirubin Urine Negative (Negative); Blood Urine Negative (Negative); Glucose Urine UA Negative (Normal); Ketones Urine Negative (Negative); Leukocyte Esterase Urine Trace (Negative); Nitrate Urine Negative (Negative); Protein Urine Negative (Negative); Specific Gravity, Urine 1.024 (1.005-1.030); Urine Appearance Clear (CLEAR); Urine Color Yellow (Yellow); pH Urine 6.5 (5-7)
[2024-07-12 20:32] LABS: Basophils % 0.4 %; Eosinophils # 0.1 10^3/uL (0.0-0.8); Eosinophils % 2.3 %; Hematocrit 35.4 % (36-47); Lymphocytes # 1.7 10^3/uL (0.8-4.8); Lymphocytes % 32.4 %; Mean Corpuscular HGB Conc 33.6 g/dL (30-55); Mean Corpuscular Hemoglobin 31.7 pg (27-33); Mean Corpuscular Volume 94.4 fl (85-98); Mean Platelet Volume 9.4 fL (7.4-10.4); Monocytes # 0.5 10^3/uL (0.2-0.9); Monocytes % 9.8 %; Neutrophils # 2.84 10^3/uL (1.8-7.7); Neutrophils % 54.7 %; Nucleated Red Blood Cells % 0 %; Platelet Count 278 10^3/cmm (157-399); Red Blood Count 3.75 10^6/uL (3.85-5.65); Red Cell Distribution Width 12.9 % (12.1-15.1); White Blood Count 5.19 10^3/uL (3.29-11.43)
[2024-07-12 20:49] LABS: HCG, Serum Qual Negative (Negative)
[2024-07-12 20:55] LABS: Alanine Aminotransferase 10 U/L (0-33); Albumin Level 4.3 g/dL (3.5-5.2); Alkaline Phosphatase 77 U/L (35-105); Anion Gap 13.8 (5-19); Aspartate Amino Transferase 17 U/L (0-32); Blood Urea Nitrogen 16 mg/dL (6-20); Calcium 8.9 mg/dL (8.5-10.5); Carbon Dioxide 26 mmol/L (22-29); Chloride 101 mmol/L (98-107); Creatinine Clr Calc Pharmacy 96.3543; Globulin 2.7 g/dL (1.3-4.6); Glomerular Filtration Rate 86.7 mL/min (90-130); Glucose 88 mg/dL (65-115); Lipase 10 U/L (13-60); Osmolality Calculated 285 mOsm/kg (285-295); Potassium 3.8 mmol/L (3.5-5.1); Sodium 137 mmol/L (136-145); Total Bilirubin 0.3 mg/dL (0.15-1.2)
[2024-07-12 22:33] VITALS: BP 111/63; PULSE 85; RESP 14; O2SAT 99
== END 2024-07-12 22:33 | disposition home or self-care (01) ==
PROVIDERS: Emergency Provider Physician Assistant; PCP Family Medicine
DX: R10.30 Lower abdominal pain, unspecified (principal)
CPT/HCPCS: 36415; 74177; 80053; 81001; 83690; 84703; 85025; 99284; Q9967

== ENCOUNTER → 2024-08-10 10:25 | Outpatient (BNVA) | payer SELFPAY | PROVIDERS: PCP Family Medicine; Visit Provider Obstetrics & Gynecology | DX: N83.201 Unspecified ovarian cyst, right side (principal) | CPT/HCPCS: 76830 ==

== ENCOUNTER 2024-08-19 08:58 | Day surgery (SDC) | payer MEDICAID, SELFPAY ==
[2024-08-19] VITALS (10 sets, daily range): BP systolic 104–120; BP diastolic 64–90; PULSE 62–80; RESP 12–20; TEMP 36.1–36.7; O2SAT 96–100; BMI 26.5
--- NOTE | 2024-08-19 05:38 | P.HP_ITS ---
Same Day Surgery H&P Indication for Procedure/HPI DATE OF PROCEDURE: August 19, 2024 CHIEF COMPLAINT/INDICATIONFOR SURGICAL PROCEDURE: pelvic pain PREOP DIAGNOSIS: pelvic pain PLANNED PROCEDURE: Operation Date: 08/19/24 10:45 Proposed Procedures p Laparoscopy Diagnostic Laparoscopy w/possible pelvic Biopsy [id number], R10.2(Not Applicable) - Riki Alejandro MD 28 y.o. with pelvic pain now scheduled for laparoscopy, possible pelvic biopsies Medications/Allergies* Home Medications Medication Instructions Recorded Confirmed Type acetaminophen 325 mg capsule 325 mg PO QID PRN Pain (Scale 07/05/24 08/18/24 History Score 4-6) ibuprofen 200 mg capsule 200 mg PO PRN 08/18/24 08/18/24 History Allergies/Adverse Reactions Allergy/AdvReac Type Severity Reaction Status Date / Time No Known Allergies Allergy Verified 07/12/24 17:24 Pertinent History/Comorbid Conditions* Medical History (Updated 07/20/24 @ 00:00 by NICOLE Chapa) No pertinent past medical history Denies diabetes, asthma, hypertension, seizures, DVT/PE PCP: Dr. Fall Surgical History (Updated 04/12/21 @ 17:22 by Sharon Maxwell MD) S/P appendectomy 03/22/2021--laparoscopic appendectomy performed by Dr. Garzon at time of sterilization as appendix was chronically inflamed and thickened. Pathology showed acute severe appendicitis with serositis. No malignancy Status post tubal ligation 03/22/2021---laparoscopic bilateral total salpingectomy for sterilization performed by Dr. Lane at [facility] [place]. Pathology showed bilateral normal fallopian tubes without malignancy S/P wisdom tooth extraction Family History (Updated 03/07/21 @ 09:35 by Brenna Perla, RAS) Denies family history of Colon cancer Ovarian cancer Diabetes Heart disease Hyperlipidemia Breast cancer Hypertension Uterine cancer Thyroid disease Stroke Social History Smoking and tobacco/nicotine status: never used tobacco/nicotine Pertinent Exam Findings alert, oriented x 3, clear to auscultation bilaterally and regular rate & rhythm Recommendations Surgery/Procedure today Coding Level of Care Code Acute Code for Chg Fwd Time Spent (min) 20
--- NOTE | 2024-08-19 09:24 | ANES.PREANE2 ---
Pre-Anesthetic Assessment Height/Weight: Height 1.57 m Weight 65.771 kg Temp Pulse Resp BP Pulse Ox O2 Del Method 98.0 F 79 18 120/90 100 Room Air 08/19/24 09:12 08/19/24 09:12 08/19/24 09:12 08/19/24 09:12 08/19/24 09:12 08/19/24 09:12 Preop Diagnosis: chronic pelvic pain Operation Date: 08/19/24 10:45 Proposed Procedures p Laparoscopy Diagnostic Laparoscopy w/possible pelvic Biopsy [id number], R10.2(Not Applicable) - Riki Alejandro MD Familial anesthetic complications: None Was Beta Brannon taken within 24 hours: N/A Was Clonidine taken within 24 hours: N/A Last intake: Intake Last Liquid Date 08/18/24 Last Liquid Time 23:00 Last Solid Date 08/18/24 Last Solid Time 19:00 Social No alcohol and No tobacco Exam alert, oriented x 3, clear to auscultation bilaterally and regular rate & rhythm Airway Mallampati: Class II Dentition: full Anesthetic Plan ASA status: 1 Anesthesia: General Risk of > 500 ml blood loss (7ml/kg in children): No Medications/Allergies Home Medications Medication Instructions Recorded Confirmed Last Taken Type cock up wrist splint #1 ea 12/03/22 07/05/24 Unknown Rx acetaminophen 325 mg capsule 325 mg PO QID PRN Pain (Scale 07/05/24 08/18/24 Unknown History Score 4-6) ibuprofen 200 mg capsule 200 mg PO PRN 08/18/24 08/18/24 Unknown History Allergies Allergy/AdvReac Type Severity Reaction Status Date / Time No Known Allergies Allergy Verified 07/12/24 17:24 [facility] Anesthesia Medical History No pertinent past medical history Denies diabetes, asthma, hypertension, seizures, DVT/PE PCP: Dr. Fall Surgical History S/P appendectomy 03/22/2021--laparoscopic appendectomy performed by Dr. Garzon at time of sterilization as appendix was chronically inflamed and thickened. Pathology showed acute severe appendicitis with serositis. No malignancy Status post tubal ligation 03/22/2021---laparoscopic bilateral total [place] for [place] [facility] [place]ology showed bilateral normal fallopian tubes without malignancy S/P wisdom tooth extraction Family History Denies family history of Colon cancer Ovarian cancer Diabetes Heart disease Hyperlipidemia Breast cancer Hypertension Uterine cancer Thyroid disease Stroke Social History Smoking and tobacco/nicotine status: never used tobacco/nicotine Data Anesthesia Cardiac Studies: No Data to Display
[2024-08-19] MEDS: sodium chloride 0.9% 1,000 ML 30 ML IV (09:41)
--- NOTE | 2024-08-19 10:06 | W.PM.OPSUD ---
Surgery/Procedure H&P Update DATE OF PROCEDURE: August 19, 2024 DATE H&P PERFORMED: 08/19/25 H&P UPDATE INFORMATION: I have reviewed H&P completed within last 30 days, I have examined patient prior to procedure and No changes to prior documentation PREOP DIAGNOSIS: chronic pelvic pain PLANNED PROCEDURE: Operation Date: 08/19/24 10:45 Proposed Procedures p Laparoscopy Diagnostic Laparoscopy w/possible pelvic Biopsy [id number], R10.2(Not Applicable) - Riki Alejandro MD
--- NOTE | 2024-08-19 11:10 | P.OP_ITS ---
Operative Report Date of procedure: August 19, 2024 Pre-op diagnosis: pelvic pain Post-op diagnosis: Normal pelvis No evidence of endometriosis One adhesion between colon and right anterior abdominal wall Post-op findings: Normal pelvis No evidence of endometriosis One adhesion between colon and right anterior abdominal wall Procedure done: Laparoscopy Lysis of adhesion Implants: none Specimens removed/disposition: none Surgeon: Riki Alejandro MD Anesthesia: General Estimated blood loss (mL): 0 Complications: none Findings: Normal pelvis No evidence of endometriosis One adhesion between colon and right anterior abdominal wall Condition: stable Disposition: PACU Brief History: 29 y.o. with 6-month history pelvic pain Procedure: Informed consent obtained. The patient was taken to the OR and placed supine on the table. General endotracheal anesthesia was given. The patient was then p laced in supine position. The abdomen was prepped and draped in usual fashion. A lockett catheter was placed. A 5 mm subumbilical skin incision was made. A laparoscopic trocar with sheath was inserted into the peritoneal cavity under direct vision with the laparoscope. Pneumoperitoneum was achieved. A separate 5 mm incision was made in the left mid-abdominal quadrant under direct visualization to accommodate an additional trocar and sheath. The pelvis was explored with the laparoscope. Normal uterus and ovaries were seen. The fallopian tubes were absent from previous bilateral salpingectomy. No abnormalities were seen in the utero-ovarian ligaments, broad ligaments, anterior and posterior cul-de-sacs and pelvic side-lawrence. No white or red lesions, fenestrations, or vascular abnormalities were seen. There were no stellate lesions or fibrosis/adhesions seen. One single filmy adhesion was seen from a previous appendectomy site to the anterior abdominal wall. This was removed using cautery. No bleeding was seen The liver edge was visualized and was normal. The remainder of the pelvis was again examined and seen to be normal. All instruments were then removed from the abdominal cavity after the pneumoperitoneum was allowed to escape. The skin incisions were closed with 4-O monocryl. Dermabond was applied. The lockett catheter was removed. The patient was then awakened and taken to the recovery room in good condition. Postop condition stable. EBL 0 cc. There were no complications.
[2024-08-19] MEDS: fentaNYL 50 mcg/mL INJ 2mL IVP (11:35)
--- NOTE | 2024-08-19 12:30 | ANE.PACU2 ---
Inpatient post-anesthesia follow up: Airway intact: Yes Vital signs: Temperature 97.6 F Pulse Rate 69 Respiratory Rate 16 Blood Pressure 104/64 Pulse Oximetry 100 Oxygen Delivery Me thod Room Air Oxygen Flow Rate Fraction of Inspir ed Oxygen Hydration adequate: Yes Nausea and vomiting: No Pain level: 1 Mental status: Baseline
== END 2024-08-19 12:38 | disposition home or self-care (01) ==
PROVIDERS: PCP Family Medicine; Visit Provider Obstetrics & Gynecology
PROC: (CPT 49320; principal; 2024-08-19 10:35)
DX: R10.2 Pelvic and perineal pain (principal)
CPT/HCPCS: 49320; 51702; A4216; J1100; J1885; J2250; J2405; J2704; J3010; J3490; J7030

== ENCOUNTER 2025-03-10 23:53 | Emergency (ER) | payer MEDICAID, SELFPAY ==
[2025-03-10 23:58] VITALS: BP 123/80; PULSE 77; RESP 16; TEMP 37.1; O2SAT 100; BMI 26.4
[2025-03-11 01:42] LABS: Hematocrit 41.4 % (36-47); Hemoglobin 14.10 g/dL (11.27-16.99); Mean Corpuscular HGB Conc 34.1 g/dL (30-55); Mean Corpuscular Hemoglobin 31.1 pg (27-33); Mean Corpuscular Volume 91.2 fl (85-98); Nucleated Red Blood Cells % 0 %; Platelet Count 312 10^3/cmm (157-399); Red Blood Count 4.54 10^6/uL (3.85-5.65); White Blood Count 11.30 10^3/uL (3.29-11.43)
[2025-03-11 02:02] LABS: Alanine Aminotransferase 17 U/L (0-33); Albumin Level 4.8 g/dL (3.5-5.2); Alkaline Phosphatase 113 U/L (35-105); Anion Gap 17.5 (5-19); Aspartate Amino Transferase 32 U/L (0-32); Blood Urea Nitrogen 10 mg/dL (6-20); Calcium 9.4 mg/dL (8.5-10.5); Carbon Dioxide 30 mmol/L (22-29); Chloride 101 mmol/L (98-107); Creatinine Clr Calc Pharmacy 115.7959; Globulin 3.3 g/dL (1.3-4.6); Glucose 134 mg/dL (65-115); Osmolality Calculated 299 mOsm/kg (285-295); Potassium 4.5 mmol/L (3.5-5.1); Sodium 144 mmol/L (136-145); Total Protein 8.1 g/dL (6.6-8.7)
[2025-03-11 03:06] VITALS: BP 142/88; PULSE 70; O2SAT 99
[2025-03-11] MEDS: ondansetron hcl ODT 4 mg Tab PO (03:22)
[2025-03-11 03:30] LABS: Glucose Urine UA Negative (Normal); Nitrate Urine Negative (Negative)
[2025-03-11 03:32] VITALS: BP 113/71; O2SAT 99
[2025-03-11 03:35] LABS: Add Urine Microscopic? YES
[2025-03-11 03:39] LABS: Lipase 249 U/L (13-60)
[2025-03-11 03:43] LABS: HCG Qualitative Urine. Negative (Negative)
[2025-03-11 04:09] LABS: Specific Gravity, Urine 1.036 (1.005-1.030)
[2025-03-11 04:10] LABS: UA Slide Review UA Slide Review Perf
--- NOTE | 2025-03-11 04:29 | CTR_ITS ---
PROCEDURE INFORMATION: Exam: CT Abdomen And Pelvis With Contrast Exam date and time: 03/11/2025 4:58 AM Age: 29 years old Clinical indication: Condition or disease; Pancreatic condition; Pancreatitis; Prior surgery; Surgery date: 6+ months; Surgery type: Appy, tubal TECHNIQUE: Imaging protocol: Computed tomography of the abdomen and pelvis with contrast. Radiation optimization: All CT scans at this facility use at least one of these dose optimization techniques: automated exposure control; mA and/or kV adjustment per patient size (includes targeted exams where dose is matched to clinical indication); or iterative reconstruction. Contrast material: OMNI 350; Contrast volume: 100 ml; Contrast route: INTRAVENOUS (IV); COMPARISON: CT abdomen pelvis w con* [id number] 07/12/2024 9:17 PM RADIATION DOSE METRICS: Total DLP (mGy-cm): 426.24 FINDINGS: Liver: Hepatic steatosis. Negative for liver mass. Gallbladder and biliary ducts: Normal. No calcified stones. No ductal dilation. Pancreas: Peripancreatic stranding is centered around the tail. Negative for pseudocyst. Negative for mass. Negative for main duct dilation. Spleen: Normal. No splenomegaly. Adrenal glands: Normal. No mass. Kidneys and ureters: Normal. No hydronephrosis. Stomach and bowel: Unremarkable. No obstruction. No mucosal thickening. Appendix: Appendectomy. Intraperitoneal space: Unremarkable. No free air. No significant fluid collection. Vasculature: Unremarkable. No abdominal aortic aneurysm. Lymph nodes: Unremarkable. No enlarged lymph nodes. Urinary bladder: Unremarkable as visualized. Reproductive: Unremarkable as visualized. Bones/joints: Unremarkable. No acute fracture. Soft tissues: Unremarkable. CT/CT abdomen pelvis w con* [id number] IMPRESSION: Acute pancreatitis.
--- NOTE | 2025-03-11 04:36 | ED_ITS ---
HPI - Nausea/Vomiting/Diarrhea 2 General: Chief complaint: Nausea/Vomiting/Diarrhea Stated complaint: n/v abd pain Time Seen by Provider: 03/11/25 03:15 History of Present Illness: 29-year-old female with heavy alcohol us e presents after one day of constant epigastric pain accompanied by repeated vomiting. She reports inability to tolerate even small sips of water; pain rated 7.5?8/10, worsened by oral intake. No prior similar episode. Denies prior gallbladder disease. No fever, chills, jaundice, chest pain, or shortness of breath. In triage she was afebrile with otherwise stable vitals. Labs drawn prior to exam show normal WBC and CMP; lipase 249. AST, ALT, and total bilirubin are normal. She acknowledges drinking ?a lot all the time? but more heavily over the past several days and states this episode has convinced her to stop alcohol. Related Data Home Medications ?Medication ?Instructions ?Recorded ?Confirmed acetaminophen 325 mg capsule 325 mg PO QID PRN Pain (S meño 07/05/24 08/30/24 Score 4-6) ibuprofen 200 mg capsule 200 mg PO PRN 08/18/2408/30 Previous Rx's ?Medication ?Instructions ?Recorded oxycodone-acetaminophen 5 mg-325 1 tab PO Q6H PRN pain 7 days #20 08/20/24 mg tablet (Percocet) tabs gabapentin 100 mg capsule 100 mg PO BID #60 caps 08/30 ondansetron 4 mg disintegrating 4 mg PO Q8H PRN nausea and 03/11/25 tablet vomiting 5 days #30 tabs oxycodone-acetaminophen 5 mg-325 1 tab PO Q8H PRN pain #20 tabs 03/11/25 mg tablet (Percocet) Allergies Allergy/AdvReac Type Severity Reaction Status Date / Time No Known Allergies Allergy Verified 08/30/24 13:10 [facility] ED 2 PFS: Medical History (Updated 03/11/25 @ 06:36 by Duran Ibarra MD) No pertinent past medical history Denies diabetes, asthma, hypertension, seizures, DVT/PE PCP: Dr. Fall Surgical History (Updated 08/30/24 @ 13:12 by Shaun Jarvis) S/P appendectomy 03/22/2021--laparoscopic appendectomy performed by Dr. Garzon at time of sterilization as appendix was chronically inflamed and thickened. Pathology showed acute severe appendicitis with serositis. No malignancy Status post tubal ligation 03/22/2021---laparoscopic bilateral total salpingectomy for sterilization performed by Dr. Lane at [facility] [place]. Pathology showed bilateral normal fallopian tubes without malignancy S/P wisdom tooth extraction Family History Denies family history of Colon cancer Ovarian cancer Diabetes Heart disease Hyperlipidemia Breast cancer Hypertension Uterine cancer Thyroid disease Stroke Social History Smoking and tobacco/nicotine status: never used tobacco/nicotine Female Reproductive History: Date of last menstrual period: 02/18/25 Physical Exam 2 Const: COMMON NORMALS: no acute distress, patient oriented x3 and alert HENMT: COMMON NORMALS: normocephalic and atraumatic HEAD & SCALP: n ormocephalic and atraumatic Eye: COMMON NORMALS: Equal, round and reactive pupils present, EOMs intact bilaterally and no scleral icterus PUPIL: Yes Equal, round and reactive pupils present Resp: COMMON NORMALS: normal respiratory effort and No retractions Cardio: COMMON NORMALS: regular rate, regular rhythm and No murmurs present (Cardio) RATE: regular rate RHYTHM: regular rhythm GI: OTHER: Abdomen: [id number] epigastric tenderness to palpation; no right upper quadrant tenderness; no peritoneal signs. Neuro: COMMON NORMALS: patient oriented x3 SENSORIUM/ORIENTATION: Yes alert Skin: COMMON NORMALS: no rashes or lesions noted GENERAL SKIN EXAM: no rashes or lesions noted Course 2 Vital Signs: Vital signs: Vital Signs Temperature 98.7 F 03/10/25 23:58 Pulse Rate 60 03/11/25 06:32 Respiratory Rate 16 03/11/25 04:37 Blood Pressure 115/71 03/11/25 06:32 Pulse Oximetry 98 03/11/25 06:32 Oxygen Delivery Me thod Room Air 03/10/25 23:58 MDM - Nausea/Vomiting/Diarrhea Medical Decision Making The patient presents with acute epigastric pain, nausea, and vomiting after heavy alcohol consumption; labs reveal mildly elevated lipase with otherwise normal chemistries and liver enzymes. Vital signs are stable and afebrile. Exam shows marked epigastric tenderness without right upper quadrant pain and frequent retching; remainder of exam unremarkable. Labs: WBC and CMP within normal limits, lipase 249, normal AST/ALT and bilirubin. Will obtain CT abd/pel to confirm diagnosis. Pancreatitis is the working diagnosis, most likely alcohol-induced. Gallstone pancreatitis considered unlikely given normal liver function tests. Plan: Establish intravenous access, administer aggressive IV fluids, morphine for pain, and ondansetron for nausea. Trial small sips of water/ice after medications; if able to tolerate oral intake and pain is controlled, may discharge with oral analgesics and anti-emetics, then advance diet slowly. If symptoms persist or oral intake fails, admit for 1?2 days for continued IV hydration and monitoring. Patient agreeable to either course. Update: Patient feel much better, pain currently 2 of 10, able to drink water. Wants to go home and I feel this is reasonable. Will give a short course of Percocet and Zofran with instructions to gently advance diet from clear liquids. She knows that she is welcome back in the emergency department if symptoms get worse despite this intervention. CT scan confirms uncomplicated acute pancreatitis without abscess or gangrene Lab Data 03/11/25 01:37 03/11/25 01:37 Radiology Impressions Abdomen/Pelvis CT 03/11/25 04:29 IMPRESSION: Acute pancreatitis. Laboratory Results WBC 11.30 10^3/uL (3.29-11.43) 03/11/25 01:37 RBC 4.54 10^6/uL (3.85-5.65) 03/11/25 01:37 Hgb 14.10 g/dL (11.27-16.99) 03/11/25 01:37 Hct 41.4 % (36-47) 03/11/25 01:37 MCV 91.2 fl (85-98) 03/11/25 01:37 MCH 31.1 pg (27-33) 03/11/25 01:37 MCHC 34.1 g/dL (30-55) 03/11/25 01:37 RDW 12.1 % (12.1-15.1) 03/11/25 01:37 Plt Count 312 10^3/cmm (157-399) 03/11/25 01:37 MPV 9.0 fL (7.4-10.4) 03/11/25 01:37 Neut % (Auto) 90.3 % 03/11/25 01:37 Lymph % (Auto) 4.4 % 03/11/25 01:37 [place] % (Auto) 4.7 % 03/11/25 01:37 Eos % (Auto) 0.0 % 03/11/25 01:37 Baso % (Auto) 0.2 % 03/11/25 01:37 Neut # (Auto) 10.21 10^3/uL (1.8-7.7) H 03/11/25 01:37 Lymph # (Auto) 0.5 10^3/uL (0.8-4.8) L 03/11/25 01:37 [place] # (Auto) 0.5 10^3/uL (0.2-0.9) 03/11/25 01:37 Eos # (Auto) 0.0 10^3/uL (0.0-0.8) 03/11/25 01:37 Baso # (Auto) 0.0 10^3/uL (0.0-0.1) 03/11/25 01:37 Nucleated RBC % (auto) 0 % 03/11/25 01:37 Nucleated RBCs # 0.0 /100WBC 03/11/25 01:37 Sodium 144 mmol/L (136-145) 03/11/25 01:37 Potassium 4.5 mmol/L (3.5-5.1) 03/11/25 01:37 Chloride 101 mmol/L (98-107) 03/11/25 01:37 Carbon Dioxide 30 mmol/L (22-29) H 03/11/25 01:37 Anion Gap 17.5 (5-19) 03/11/25 01:37 BUN 10 mg/dL (6-20) 03/11/25 01:37 Creatinine 0.7 mg/dL (0.5-0.9) 03/11/25 01:37 GFR Calculation 100.4 mL/min (90-130) 03/11/25 01:37 Glucose 134 mg/dL (65-115) H 03/11/25 01:37 Calculated Osmolality 299 mOsm/kg (285-295) H 03/11/25 01:37 Calcium 9.4 mg/dL (8.5-10.5) 03/11/25 01:37 Total Bilirubin 0.7 mg/dL (0.15-1.2) 03/11/25 01:37 AST 32 U/L (0-32) 03/11/25 01:37 ALT 17 U/L (0-33) 03/11/25 01:37 Alkaline Phosphatase 113 U/L (35-105) H 03/11/25 01:37 Total Protein 8.1 g/dL (6.6-8.7) 03/11/25 01:37 Albumin 4.8 g/dL (3.5-5.2) 03/11/25 01:37 Globulin 3.3 g/dL (1.3-4.6) 03/11/25 01:37 Lipase 249 U/L (13-60) H 03/11/25 01:37 HCG, Qual Negative (Negative) 03/11/25 03:22 Urine Color Dark yellow (Yellow) A 03/11/25 03:22 Urine Appearance Cloudy (CLEAR) A 03/11/25 03:22 Urine pH 6.5 (5-7) 03/11/25 03:22 Ur Specific [place] 1.036 (1.005-1.030) H 03/11/25 03:22 Urine Protein 2+ (Negative) A 03/11/25 03:22 Urine Glucose (UA) Negative (Normal) 03/11/25 03:22 Urine Ketones 2+ (Negative) H 03/11/25 03:22 Urine Blood Negative (Negative) 03/11/25 03:22 Urine Nitrate Negative (Negative) 03/11/25 03:22 Urine Bilirubin Negative (Negative) 03/11/25 03:22 Urine Urobilinogen 1.0 mg/dL (Negative) 03/11/25 03:22 Ur Leukocyte Esterase Negative (Negative) 03/11/25 03:22 Urine RBC 6-10 /hpf (0-2) 03/11/25 03:22 Urine WBC 11-20 /hpf (0-5) H 03/11/25 03:22 Ur Squamous Epith Cells 11-20 /hpf (0-5) H 03/11/25 03:22 Amorphous Sediment Not Reportable 03/11/25 03:22 Urine Bacteria 4+ /hpf (NONE) H 03/11/25 03:22 Hyaline Casts 9.07 /lpf 03/11/25 03:22 All radiology interpretation(s) finalized by discharge Discharge Plan Discharge Patient Disposition: Home Clinical Impression: Acute alcoholic pancreatitis Condition: Stable Prescriptions: New oxycodone-acetaminophen [Percocet] 5-325 mg tablet 1 tab PO Q8H PRN (Reason: pain) Qty: 20 0RF ondansetron 4 mg tablet,disintegrating 4 mg PO Q8H PRN (Reason: nausea and vomiting) 5 Days Qty: 30 0RF No Action acetaminophen 325 mg capsule 325 mg PO QID PRN (Reason: Pain (Scale Score 4-6)) gabapentin 100 mg capsule 100 mg PO BID Qty: 60 1RF oxycodone-acetaminophen [Percocet] 5-325 mg tablet 1 tab PO Q6H PRN (Reason: pain) 7 Days Qty: 20 0RF ibuprofen 200 mg Capsule 200 mg PO PRN Discharge Orders: Discharge ED (Routine); Ordered 03/11/25 Ordered By: Duran Ibarra Referrals: Du Fall MD [Primary Care Provider, [facility]] Patient Instructions: Pancreatitis (ED), Patient Portal & Linda Instructions Print Language: Japanese Coding Level of Care Code ED Registered Nurse Post Partum for Becky Ca
[2025-03-11 04:37] VITALS: RESP 16
[2025-03-11] MEDS: ondansetron 2 mg/ML SDV 2 mL 4 MG IVP (04:37)
[2025-03-11] MEDS: morphine 4 mg/mL SDV 1 mL 6 MG IVP (04:37)
[2025-03-11 04:51] VITALS: BP 124/77; PULSE 68; O2SAT 98
[2025-03-11] MEDS: iohexol 350 mg/mL 500 mL Btl (per mL) IV (05:02)
[2025-03-11 06:32] VITALS: BP 115/71; PULSE 60; O2SAT 98
[2025-03-11 06:49] VITALS: BP 125/55; PULSE 75; O2SAT 100
== END 2025-03-11 06:50 | disposition home or self-care (01) ==
PROVIDERS: Emergency Provider Student in an Organized Health Care Education/Training Program; PCP Family Medicine
DX: K85.20 Alcohol induced acute pancreatitis without necrosis or infection (principal)
CPT/HCPCS: 36415; 74177; 80053; 81001; 81025; 83690; 85025; 96361; 96374; 96375; 99285; J2270; J2405; J7030; Q0162